=== PATIENT | female | born 1965 | race Caucasian/White ===

== ENCOUNTER 2017-01-16 07:04 | Observation (INO) | payer MEDICARE, OTHER ==
[2017-01-16] MEDS ORDERED: methylPREDNISolone Depo 80 mg/ml Inj ONE (11:17)
[2017-01-16] MEDS ORDERED: Lidocaine 1% Inj (20ml) ONE (11:18)
[2017-01-16] MEDS ORDERED: Bupivacaine HCl 0.5% PF (10 ml) Inj ONE (11:18)
[2017-01-16] MEDS ORDERED: Midazolam 2 MG/2 ML VIAL ONE (11:26)
[2017-01-16] MEDS ORDERED: Lactated Ringer's 1,000 ML IV ONE (11:28)
[2017-01-16] MEDS ORDERED: Lidocaine 1% Inj (20ml) IJ ONE (11:35)
[2017-01-16] MEDS ORDERED: methylPREDNISolone Depo 80 mg/ml Inj IM ONE (11:35)
[2017-01-16] MEDS ORDERED: Bupivacaine HCl 0.5% PF (10 ml) Inj IJ ONE (11:35)
[2017-01-16] MEDS ORDERED: Dexamethasone 4 mg/1 ml IVP PRN (12:33)
[2017-01-16] MEDS ORDERED: Morphine 4 MG/ML VIAL IVP PRN (15:30)
--- NOTE | 2017-01-16 19:28 | CARD ---
APPROVED REPORT EKG Measurement Heart [id number] <Conclusion> Demand Ventricular paced rhythm Underlying rhythm is sinus Abnormal ECG
[2017-01-16] MEDS: Lactated Ringer's 1,000 ML IV SCH (22:28)
--- NOTE | 2017-01-17 03:08 | OP ---
PROCEDURE DATE: 01/16/2017 PREOPERATIVE DIAGNOSIS: Left occipital neuralgia. POSTOPERATIVE DIAGNOSIS: Left occipital neuralgia PROCEDURE: Radiofrequency lesion of left occipital greater and lesser occipital nerves. SURGEON: Dr. Cline. CO-SURGEON AND THREADING MACHINE SETTER: Dr. Hernandez DESCRIPTION OF PROCEDURE: Patient was brought to the operating room, placed in a right lateral position, left occipital area was thoroughly prepped and draped in a sterile manner. At this point, lidocaine and epinephrine has been used in the left occipital area and occipital groove and with the help of an ultrasound, the occipital artery has been noted and medial to that, the occipital nerve anatomically identified by pressing the area. At this point, the needles have been placed near the lesser and greater occipital nerves and initially they have been stimulated and pain was noted. The sensations were noted going up to the occipital area corresponding distribution. Later the radiofrequency lesion has been applied by stimulating the nerves and giving thermal heat with radiofrequency lesions. Once this has been done, no focal deficits noted. Patient was found to be pain free. The needles have been removed and patient tolerated the procedure well. Justin Cline MD CHAN
[2017-01-17] MEDS ORDERED: Levothyroxine 100 MCG TAB PO SCH (06:30)
[2017-01-17 08:07] VITALS: BP 113/71; PULSE 69; RESP 20; TEMP 98.1; O2SAT 98
[2017-01-17] MEDS: Lactated Ringer's 1,000 ML IV SCH ×2 (09:39→09:40)
[2017-01-17] MEDS: Oxycodone/Acetaminophen 5/325 mg Tab PO PRN ×2 (09:50→13:14)
--- NOTE | 2017-01-17 09:56 | CP.PCM.CON ---
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 She had a resection of the same but since has had several recurrences with several surgeries for the same. She has been on chemotherapy with Temodar off and on since. She was admitted for radiofrequncy treatment of neuropathy.She will get her chemotherapy as soon as her insurance approves of it. Past Patient History - Infectious Disease Hx of Infectious Diseases: None - Tetanus Immunizations Tetanus Immunization: Unknown - Past Medical History & Family History Past Medical History?: Yes - Past Social History Smoking Status: Never Smoked - CARDIAC Hx Cardiac Disorders: Yes Hx Angina: Yes Hx Cardia Arrhythmia: No Hx Circulatory Problems: No Hx Congestive Heart Failure: No Hx Heart Attack: No Hx Heart Murmur: No Hx Heart Transplant: No Hx Hypercholesterolemia: Yes Hx Hypertension: Yes Hx Hypotension: Yes Hx Internal Defibrillator: No Hx Mitral Valve Prolapse: No Hx Pacemaker: Yes Hx Peripheral Edema: No Hx Peripheral Vascular Disease: No - PULMONARY Hx Respiratory Disorders: Yes Hx Asthma: Yes Hx Bronchitis: No Hx Chronic Obstructive Pulmonary Disease (COPD): No Hx Emphysema: No Hx Lung Cancer: No Hx Pneumonia: No Hx Pulmonary Edema: No Hx Pulmonary Embolism: No Hx Respiratory Aspiration: No Hx Respiratory Tract Infection: No Hx Sleep Apnea: No Hx Tuberculosis: No - NEUROLOGICAL Hx Neurological Disorder: Yes Hx Alzheimer's Disease: No HX Cerebrovascular Accident: No Hx Dementia: No Hx Dizziness: Yes Hx Meningitis: No Hx Migraine: No Hx Multiple Sclerosis: No Hx Paralysis: No Hx Parkinson's Disease: No Hx Seizures: Yes Hx Syncope: Yes Hx Transient Ischemic Attacks (TIA): No Hx Vertigo: No Other/Comment: brain tumors - HEENT Hx HEENT Problems: No Hx Blind: No Hx Cataracts: No 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) Hx Difficulty Chewing: No Hx Epistaxis: No Hx Glaucoma: No Hx Macular Degeneration: No Other/Comment: Poor vision to bilateral eyes R>L - RENAL Hx Chronic Kidney Disease: Yes Hx Kidney Stones: Yes Hx Neurogenic Bladder: No Hx Pyelonephritis: No Hx Renal (Kidney) Cancer: No Hx Renal Failure: Yes - ENDOCRINE/METABOLIC Hx Endocrine Disorders: Yes Hx Adrenal Cancer: No Hx Diabetes Insipidus: No Hx Diabetes Mellitus Type 1: Yes Hx Diabetes Mellitus Type 2: Yes Hx Hyperthyroidism: No Hx Hypothyroidism: Yes Hx Systemic Lupus Erythematosus: No - HEMATOLOGICAL/ONCOLOGICAL Hx Blood Disorders: No Hx AIDS: No Hx Anemia: Yes Hx Blood Transfusions: Yes Hx Blood Transfusion Reaction: No Hx Bruising: No Hx Cancer: Yes Hx Chemotherapy: Yes Hx Cirrhosis: No Hx Gum Bleeding: No Hx Hemophilia: No Hx Hepatitis A: No Hx Hepatitis B: No Hx Hepatitis C: No Hx Human Immunodeficiency Virus (HIV): No Hx Leukemia: No Hx Metastesis: No Hx Shingles: No Hx Sickle Cell Disease: No Hx Unexplained Bleeding: No Hx von Willebrand's Disease: No - INTEGUMENTARY Hx Dermatological Problems: No Hx Basil Cell: No Hx Fontenot: No Hx Cellulitis: No Hx Eczema: No Hx Melanoma: No Hx Psoriasis: No Hx Squamous Cell: No - MUSCULOSKELETAL/RHEUMATOLOGICAL Hx Musculoskeletal Disorders: No Hx Arthritis: No Hx Back Pain: No Hx Degenerative Joint Disease: No Hx Falls: No Hx Fractures: No Hx Gout: No Hx Herniated Disk: No Hx Myasthenia Gravis: No Hx Osteoarthritis: No Hx Osteomyelitis: No Hx Osteoporosis: No Hx Rhabdomyolysis: No Hx Rheumatoid Arthritis: Yes Hx Spinal Stenosis: No Hx Unsteady Gait: Yes - GASTROINTESTINAL Hx Gastrointestinal Disorders: No Hx Bowel Surgery: No Hx Clostridium Difficile: No Hx Colitis: No Hx Colostomy: No Hx Crohn's Disease: No Hx Diverticulitis: No Hx Esophageal Varices: No Hx Fatty Liver Disease: No Hx Gall Bladder Disease: No Hx Gastritis: No Hx Gastroesophageal Reflux: No Hx Hemorrhoids: No Hx Ileostomy: No Hx Irritable Bowel: No Hx Liver Failure: No Hx Pancreatitis: No HX Swallowing Problems: No Hx Ulcer: No - GENITOURINARY/GYNECOLOGICAL Hx Genitourinary Disorders: No Hx Bladder Cancer: No Hx Bladder Stone: No Hx Cervical Cancer: No Hx Hematuria: No Hx Incontinence: No Hx Ovarian Cancer: No Hx Postmenopausal Bleeding: No Hx Reproductive Disorders: No Hx Sexually Transmitted Disorders: No Hx Uterine Cancer: No Hx Urinary Tract Infection: No - PSYCHIATRIC Hx Psychophysiologic Disorder: No Hx Anxiety: Yes Hx Bipolar Disorder: No Hx Depression: Yes Hx Emotional Abuse: No Hx Hallucinations: No Hx Panic Symptoms: No Hx Paranoia: No Hx Post Traumatic Stress Disorder: No Hx Psychosis: No Hx Physical Abuse: No Hx Schizophrenia: No Hx Sexual Abuse: No Hx Substance Use: No - SURGICAL HISTORY Hx Surgeries: Yes Hx Abdominal Aortic Aneurysm Repair: No Hx Amputation: No Hx Angiogram: No Hx Angioplasty: No Hx Appendectomy: No Hx Arteriovenous Shunt: No Hx Arthroscopy: No Hx Bile Duct Stent: No Hx Breast Biopsy: No Hx Cataract Extraction: No Hx Cardiac Catheterization: No Hx Carotid Endarterectomy: No Hx Section: No Hx Cholecystectomy: No Hx Coronary Artery Bypass Graft: No Hx Coronary Stent: No Hx Dilation and Curettage: No Hx Eye Surgery: No Hx Femoral-Popliteal Bypass Graft: No Hx Gastric Bypass Surgery: No Hx Herniorrhaphy: No Hx Hysterectomy: Yes (partial) Hx Joint Replacement: No Hx Kidney Transplant: No Hx Liver Transplant: No Hx Mastectomy: No Hx Musculoskeletal Surgery: No Hx Open Heart Surgery: No Hx Open Reduction Internal Fixation: No Hx Orthopedic Surgery: No Hx Parathyroidectomy: No Hx Penile Implant: No Hx Pulmonary Surgery: No Hx Splenectomy: No Hx Thyroidectomy: No Hx Tonsillectomy: Yes Hx Tubal Ligation: Yes Hx Valve Replacement: No Hx Vascular Surgery: No Hx Vascular Access Device: No Other/Comment: pacemaker,brain tumor,kidney stones removed - ANESTHESIA Hx Anesthesia: Yes Hx Anesthesia Reactions: No Hx Malignant Hyperthermia: No Has any member of the family had a problem w/ anesthesia?: No Meds Allergies/Adverse Reactions: Allergies Allergy/AdvReac Type Severity Reaction Status Date / Time seasonal Allergy CONGESTION Uncoded 09/28/15 13:52 - Medications Medications: Current Medications Alprazolam (Xanax) 2 mg PO TID PRN PRN Reason: Anxiety Last Admin: 01/16/17 22:27 Dose: 2 mg Carbamazepine (Tegretol) 200 mg PO Q12 [facility] Last Admin: 01/16/17 22:28 Dose: 200 mg Famotidine (Pepcid) 20 mg PO BID [facility] Last Admin: 01/16/17 18:18 Dose: 20 mg Hydromorphone HCl (Dilaudid) 0.5 mg IVP Q15MIN PRN PRN Reason: Pain, moderate (4-7) Lactated Ringer's (Lactated Ringer's) 1,000 mls @ 100 mls/hr IV .Q10H [facility] Last Admin: 01/16/17 22:28 Dose: 100 mls/hr Levetiracetam (Keppra) 1,000 mg PO BID [facility] Last Admin: 07/18/17 20:30 Dose: 1,000 mg Levothyroxine Sodium (Synthroid) 100 mcg PO DAILY@0630 [facility] Last Admin: 01/17/17 06:14 Dose: 100 mcg Midodrine (Proamatine) 2.5 mg PO TID [facility] Last Admin: 01/16/17 20:30 Dose: 2.5 mg Montelukast Sodium (Singulair) 10 mg PO [facility] Last Admin: 01/16/17 22:28 Dose: 10 mg Morphine Sulfate (Morphine) 2 mg IVP Q6 PRN PRN Reason: Pain, severe (8-10) Last Admin: 01/17/17 02:15 Dose: 2 mg Oxycodone/Acetaminophen (Percocet 5/325 Mg Tab) 2 tab PO Q4 PRN PRN Reason: Pain, moderate (4-7) Stop: 01/19/17 15:03 Paroxetine HCl (Paxil) 40 mg PO DAILY [facility] Pregabalin (Lyrica) 75 mg PO BID [facility] Last Admin: 01/16/17 18:17 Dose: 75 mg Topiramate (Topamax) 50 mg PO BID [facility] Last Admin: 01/16/17 20:31 Dose: 50 mg Trazodone HCl (Desyrel) 100 mg PO [facility] Last Admin: 01/16/17 22:28 Dose: 100 mg Physical Exam - Additional Findings Additional findings: Physical exam; Pt is alert, well oriented in no acute distress neck; Supple, no adenopathy Chest; clear, no rales or rhonchi Heart; RSR, no murmur Abd; Soft, no mass, no h/s megaly Results - Vital Signs Recent Vital Signs: Last Vital Signs Temp 98.1 F 01/17/17 08:06 Pulse 69 01/17/17 08:06 Resp 20 01/17/17 08:06 BP 113/71 01/17/17 08:06 Pulse Ox 98 01/17/17 08:06 - Labs Labs: Laboratory Results - last 24 hr 01/16/17 01/16/17 01/16/17 12:23 16:20 21:10 POC Glucose (mg/dL) 81 101 124 H 01/17/17 06:14 POC Glucose (mg/dL) 114 H Assessment & Plan - Assessment and Plan (Free Text) Assessment: Impression; Cranial malignant meningioma Plan: Plan; Will restart chemo after discharge
--- NOTE | 2017-01-17 10:39 | CP.PCM.HP ---
History of Present Illness - History of Present Illness History of Present Illness: This is a 51 y/o female with chronic headache from chronic malignant meningioma. Has been suffering from neuropathy from the condition. Had received chemotherapy in the past. Has been on chronic pain meds. Admitted for radiofreq ablationof the occipital nerve Post op period was unremarkable. Present on Admission - Present on Admission Any Indicators Present on Admission: No History of DVT/PE: No History of Uncontrolled Diabetes: No Urinary Catheter: No Decubitus Ulcer Present: No Review of Systems - Constitutional Constitutional: Fatigue, Headache, Lethargy Past Patient History - Infectious Disease Hx of Infectious Diseases: None - Tetanus Immunizations Tetanus Immunization: Unknown - Past Medical History & Family History Past Medical History?: Yes - Past Social History Smoking Status: Never Smoked - CARDIAC Hx Cardiac Disorders: Yes Hx Angina: Yes Hx Cardia Arrhythmia: No Hx Circulatory Problems: No Hx Congestive Heart Failure: No Hx Heart Attack: No Hx Heart Murmur: No Hx Heart Transplant: No Hx Hypercholesterolemia: Yes Hx Hypertension: Yes Hx Hypotension: Yes Hx Internal Defibrillator: No Hx Mitral Valve Prolapse: No Hx Pacemaker: Yes Hx Peripheral Edema: No Hx Peripheral Vascular Disease: No - PULMONARY Hx Respiratory Disorders: Yes Hx Asthma: Yes Hx Bronchitis: No Hx Chronic Obstructive Pulmonary Disease (COPD): No Hx Emphysema: No Hx Lung Cancer: No Hx Pneumonia: No Hx Pulmonary Edema: No Hx Pulmonary Embolism: No Hx Respiratory Aspiration: No Hx Respiratory Tract Infection: No Hx Sleep Apnea: No Hx Tuberculosis: No - NEUROLOGICAL Hx Neurological Disorder: Yes Hx Alzheimer's Disease: No HX Cerebrovascular Accident: No Hx Dementia: No Hx Dizziness: Yes Hx Meningitis: No Hx Migraine: No Hx Multiple Sclerosis: No Hx Paralysis: No Hx Parkinson's Disease: No Hx Seizures: Yes Hx Syncope: Yes Hx Transient Ischemic Attacks (TIA): No Hx Vertigo: No Other/Comment: brain tumors - HEENT Hx HEENT Problems: No Hx Blind: No Hx Cataracts: No 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) Hx Difficulty Chewing: No Hx Epistaxis: No Hx Glaucoma: No Hx Macular Degeneration: No Other/Comment: Poor vision to bilateral eyes R>L - RENAL Hx Chronic Kidney Disease: Yes Hx Kidney Stones: Yes Hx Neurogenic Bladder: No Hx Pyelonephritis: No Hx Renal (Kidney) Cancer: No Hx Renal Failure: Yes - ENDOCRINE/METABOLIC Hx Endocrine Disorders: Yes Hx Adrenal Cancer: No Hx Diabetes Insipidus: No Hx Diabetes Mellitus Type 1: Yes Hx Diabetes Mellitus Type 2: Yes Hx Hyperthyroidism: No Hx Hypothyroidism: Yes Hx Systemic Lupus Erythematosus: No - HEMATOLOGICAL/ONCOLOGICAL Hx Blood Disorders: No Hx AIDS: No Hx Anemia: Yes Hx Blood Transfusions: Yes Hx Blood Transfusion Reaction: No Hx Bruising: No Hx Cancer: Yes Hx Chemotherapy: Yes Hx Cirrhosis: No Hx Gum Bleeding: No Hx Hemophilia: No Hx Hepatitis A: No Hx Hepatitis B: No Hx Hepatitis C: No Hx Human Immunodeficiency Virus (HIV): No Hx Leukemia: No Hx Metastesis: No Hx Shingles: No Hx Sickle Cell Disease: No Hx Unexplained Bleeding: No Hx von Willebrand's Disease: No - INTEGUMENTARY Hx Dermatological Problems: No Hx Basil Cell: No Hx Fontenot: No Hx Cellulitis: No Hx Eczema: No Hx Melanoma: No Hx Psoriasis: No Hx Squamous Cell: No - MUSCULOSKELETAL/RHEUMATOLOGICAL Hx Musculoskeletal Disorders: No Hx Arthritis: No Hx Back Pain: No Hx Degenerative Joint Disease: No Hx Falls: No Hx Fractures: No Hx Gout: No Hx Herniated Disk: No Hx Myasthenia Gravis: No Hx Osteoarthritis: No Hx Osteomyelitis: No Hx Osteoporosis: No Hx Rhabdomyolysis: No Hx Rheumatoid Arthritis: Yes Hx Spinal Stenosis: No Hx Unsteady Gait: Yes - GASTROINTESTINAL Hx Gastrointestinal Disorders: No Hx Bowel Surgery: No Hx Clostridium Difficile: No Hx Colitis: No Hx Colostomy: No Hx Crohn's Disease: No Hx Diverticulitis: No Hx Esophageal Varices: No Hx Fatty Liver Disease: No Hx Gall Bladder Disease: No Hx Gastritis: No Hx Gastroesophageal Reflux: No Hx Hemorrhoids: No Hx Ileostomy: No Hx Irritable Bowel: No Hx Liver Failure: No Hx Pancreatitis: No HX Swallowing Problems: No Hx Ulcer: No - GENITOURINARY/GYNECOLOGICAL Hx Genitourinary Disorders: No Hx Bladder Cancer: No Hx Bladder Stone: No Hx Cervical Cancer: No Hx Hematuria: No Hx Incontinence: No Hx Ovarian Cancer: No Hx Postmenopausal Bleeding: No Hx Reproductive Disorders: No Hx Sexually Transmitted Disorders: No Hx Uterine Cancer: No Hx Urinary Tract Infection: No - PSYCHIATRIC Hx Psychophysiologic Disorder: No Hx Anxiety: Yes Hx Bipolar Disorder: No Hx Depression: Yes Hx Emotional Abuse: No Hx Hallucinations: No Hx Panic Symptoms: No Hx Paranoia: No Hx Post Traumatic Stress Disorder: No Hx Psychosis: No Hx Physical Abuse: No Hx Schizophrenia: No Hx Sexual Abuse: No Hx Substance Use: No - SURGICAL HISTORY Hx Surgeries: Yes Hx Abdominal Aortic Aneurysm Repair: No Hx Amputation: No Hx Angiogram: No Hx Angioplasty: No Hx Appendectomy: No Hx Arteriovenous Shunt: No Hx Arthroscopy: No Hx Bile Duct Stent: No Hx Breast Biopsy: No Hx Cataract Extraction: No Hx Cardiac Catheterization: No Hx Carotid Endarterectomy: No Hx Section: No Hx Cholecystectomy: No Hx Coronary Artery Bypass Graft: No Hx Coronary Stent: No Hx Dilation and Curettage: No Hx Eye Surgery: No Hx Femoral-Popliteal Bypass Graft: No Hx Gastric Bypass Surgery: No Hx Herniorrhaphy: No Hx Hysterectomy: Yes (partial) Hx Joint Replacement: No Hx Kidney Transplant: No Hx Liver Transplant: No Hx Mastectomy: No Hx Musculoskeletal Surgery: No Hx Open Heart Surgery: No Hx Open Reduction Internal Fixation: No Hx Orthopedic Surgery: No Hx Parathyroidectomy: No Hx Penile Implant: No Hx Pulmonary Surgery: No Hx Splenectomy: No Hx Thyroidectomy: No Hx Tonsillectomy: Yes Hx Tubal Ligation: Yes Hx Valve Replacement: No Hx Vascular Surgery: No Hx Vascular Access Device: No Other/Comment: pacemaker,brain tumor,kidney stones removed - ANESTHESIA Hx Anesthesia: Yes Hx Anesthesia Reactions: No Hx Malignant Hyperthermia: No Has any member of the family had a problem w/ anesthesia?: No Meds Allergies/Adverse Reactions: Allergies Allergy/AdvReac Type Severity Reaction Status Date / Time seasonal Allergy CONGESTION Uncoded 09/28/15 13:52 Physical Exam - Head Exam Head Exam: NORMAL INSPECTION - Eye Exam Eye Exam: Normal appearance - Respiratory Exam Respiratory Exam: Clear to Auscultation Bilateral - Cardiovascular Exam Cardiovascular Exam: REGULAR RHYTHM - GI/Abdominal Exam GI & Abdominal Exam: Normal Bowel Sounds Results - Vital Signs Recent Vital Signs: Last Vital Signs Temp 98.1 F 01/17/17 08:06 Pulse 69 01/17/17 08:06 Resp 20 01/17/17 08:06 BP 113/71 01/17/17 08:06 Pulse Ox 98 01/17/17 08:06 - Labs Labs: Laboratory Results - last 24 hr 01/16/17 01/16/17 01/16/17 12:23 16:20 21:10 POC Glucose (mg/dL) 81 101 124 H 01/17/17 06:14 POC Glucose (mg/dL) 114 H Assessment & Plan (1) Headache Status: Active (2) Anemia Status: Acute (3) Hypothyroidism Status: Acute (4) Meningioma, malignant Status: Acute (5) Seizure disorder Status: Acute - Assessment and Plan (Free Text) Plan: pain meds monitor umaien for sleep pain meds DC plan for am
--- NOTE | 2017-01-17 10:43 | CP.PCM.DIS ---
Provider - Provider Date of Admission: 01/16/17 14:51 Attending physician: Yariel Hancock MD Primary care physician: Kayla Lima MD Time Spent in preparation of Discharge (in minutes): 30 Diagnosis - Discharge Diagnosis (1) Headache Status: Active (2) Anemia Status: Acute (3) Hypothyroidism Status: Acute (4) Meningioma, malignant Status: Acute (5) Seizure disorder Status: Acute Hospital Course - Lab Results Lab Results: Most Recent Lab Values POC Glucose (mg/dL) 114 mg/dL (65-110) H 01/17/17 06:14 - Hospital Course Hospital Course: This is a 51 y/o female admitted for occipital nerve block Has been suffering from neuropathy and headaches Has a hx of malignant meningioma. Post op period was unremarkable Patient was sent home in stable condition on pain meds and Zolpdipem. Discharge Exam - Head Exam Head Exam: NORMAL INSPECTION - Eye Exam Eye Exam: Normal appearance - Respiratory Exam Respiratory Exam: NORMAL BREATHING PATTERN - Cardiovascular Exam Cardiovascular Exam: REGULAR RHYTHM - GI/Abdominal Exam GI & Abdominal Exam: Normal Bowel Sounds - Neurological Exam Neurological exam: CN II-XII Intact - Psychiatric Exam Psychiatric exam: Normal Mood Discharge Plan - Follow Up Plan Condition: GOOD Disposition: HOME/ ROUTINE Instructions: Hypothyroidism (DC), Diabetes Mellitus Type 2 in Adults (DC) Additional Instructions: follow up with Dr Jensen PMD. contiue all pain meds from home Rx ambien 5 mg # 30 Referrals: Kayla Lima MD [Primary Care Provider] -
== END 2017-01-17 14:45 | disposition home or self-care (01) ==
LOC: H.OPSURG 07:04 → H.MEDSURG1 14:51
PROVIDERS: ADMIT Family Medicine; ATTEND Family Medicine
DX: M54.81 Occipital neuralgia (principal); D64.9 Anemia, unspecified; E03.9 Hypothyroidism, unspecified; G62.9 Polyneuropathy, unspecified; G40.909 Epilepsy, unspecified, not intractable, without status epilepticus; C70.0 Malignant neoplasm of cerebral meninges
CPT/HCPCS: 64999; 82948; 93005; 97162; G0378; G8978; G8979; G8980; J1040; J1170; J2250; J2270; J2405; J3010; J7120

== ENCOUNTER 2017-01-21 14:00 | Inpatient (IN) | payer MEDICARE, OTHER ==
[2017-01-21] MEDS ORDERED: Morphine 4 MG/ML VIAL IVP ONE ×2 (14:44→18:18)
--- NOTE | 2017-01-21 14:56 | ED PDOC ---
HPI: SOB/CHF/COPD Time Seen by Provider: 01/21/17 14:18 Chief Complaint (Nursing): Shortness Of Breath Chief Complaint (Provider): Shortness of breath History Per: Patient History/Exam Limitations: no limitations Onset/Duration Of Symptoms: Days (3x days) Current Symptoms Are (Timing): Still Present Current Respiratory Medications: None Severity: Moderate Associated Symptoms: Chest Pain, Dizziness. denies: Productive Cough Additional Complaint(s): 51 year old female with a pertinent medical history of brain tumors (patient is not on active chemotherapy), chronic neck pain, diabetes, seizures, and hypercholesteromia presents to the ED with complaints of shortness of breath that started on Sunday. She reports having associated symptoms of dizziness, chest pain, neck pain, throat pain, and vomiting (yesterday). She denies taking percocets for neck pain relief today because she was at home alone, and was afraid to take them alone. She reports that she was recently admitted to the hospital on 01/16/17 for a headache and had "injections put into her head for pain relief", but has since been discharged. She also reports having similar symptoms 3x years ago, when she needed a pacemaker. She denies having a cough. PMD: Dr. Melchor and Dr. Hancock Oncologist: Miguelina Lima MD water resource engineering specialist: Dr. Hernandez Neurosurgeon: Dr. Cline Past Medical History Reviewed: Historical Data, Nursing Documentation, Vital Signs Vital Signs: Last Vital Signs Temp 97.7 F 01/21/17 14:10 Pulse 84 01/21/17 16:28 Resp 18 01/21/17 14:32 BP 101/74 01/21/17 14:10 Pulse Ox 98 01/21/17 16:28 - Medical History PMH: Anemia, Anxiety, Asthma, CAD, Depression, Diabetes, HTN, Hypercholesterolemia, Hypothyroidism, Kidney Stones, Malignancy (Malignant meningioma), Chronic Kidney Disease, Rheumatoid Arthritis, Seizures Denies: Alzheimer's Disease, Arthritis, Atrial Fibrillation, Bipolar Disorder , Bronchitis, Cardia Arrhythmia, CHF, COPD, Crohn's Disease, Dementia, Diverticulitis, Emphysema, Fractures, Gastritis, Gall Bladder Disease, HIV, Hyperthyroidism, Migraine, Mitral Valve Prolapse, Multiple Sclerosis, Osteoporosis, Pancreatitis, Paranoia, Parkinson's Disease, Peripheral Edema, Pneumonia, Post Traumatic Stress Disorder, Pulmonary Embolism, Schizophrenia, Sickle Cell Disease, Sexually Transmitted Disease, Sleep Apnea, TIA - Surgical History Surgical History: Pacemaker, Tonsillectomy Denies: Appendectomy, CABG, Carotid Endarterectomy, Cholecystectomy, Coronary Stent - Family History Family History: States: Unknown Family Hx - Social History Current smoker - smoking cessation education provided: No Alcohol: None Drugs: Denies - Immunization History Hx Tetanus Toxoid Vaccination: No Hx Influenza Vaccination: No Hx Pneumococcal Vaccination: No - Home Medications Home Medications: Ambulatory Orders Medication Instructions Recorded Acetaminophen/Oxycodone Hydr 1 tab PO Q6 PRN 02/21/15 [Percocet 10/325 mg Tab] Alprazolam [Xanax] 2 mg PO TID 02/21/15 Insulin Detemir [Levemir Flexpen] 12 units SC HS 02/21/15 Levetiracetam [Keppra] 750 mg PO TID 02/21/15 Levothyroxine [Synthroid] 100 mcg PO DAILY 02/21/15 Montelukast [Singulair] 10 mg PO HS 02/21/15 Rosuvastatin Calcium [Crestor] 10 mg PO HS 02/21/15 Zolpidem [Ambien] 10 mg PO HS 02/21/15 carBAMazepine [Tegretol] 200 mg PO BID 02/21/15 Dulaglutide [Trulicity] 1.5 mg SC QWK 05/19/16 Ferrous Sulfate [Feosol] 325 mg PO TID #90 tab 05/19/16 Meclizine HCl 12.5 mg PO BID PRN 05/19/16 Midodrine [Proamatine] 5 mg PO BID 05/19/16 Paroxetine HCl [Paxil] 40 mg PO DAILY 05/19/16 Pregabalin [Lyrica] 75 mg PO TID 05/19/16 Topiramate [Topamax] 50 mg PO BID 05/19/16 Trazodone HCl 150 mg PO HS 05/19/16 traMADol [Ultram] 25 mg PO TID PRN #15 tab 05/19/16 - Allergies Allergies/Adverse Reactions: Allergies Allergy/AdvReac Type Severity Reaction Status Date / Time seasonal Allergy CONGESTION Uncoded 09/28/15 13:52 Review of Systems ROS Statement: Except As Marked, All Systems Reviewed And Found Negative Constitutional: Negative for: Fever, Chills ENT: Positive for: Throat Pain Cardiovascular: Positive for: Chest Pain Respiratory: Positive for: Shortness of Breath. Negative for: Cough Gastrointestinal: Positive for: Vomiting Musculoskeletal: Positive for: Neck Pain Neurological: Positive for: Dizziness Physical Exam - Reviewed Nursing Documentation Reviewed: Yes Vital Signs Reviewed: Yes - Physical Exam Appears: Positive for: Well, Non-toxic, No Acute Distress Head Exam: Positive for: ATRAUMATIC, NORMOCEPHALIC Skin: Positive for: Normal Color, Warm, Dry ENT: Positive for: Normal ENT Inspection Neck: Positive for: Normal Cardiovascular/Chest: Positive for: Regular Rate, Rhythm Respiratory: Positive for: Normal Breath Sounds. Negative for: Respiratory Distress Gastrointestinal/Abdominal: Positive for: Normal Exam Extremity: Positive for: Normal ROM. Negative for: Tenderness, Calf Tenderness , Swelling Neurologic/Psych: Positive for: Alert, Oriented (3x) - Laboratory Results Result Diagrams: 01/21/17 15:39 01/21/17 16:59 - ECG ECG: Positive for: Interpreted By Me, Viewed By Me ECG Rhythm: Positive for: Normal QRS, Normal ST Segment, Sinus Rhythm (normal. Rate of 84 beats per minute). Negative for: ST/T Changes Rate: 84 (normal) O2 Sat by Pulse Oximetry: 98 (98) Pulse Ox Interpretation: Normal - Radiology X-Ray: Viewed By Me, Read By Radiologist X-Ray Interpretation: No Acute Disease - Progress ED Course And Treament: Reviewed patient's previous ED visits. Patient was admitted under Dr. Cline on 01/16/17 for an occipital nerve block. Dr. Hernandez performed radio frequency ablation on occipital nerve. Confirmed patient's past medical history. Medical Decision Making Medical Decision Makin:18 Initial impression: 51 year old female with dyspnea, dysphonia, neck pain, and chest pain. Differential diagnoses include but are not limited to acute coronary syndrome, congestive heart failure, bronchitis, and acute on chronic neck pain due to neuropathies. Initial plan: * XRay chest 2 views * EKG * b-type natriuretic peptide * BMP * troponin I * CBC * reevaluation 16:12 Chest Xray read and reviewed by radiologist FINDINGS: LUNGS: No active pulmonary disease. PLEURA: No significant pleural effusion identified. No pneumothorax apparent. CARDIOVASCULAR: Normal. Pacemaker and lead in place. OSSEOUS STRUCTURES: No significant abnormalities. VISUALIZED UPPER ABDOMEN: Normal. OTHER FINDINGS: None. IMPRESSION: No active disease. Discussed with Dr Melchor who admits to Dr Hancock. Discussed with Dr Hancock who will admit for chest pain and PE work up. Scribe Attestation: Documented by Chanelle Burnett, acting as a scribe for Jaden Mckeon MD. Provider Scribe Attestation: All medical record entries made by the Scribe were at my direction and personally dictated by me. I have reviewed the chart and agree that the record accurately reflects my personal performance of the history, physical exam, medical decision making, and the department course for this patient. I have also personally directed, reviewed, and agree with the discharge instructions and disposition. Disposition - Clinical Impression Clinical Impression: Dyspnea, Chest pain, Neck pain - Patient ED Disposition Is Patient to be Admitted: Yes Discussed With DrPb: Yariel Hancock Counseled Patient/Family Regarding: Studies Performed, Diagnosis - Disposition Disposition Time: 17:59 Condition: FAIR - Pt Status Changed To: Hospital Disposition Of: Observation - POA Present On Arrival: None
[2017-01-21 15:51] LABS: BASO % 0.7 % (0.0-2.0); EOS # 0.1 K/uL (0.0-0.7); EOS % 2.7 % (0.0-4.0); HEMOGLOBIN 13.3 g/dL (12.0-16.0); MEAN CORPUSCULAR HEMOGLOBIN 27.8 pg (27.0-31.0); MEAN CORPUSCULAR HGB CONC 31.9 g/dL (33.0-37.0); MEAN PLATELET VOLUME 9.9 fl (7.2-11.7); MONO # 0.5 K/uL (0.0-0.8); NEUT # 2.6 K/uL (1.8-7.0); NEUT % 49.6 % (50.0-75.0); NRBC % 0.2 % (0.0-0.0); RBC 4.78 Mil/uL (3.80-5.20); RED CELL DISTRIBUTION WIDTH 14.1 % (11.5-14.5); WHITE BLOOD COUNT 5.3 K/uL (4.8-10.8)
--- NOTE | 2017-01-21 16:14 | RAD ---
HISTORY: dyspnea COMPARISON: No prior. TECHNIQUE: Chest PA and lateral FINDINGS: LUNGS: No active pulmonary disease. PLEURA: No significant pleural effusion identified. No pneumothorax apparent. CARDIOVASCULAR: Normal. Pacemaker and lead in place. OSSEOUS STRUCTURES: No significant abnormalities. VISUALIZED UPPER ABDOMEN: Normal. OTHER FINDINGS: None. IMPRESSION: No active disease.
[2017-01-21 17:18] LABS: ALB/GLOB RATIO 1.1 (1.0-2.1); ALBUMIN 4.8 g/dL (3.5-5.0); ALT/SGPT 27 U/L (9-52); AST/SGOT 35 U/L (14-36); BLOOD UREA NITROGEN 14 mg/dl (7-17); CALCIUM 9.9 mg/dL (8.4-10.2); GFR AFRICAN-AMERICAN > 60; GFR NON-AFRICAN AMERICAN > 60
[2017-01-21] MEDS ORDERED: Iodixanol 320 MG/ML 100 ML BOTTLE IV ONE (17:49)
[2017-01-21] MEDS ORDERED: Sodium Chloride 0.9% 50 ML IV ONE (17:49)
[2017-01-21] MEDS ORDERED: Enoxaparin 60 mg Syringe SC STA (17:57)
[2017-01-21] MEDS: Oxycodone/Acetaminophen 5/325 mg Tab PO PRN (21:28)
--- NOTE | 2017-01-21 23:59 | CP.PCM.HP ---
History of Present Illness - History of Present Illness History of Present Illness: This is a 51 y/o female recently discharged ofr headaches now complains of chest wall pain. Has a hx of chronic malignant meningioma. She had received treatment for meningioma awhile back and has been following up with DR Lee Lima. Claims that she never had this type of chest pain before, Denies any cough or palpitation or SOB. Past hx chronic malignant menigioma chronic headaches seizure disorder Present on Admission - Present on Admission Any Indicators Present on Admission: No History of DVT/PE: No History of Uncontrolled Diabetes: No Urinary Catheter: No Decubitus Ulcer Present: No Review of Systems - Constitutional Constitutional: Anorexia, Headache Past Patient History - Infectious Disease Hx of Infectious Diseases: None - Tetanus Immunizations Tetanus Immunization: Unknown - Past Medical History & Family History Past Medical History?: Yes - Past Social History Alcohol: None Drugs: Denies - CARDIAC Hx Atrial Fibrillation: No Hx Cardia Arrhythmia: No Hx Congestive Heart Failure: No Hx Hypercholesterolemia: Yes Hx Hypertension: Yes Hx Mitral Valve Prolapse: No Hx Pacemaker: Yes Hx Peripheral Edema: No - PULMONARY Hx Asthma: Yes Hx Bronchitis: No Hx Chronic Obstructive Pulmonary Disease (COPD): No Hx Emphysema: No Hx Pneumonia: No Hx Pulmonary Embolism: No Hx Sleep Apnea: No - NEUROLOGICAL Hx Alzheimer's Disease: No Hx Dementia: No Hx Migraine: No Hx Multiple Sclerosis: No Hx Parkinson's Disease: No Hx Seizures: Yes Hx Transient Ischemic Attacks (TIA): No - HEENT Hx HEENT Problems: No Hx Blind: No Hx Cataracts: No 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) Hx Difficulty Chewing: No Hx Epistaxis: No Hx Glaucoma: No Hx Macular Degeneration: No Other/Comment: Poor vision to bilateral eyes R>L - RENAL Hx Chronic Kidney Disease: Yes - ENDOCRINE/METABOLIC Hx Hyperthyroidism: No Hx Hypothyroidism: Yes - HEMATOLOGICAL/ONCOLOGICAL Hx Anemia: Yes Hx Human Immunodeficiency Virus (HIV): No Hx Sickle Cell Disease: No - INTEGUMENTARY Hx Dermatological Problems: No Hx Basil Cell: No Hx Fontenot: No Hx Cellulitis: No Hx Eczema: No Hx Melanoma: No Hx Psoriasis: No Hx Squamous Cell: No - MUSCULOSKELETAL/RHEUMATOLOGICAL Hx Arthritis: No Hx Fractures: No Hx Osteoporosis: No Hx Rheumatoid Arthritis: Yes - GASTROINTESTINAL Hx Crohn's Disease: No Hx Diverticulitis: No Hx Gall Bladder Disease: No Hx Gastritis: No Hx Pancreatitis: No - GENITOURINARY/GYNECOLOGICAL Hx Sexually Transmitted Disorders: No - PSYCHIATRIC Hx Anxiety: Yes Hx Bipolar Disorder: No Hx Depression: Yes Hx Paranoia: No Hx Post Traumatic Stress Disorder: No Hx Schizophrenia: No - SURGICAL HISTORY Hx Appendectomy: No Hx Carotid Endarterectomy: No Hx Cholecystectomy: No Hx Coronary Artery Bypass Graft: No Hx Coronary Stent: No Hx Tonsillectomy: Yes - ANESTHESIA Hx Anesthesia: Yes Hx Anesthesia Reactions: No Hx Malignant Hyperthermia: No Meds Allergies/Adverse Reactions: Allergies Allergy/AdvReac Type Severity Reaction Status Date / Time seasonal Allergy CONGESTION Uncoded 09/28/15 13:52 Physical Exam - Head Exam Head Exam: NORMAL INSPECTION - Eye Exam Eye Exam: Normal appearance - ENT Exam ENT Exam: Mucous Membranes Moist - Respiratory Exam Respiratory Exam: NORMAL BREATHING PATTERN - Cardiovascular Exam Cardiovascular Exam: REGULAR RHYTHM - GI/Abdominal Exam GI & Abdominal Exam: Normal Bowel Sounds - Neurological Exam Neurological exam: CN II-XII Intact, Oriented x3 - Psychiatric Exam Psychiatric exam: Anxious Results - Vital Signs Recent Vital Signs: Last Vital Signs Temp 97.5 F L 01/21/17 21:46 Pulse 67 01/21/17 21:46 Resp 18 01/21/17 21:46 BP 112/76 01/21/17 21:46 Pulse Ox 100 01/21/17 21:46 - Labs Result Diagrams: 01/21/17 15:39 01/21/17 16:59 Assessment & Plan (1) Chest pain Status: Acute (2) Hyperlipemia Status: Acute (3) Hypothyroidism Status: Acute (4) Intractable headache Status: Acute (5) Meningioma Status: Acute - Assessment and Plan (Free Text) Plan: cont meds cont tx Cont pain meds VQ scan or CT scan chest cont all other home meds. telemetry
[2017-01-22] MEDS ORDERED: Oxycodone/Acetaminophen 5/325 mg Tab PO PRN ×2 (00:25→00:29)
[2017-01-22] MEDS: Oxycodone/Acetaminophen 5/325 mg Tab PO PRN ×2 (00:44→05:19)
[2017-01-22] MEDS: Levothyroxine 100 MCG TAB PO SCH (06:08)
[2017-01-22] MEDS: oxyCODONE 10 mg ER Tab (oxyCONTIN) PO SCH ×2 (09:17→18:09)
[2017-01-22] MEDS ORDERED: Sodium Chloride 0.9% 50 ML IV ONE (12:35)
[2017-01-22] MEDS ORDERED: Iodixanol 320 MG/ML 100 ML BOTTLE IV ONE (12:35)
--- NOTE | 2017-01-22 13:38 | CT ---
PROCEDURE: CT Chest with contrast (Pulmonary Angiogram) HISTORY: r/o pe COMPARISON: None available. TECHNIQUE: Axial computed tomography images were obtained of the chest in the pulmonary arterial phase of enhancement. Coronal and sagittal reformatted images were created and reviewed. Intravenous contrast dose: 95 mL Visipaque 320 Radiation dose: Total exam DLP = 247.86 mGy-cm. This CT exam was performed using one or more of the following dose reduction techniques: Automated exposure control, adjustment of the mA and/or kV according to patient size, and/or use of iterative reconstruction technique. FINDINGS: PULMONARY ARTERIES: There is a filling defect in segmental branch of the left lower lobe pulmonary artery. This is a somewhat atypical small defect that may reflect chronic pulmonary embolism but cannot rule out acute pulmonary embolism. No filling defect is seen elsewhere throughout the pulmonary artery bilaterally. AORTA: No acute findings. No thoracic aortic aneurysm. LUNGS: Unremarkable. No nodule, mass or pulmonary consolidation. PLEURAL SPACES: Unremarkable. No effusion or pneuomothorax. HEART: Unremarkable. No cardiomegaly. No significant pericardial effusion. LYMPH NODES: No lymphadenopathy. BONES, CHEST WALL: Unremarkable. No fracture or destructive lesion OTHER FINDINGS: Unremarkable. IMPRESSION: Left lower lobe segmental pulmonary artery filling defect, acute versus chronic thromboembolism. No additional abnormality.
[2017-01-22] MEDS: Megestrol Acetate 40 mg/ml Cup PO SCH (14:53)
[2017-01-22] MEDS ORDERED: Dextrose 5%/Lactated Ringer's 1,000 ML IV SCH (16:45)
--- NOTE | 2017-01-22 16:57 | CARD ---
APPROVED REPORT EKG Measurement Heart [id number] <Conclusion> Normal sinus rhythm Normal ECG
[2017-01-22] MEDS: Enoxaparin 60 mg Syringe SC SCH ×2 (18:12→21:22)
--- NOTE | 2017-01-22 20:43 | CP.PCM.CON ---
History of Present Illness - History of Present Illness History of Present Illness: 51 yo female with hx or recurrent meningioma/ CVA with weakness followed by dr alvarez recently had surgery for meningioma admitted with chest pain and SOB found to have DVT Review of Systems - Constitutional Constitutional: Anorexia - EENT Eyes: Blurred Vision Ears: absent: As Per HPI, Decreased Hearing, Ear Discharge, Ear Pain, Tinnitus, Abnormal Hearing, Disequilibrium, Dizziness, Other Nose/Mouth/Throat: absent: As Per HPI, Epistaxis, Nasal Congestion, Nasal Discharge, Nasal Obstruction, Nasal Trauma, Nose Pain, Post Nasal Drip, Sinus Pain, Sinus Pressure, Bleeding Gums, Change in Voice, Dental Pain, Dry Mouth, Dysphagia, Halitosis, Hoarsness, Lip Swelling, Mouth Lesions, Mouth Pain, Odynophagia, Sore Throat, Throat Swelling, Tongue Swelling, Facial Pain, Neck Pain, Neck Mass, Other - Breasts Breasts: absent: As Per HPI, Change in Shape, Mass, Pain, Nipple Discharge, Nipple Inversion, Skin Changes, Swelling, Other - Cardiovascular Cardiovascular: As Per HPI - Respiratory Respiratory: As Per HPI, Dyspnea - Gastrointestinal Gastrointestinal: absent: As Per HPI, Abdominal Pain, Belching, Bloating, Change in Bowel Habits, Change in Stool Character, Coffee Ground Emesis, Constipation, Cramping, Diarrhea, Dyspepsia, Dysphagia, Early Satiety, Excessive Flatus, Fecal Incontinence, Heartburn, Hematemesis, Hematochezia, Loose Stools, Melena, Nausea, Odynophagia, Temesmus, Vomiting, Other - Genitourinary Genitourinary: absent: As Per HPI, Change in Urinary Stream, Difficulty Urinating, Dysuria, Flank Pain, Hematuria, Pyuria, Nocturia, Urinary Incontinence, Urinary Frequency, Urinary Hesitance, Urinary Urgency, Voiding Freq/Small Amts, Freq UTI, Hx Renal/Bladder Calculi, Hx /Renal Surgery, Bladder Distension, Other - Reproductive: Female Reproductive:Female: absent: As Per HPI, Amenorrhea, Amenorrhea/ Control, Currently Menstual, Cycle <21 Days, Cycle >35 Days, Cycle Variable, Menses 1-7 Days, Menses >/= 8 Days, Menses Variable, Cycle > 4 Weeks Between, No Menses for 6 Months, Heavy Menses, Light Menses, Normal Menses, Spotting Between Cycles , S/P Hysterectomy, Menopausal, Post Menopausal, Premenarche, Abnormal Vaginal Bleeding, Dysmenorrhea, Dyspareunia, Genital Lesions, Genital Pruritis, Pelvic Pain, Prolapse Symptoms, Sexual Dysfunction, Vaginal Discharge, Vaginal Dryness , Vaginal Odor, Vaginal Pruritis, Other - Menstruation Menstruation: absent: As Per HPI, Amenorrhea, Amenorrhea/ Control, Currently Menstual, Cycle <21 Days, Cycle >35 Days, Cycle Variable, Menses 1-7 Days, Menses >/= 8 Days, Menses Variable, Cycle > 4 Weeks Between, No Menses for 6 Months, Heavy Menses, Light Menses, Normal Menses, Spotting Between Cycles , S/P Hysterectomy, Menopausal, Post Menopausal, Premenarche, Abnormal Vaginal Bleeding, Dysmenorrhea, Other - Musculoskeletal Musculoskeletal: absent: As Per HPI, Abnormal Gait, Arthralgias, Atrophy, Back Pain, Deformity, Joint Swelling, Limited Range of Motion, Loss of Height, Muscle Cramps, Muscle Weakness, Myalgias, Neck Pain, Numbness, Radiating Pain into Limb, Stiffness, Tingling, Other - Integumentary Integumentary: absent: As Per HPI, Acne, Alopecia, Bleeding Lesions, Change in Hair, Change in Nails, Change in Pigmentation, Changing Lesions, Dry Skin, Erythema, Furuncle, Hirsutism, Lesions, New Lesions, Non-Healing Lesions, Photosensitivity, Pruritus, Rash, Skin Pain, Skin Ulcer, Sores, Striae, Swelling , Unusual Bruising, Wounds, Jaundice, Other - Neurological Neurological: absent: As Per HPI, Abnormal Gait, Abnormal Hearing, Abnormal Movements, Abnormal Speech, Behavioral Changes, Burning Sensations, Confusion, Convulsions, Disequilibrium, Dizziness, Numbness, Focal Weakness, Frequent Falls , Headaches, Lack of Coordination, Loss of Vision, Memory Loss, Paresthesias, Radicular Pain, Restless Legs, Sensory Deficit, Syncope, Tingling, Tremor, Vertigo, Weakness, Other Visual Disturbances, Other - Psychiatric Psychiatric: As Per HPI - Endocrine Endocrine: absent: As Per HPI, Change in Body Appearance, Change in Libido, Cold Intolorance, Deepening of Voice, Excessive Sweating, Fatigue, Flushing, Heat Intolorance, Increase in Ring/Shoe/Hat Size, Palpitations, Polydipsia, Polyphagia, Polyuria, Other - Hematologic/Lymphatic Hematologic: absent: As Per HPI, Easy Bleeding, Easy Bruising, Lymphadenopathy, Other Past Patient History - Infectious Disease Hx of Infectious Diseases: None - Tetanus Immunizations Tetanus Immunization: Unknown - Past Medical History & Family History Past Medical History?: Yes - Past Social History Smoking Status: Never Smoked - CARDIAC Hx Atrial Fibrillation: No Hx Cardia Arrhythmia: No Hx Congestive Heart Failure: No Hx Hypercholesterolemia: Yes Hx Hypertension: Yes Hx Mitral Valve Prolapse: No Hx Pacemaker: Yes Hx Peripheral Edema: No - PULMONARY Hx Asthma: Yes Hx Bronchitis: No Hx Chronic Obstructive Pulmonary Disease (COPD): No Hx Emphysema: No Hx Pneumonia: No Hx Pulmonary Embolism: No Hx Sleep Apnea: No - NEUROLOGICAL Hx Alzheimer's Disease: No Hx Dementia: No Hx Migraine: No Hx Multiple Sclerosis: No Hx Parkinson's Disease: No Hx Seizures: Yes Hx Transient Ischemic Attacks (TIA): No - HEENT Hx HEENT Problems: No Hx Blind: No Hx Cataracts: No 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) Hx Difficulty Chewing: No Hx Epistaxis: No Hx Glaucoma: No Hx Macular Degeneration: No Other/Comment: Poor vision to bilateral eyes R>L - RENAL Hx Chronic Kidney Disease: Yes - ENDOCRINE/METABOLIC Hx Hyperthyroidism: No Hx Hypothyroidism: Yes - HEMATOLOGICAL/ONCOLOGICAL Hx Anemia: Yes Hx Human Immunodeficiency Virus (HIV): No Hx Sickle Cell Disease: No - INTEGUMENTARY Hx Dermatological Problems: No Hx Basil Cell: No Hx Fontenot: No Hx Cellulitis: No Hx Eczema: No Hx Melanoma: No Hx Psoriasis: No Hx Squamous Cell: No - MUSCULOSKELETAL/RHEUMATOLOGICAL Hx Arthritis: No Hx Falls: Yes Hx Fractures: No Hx Osteoporosis: No Hx Rheumatoid Arthritis: Yes - GASTROINTESTINAL Hx Crohn's Disease: No Hx Diverticulitis: No Hx Gall Bladder Disease: No Hx Gastritis: No Hx Pancreatitis: No - GENITOURINARY/GYNECOLOGICAL Hx Sexually Transmitted Disorders: No - PSYCHIATRIC Hx Anxiety: Yes Hx Bipolar Disorder: No Hx Depression: Yes Hx Paranoia: No Hx Post Traumatic Stress Disorder: No Hx Schizophrenia: No Hx Substance Use: No - SURGICAL HISTORY Hx Appendectomy: No Hx Carotid Endarterectomy: No Hx Cholecystectomy: No Hx Coronary Artery Bypass Graft: No Hx Coronary Stent: No Hx Tonsillectomy: Yes Other/Comment: Partial Hysterectomy. 7 open brain surgeries - ANESTHESIA Hx Anesthesia: Yes Hx Anesthesia Reactions: No Hx Malignant Hyperthermia: No Meds Allergies/Adverse Reactions: Allergies Allergy/AdvReac Type Severity Reaction Status Date / Time seasonal Allergy CONGESTION Uncoded 09/28/15 13:52 - Medications Medications: Current Medications Alprazolam (Xanax) 2 mg PO TID PRN PRN Reason: Anxiety Last Admin: 01/22/17 20:27 Dose: 2 mg Atorvastatin Calcium (Lipitor) 20 mg PO DAILY [facility] Last Admin: 01/22/17 09:19 Dose: 20 mg Carbamazepine (Tegretol) 200 mg PO BID [facility] Last Admin: 01/22/17 18:11 Dose: 200 mg Enoxaparin Sodium (Lovenox) 50 mg SC Q12 [facility] PRN Reason: Protocol Last Admin: 01/22/17 18:12 Dose: 50 mg Home Med (Dulaglutide [Trulicity]) 1.5 mg INJ QWK [facility] Home Med (Linaclotide [Linzess]) 145 mcg PO DAILY [facility] Dextrose/Lactated Ringer's (Dextrose 5%/Lactated Ringer's) 1,000 mls @ 40 mls/ hr IV .Q24H [facility] Stop: 01/23/17 16:36 Last Admin: 01/22/17 18:13 Dose: 40 mls/hr Levetiracetam (Keppra) 1,000 mg PO TID [facility] Last Admin: 01/22/17 18:08 Dose: 1,000 mg Levothyroxine Sodium (Synthroid) 100 mcg PO DAILY@0630 [facility] Last Admin: 01/22/17 06:08 Dose: 100 mcg Megestrol Acetate (Megace) 400 mg PO DAILY [facility] Last Admin: 01/22/17 14:53 Dose: 400 mg Midodrine (Proamatine) 5 mg PO BID [facility] Last Admin: 01/22/17 18:11 Dose: 5 mg Ondansetron HCl (Zofran Inj) 4 mg IVP Q8 PRN PRN Reason: Nausea/Vomiting Last Admin: 01/22/17 18:05 Dose: 4 mg Oxycodone HCl (Oxycontin Extended Release Tab) 10 mg PO BID [facility] Stop: 01/25/17 09:01 Last Admin: 01/22/17 18:09 Dose: 10 mg Oxycodone/Acetaminophen (Percocet 5/325 Mg Tab) 1 tab PO Q4 PRN PRN Reason: Pain, moderate (4-7) Stop: 01/24/17 21:26 Last Admin: 01/21/17 21:28 Dose: 1 tab Oxycodone/Acetaminophen (Percocet 5/325 Mg Tab) 2 tab PO Q4 PRN PRN Reason: Pain, severe (8-10) Stop: 01/25/17 00:33 Last Admin: 01/22/17 05:19 Dose: 2 tab Pregabalin (Lyrica) 75 mg PO TID [facility] Last Admin: 01/22/17 18:09 Dose: 75 mg Zolpidem Tartrate (Ambien) 5 mg PO HS [facility] Last Admin: 01/22/17 00:49 Dose: 5 mg Physical Exam - Constitutional Appears: Chronically Ill - Eye Exam Eye Exam: EOMI Pupil Exam: PERRL - ENT Exam ENT Exam: Mucous Membranes Moist - Neck Exam Neck exam: Positive for: Normal Inspection - Respiratory Exam Respiratory Exam: Clear to Auscultation Bilateral - Cardiovascular Exam Cardiovascular Exam: Tachycardia, +S1, +S2 - GI/Abdominal Exam GI & Abdominal Exam: Diminished Bowel Sounds, Soft. absent: Tenderness - Rectal Exam Rectal Exam: Deferred - Exam Exam: NORMAL INSPECTION - Back Exam Back exam: absent: CVA tenderness (L), CVA tenderness (R) - Neurological Exam Neurological exam: Alert, CN II-XII Intact - Psychiatric Exam Psychiatric exam: Depressed - Skin Skin Exam: Dry Results - Vital Signs Recent Vital Signs: Last Vital Signs Temp 98.2 F 01/22/17 19:06 Pulse 78 01/22/17 19:06 Resp 20 01/22/17 19:06 BP 124/81 01/22/17 19:06 Pulse Ox 100 01/22/17 19:06 - Labs Result Diagrams: 01/21/17 15:39 01/21/17 16:59 Labs: Laboratory Results - last 24 hr 01/22/17 01/22/17 01/22/17 05:25 05:50 11:09 POC Glucose (mg/dL) 81 80 Troponin I < 0.0120 01/22/17 01/22/17 01/22/17 14:32 14:54 16:00 POC Glucose (mg/dL) 88 86 Troponin I < 0.0120 Assessment & Plan (1) Chest pain Status: Acute (2) Dyspnea Status: Acute (3) Neck pain Status: Acute (4) Craniotomy Status: Active (5) Depressive disorder Status: Active (6) Headache Status: Active - Assessment and Plan (Free Text) Assessment: no obvious signs of infection will monitor temp curve may need heme onc follow up
[2017-01-22] MEDS ORDERED: Enoxaparin 60 mg Syringe SC SCH (21:00)
--- NOTE | 2017-01-22 22:14 | CP.PCM.CON ---
History of Present Illness - History of Present Illness History of Present Illness: Patient seen and examined; chart reviewed, full consult to be dictated. Cont AC for now. Obtain ECHO and VD of Lower Ext. Will F/u [phone] cell Past Patient History - Infectious Disease Hx of Infectious Diseases: None - Tetanus Immunizations Tetanus Immunization: Unknown - Past Medical History & Family History Past Medical History?: Yes - Past Social History Smoking Status: Never Smoked - CARDIAC Hx Atrial Fibrillation: No Hx Cardia Arrhythmia: No Hx Congestive Heart Failure: No Hx Hypercholesterolemia: Yes Hx Hypertension: Yes Hx Mitral Valve Prolapse: No Hx Pacemaker: Yes Hx Peripheral Edema: No - PULMONARY Hx Asthma: Yes Hx Bronchitis: No Hx Chronic Obstructive Pulmonary Disease (COPD): No Hx Emphysema: No Hx Pneumonia: No Hx Pulmonary Embolism: No Hx Sleep Apnea: No - NEUROLOGICAL Hx Alzheimer's Disease: No Hx Dementia: No Hx Migraine: No Hx Multiple Sclerosis: No Hx Parkinson's Disease: No Hx Seizures: Yes Hx Transient Ischemic Attacks (TIA): No - HEENT Hx HEENT Problems: No Hx Blind: No Hx Cataracts: No 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) Hx Difficulty Chewing: No Hx Epistaxis: No Hx Glaucoma: No Hx Macular Degeneration: No Other/Comment: Poor vision to bilateral eyes R>L - RENAL Hx Chronic Kidney Disease: Yes - ENDOCRINE/METABOLIC Hx Hyperthyroidism: No Hx Hypothyroidism: Yes - HEMATOLOGICAL/ONCOLOGICAL Hx Anemia: Yes Hx Human Immunodeficiency Virus (HIV): No Hx Sickle Cell Disease: No - INTEGUMENTARY Hx Dermatological Problems: No Hx Basil Cell: No Hx Fontenot: No Hx Cellulitis: No Hx Eczema: No Hx Melanoma: No Hx Psoriasis: No Hx Squamous Cell: No - MUSCULOSKELETAL/RHEUMATOLOGICAL Hx Arthritis: No Hx Falls: Yes Hx Fractures: No Hx Osteoporosis: No Hx Rheumatoid Arthritis: Yes - GASTROINTESTINAL Hx Crohn's Disease: No Hx Diverticulitis: No Hx Gall Bladder Disease: No Hx Gastritis: No Hx Pancreatitis: No - GENITOURINARY/GYNECOLOGICAL Hx Sexually Transmitted Disorders: No - PSYCHIATRIC Hx Anxiety: Yes Hx Bipolar Disorder: No Hx Depression: Yes Hx Paranoia: No Hx Post Traumatic Stress Disorder: No Hx Schizophrenia: No Hx Substance Use: No - SURGICAL HISTORY Hx Appendectomy: No Hx Carotid Endarterectomy: No Hx Cholecystectomy: No Hx Coronary Artery Bypass Graft: No Hx Coronary Stent: No Hx Tonsillectomy: Yes Other/Comment: Partial Hysterectomy. 7 open brain surgeries - ANESTHESIA Hx Anesthesia: Yes Hx Anesthesia Reactions: No Hx Malignant Hyperthermia: No Meds Allergies/Adverse Reactions: Allergies Allergy/AdvReac Type Severity Reaction Status Date / Time seasonal Allergy CONGESTION Uncoded 09/28/15 13:52 - Medications Medications: Current Medications Alprazolam (Xanax) 2 mg PO TID PRN PRN Reason: Anxiety Last Admin: 01/22/17 20:27 Dose: 2 mg Atorvastatin Calcium (Lipitor) 20 mg PO DAILY [facility] Last Admin: 01/22/17 09:19 Dose: 20 mg Carbamazepine (Tegretol) 200 mg PO BID [facility] Last Admin: 01/22/17 18:11 Dose: 200 mg Enoxaparin Sodium (Lovenox) 50 mg SC Q12 [facility] PRN Reason: Protocol Last Admin: 01/22/17 21:22 Dose: Not Given Home Med (Dulaglutide [Trulicity]) 1.5 mg INJ QWK [facility] Home Med (Linaclotide [Linzess]) 145 mcg PO DAILY [facility] Dextrose/Lactated Ringer's (Dextrose 5%/Lactated Ringer's) 1,000 mls @ 40 mls/ hr IV .Q24H [facility] Stop: 01/23/17 16:36 Last Admin: 01/22/17 18:13 Dose: 40 mls/hr Levetiracetam (Keppra) 1,000 mg PO TID [facility] Last Admin: 01/22/17 18:08 Dose: 1,000 mg Levothyroxine Sodium (Synthroid) 100 mcg PO DAILY@0630 [facility] Last Admin: 01/22/17 06:08 Dose: 100 mcg Megestrol Acetate (Megace) 400 mg PO DAILY [facility] Last Admin: 01/22/17 14:53 Dose: 400 mg Midodrine (Proamatine) 5 mg PO BID [facility] Last Admin: 01/22/17 18:11 Dose: 5 mg Ondansetron HCl (Zofran Inj) 4 mg IVP Q8 PRN PRN Reason: Nausea/Vomiting Last Admin: 01/22/17 18:05 Dose: 4 mg Oxycodone HCl (Oxycontin Extended Release Tab) 10 mg PO BID [facility] Stop: 01/25/17 09:01 Last Admin: 01/22/17 18:09 Dose: 10 mg Oxycodone/Acetaminophen (Percocet 5/325 Mg Tab) 1 tab PO Q4 PRN PRN Reason: Pain, moderate (4-7) Stop: 01/24/17 21:26 Last Admin: 01/21/17 21:28 Dose: 1 tab Oxycodone/Acetaminophen (Percocet 5/325 Mg Tab) 2 tab PO Q4 PRN PRN Reason: Pain, severe (8-10) Stop: 01/25/17 00:33 Last Admin: 01/22/17 05:19 Dose: 2 tab Pregabalin (Lyrica) 75 mg PO TID [facility] Last Admin: 01/22/17 18:09 Dose: 75 mg Zolpidem Tartrate (Ambien) 5 mg PO [facility] Last Admin: 01/22/17 00:49 Dose: 5 mg Results - Vital Signs Recent Vital Signs: Last Vital Signs Temp 98.2 F 01/22/17 19:06 Pulse 78 01/22/17 19:06 Resp 20 01/22/17 19:06 BP 124/81 01/22/17 19:06 Pulse Ox 100 01/22/17 19:06 - Labs Result Diagrams: 01/21/17 15:39 01/21/17 16:59 Labs: Laboratory Results - last 24 hr 01/22/17 01/22/17 01/22/17 05:25 05:50 11:09 POC Glucose (mg/dL) 81 80 Troponin I < 0.0120 01/22/17 01/22/17 01/22/17 14:32 14:54 16:00 POC Glucose (mg/dL) 88 86 Troponin I < 0.0120
[2017-01-23] MEDS: Oxycodone/Acetaminophen 5/325 mg Tab PO PRN ×2 (01:51→20:14)
[2017-01-23] MEDS: Levothyroxine 100 MCG TAB PO SCH (06:13)
[2017-01-23] MEDS: Enoxaparin 60 mg Syringe SC SCH ×2 (08:53→21:49)
[2017-01-23] MEDS: Megestrol Acetate 40 mg/ml Cup PO SCH (08:56)
[2017-01-23] MEDS: oxyCODONE 10 mg ER Tab (oxyCONTIN) PO SCH ×2 (09:20→16:36)
--- NOTE | 2017-01-23 09:23 | CP.PCM.PN ---
Subjective - Date & Time of Evaluation Date of Evaluation: 01/22/17 Time of Evaluation: 09:40 - Subjective Subjective: Patient continues to have vague chest wall Has no SOB Still no VQ will do CT scan chest Objective - Vital Signs/Intake and Output Vital Signs (last 24 hours): Temp Pulse Resp BP Pulse Ox 98.1 F 80 20 98/68 L 99 01/23/17 08:42 01/23/17 08:42 01/23/17 08:42 01/23/17 08:42 01/23/17 08:42 Intake and Output: 01/23/17 01/23/17 06:59 18:59 Intake Total 480 Balance 480 - Medications Medications: Current Medications Alprazolam (Xanax) 2 mg PO TID PRN PRN Reason: Anxiety Last Admin: 01/22/17 20:27 Dose: 2 mg Atorvastatin Calcium (Lipitor) 20 mg PO DAILY [facility] Last Admin: 01/23/17 08:53 Dose: 20 mg Carbamazepine (Tegretol) 200 mg PO BID [facility] Last Admin: 01/23/17 08:57 Dose: 200 mg Enoxaparin Sodium (Lovenox) 50 mg SC Q12 [facility] PRN Reason: Protocol Last Admin: 01/23/17 08:53 Dose: 50 mg Home Med (Dulaglutide [Trulicity]) 1.5 mg INJ QWK [facility] Home Med (Linaclotide [Linzess]) 145 mcg PO DAILY [facility] Dextrose/Lactated Ringer's (Dextrose 5%/Lactated Ringer's) 1,000 mls @ 40 mls/ hr IV .Q24H [facility] Stop: 01/23/17 16:36 Last Admin: 01/22/17 18:13 Dose: 40 mls/hr Levetiracetam (Keppra) 1,000 mg PO TID [facility] Last Admin: 01/23/17 08:52 Dose: 1,000 mg Levothyroxine Sodium (Synthroid) 100 mcg PO DAILY@0630 [facility] Last Admin: 01/23/17 06:13 Dose: 100 mcg Megestrol Acetate (Megace) 400 mg PO DAILY [facility] Last Admin: 01/23/17 08:56 Dose: 400 mg Midodrine (Proamatine) 5 mg PO BID [facility] Last Admin: 01/23/17 08:57 Dose: 5 mg Ondansetron HCl (Zofran Inj) 4 mg IVP Q8 PRN PRN Reason: Nausea/Vomiting Last Admin: 01/22/17 18:05 Dose: 4 mg Oxycodone HCl (Oxycontin Extended Release Tab) 10 mg PO BID [facility] Stop: 01/25/17 09:01 Last Admin: 01/22/17 18:09 Dose: 10 mg Oxycodone/Acetaminophen (Percocet 5/325 Mg Tab) 1 tab PO Q4 PRN PRN Reason: Pain, moderate (4-7) Stop: 01/24/17 21:26 Last Admin: 01/23/17 01:51 Dose: 1 tab Oxycodone/Acetaminophen (Percocet 5/325 Mg Tab) 2 tab PO Q4 PRN PRN Reason: Pain, severe (8-10) Stop: 01/25/17 00:33 Last Admin: 01/22/17 05:19 Dose: 2 tab Pregabalin (Lyrica) 75 mg PO TID [facility] Last Admin: 01/22/17 18:09 Dose: 75 mg Zolpidem Tartrate (Ambien) 5 mg PO HS [facility] Last Admin: 01/22/17 23:23 Dose: 5 mg - Head Exam Head Exam: NORMAL INSPECTION - Eye Exam Eye Exam: Normal appearance - ENT Exam ENT Exam: Mucous Membranes Moist - Respiratory Exam Respiratory Exam: Clear to Ausculation Bilateral - Cardiovascular Exam Cardiovascular Exam: REGULAR RHYTHM - GI/Abdominal Exam GI & Abdominal Exam: Normal Bowel Sounds Assessment and Plan (1) Chest pain Status: Acute (2) Hyperlipemia Status: Acute (3) Hypothyroidism Status: Acute (4) Intractable headache Status: Acute (5) Meningioma Status: Acute - Assessment and Plan (Free Text) Plan: will do CT scan if VQ is not possible cont tx cont meds.
--- NOTE | 2017-01-23 11:33 | CP.PCM.PCO ---
Assessment and Plan - Assessment and Plan (Free Text) Assessment: 51 y/o female with PMHx Chronig malignant meningioma, headache, seizure disorder admitted chest pain CT chest : acute vs. chronic LL lobe thromboembolism Above discussed with ok to start anticoagulation as per Lovenox 50 mg sc q12 started Pulmonary consult with , recommendation to start Eliquis upon d/c Hematology consult with above discussed with
--- NOTE | 2017-01-23 11:35 | CARD ---
APPROVED REPORT EXAM: Two-dimensional and M-mode echocardiogram with Doppler and color Doppler. Other Information Quality : GoodRhythm : NSR INDICATION Pulmonary Embolism Chest Pain 2D DIMENSIONS IVSd0.80 (0.7-1.1cm)LVDd4.09 (3.9-5.9cm) LVOT Diameter2.02 (1.8-2.4cm)PWd0.76 (0.7-1.1cm) IVSs0.90 (0.8-1.2cm)LVDs2.77 (2.5-4.0cm) FS (%) 32.1 %PWs1.15 (0.8-1.2cm) M-Mode DIMENSIONS Left Atrium (MM)2.51 (2.5-4.0cm)IVSd1.04 (0.7-1.1cm) Aortic Root2.87 (2.2-3.7cm)LVDd4.17 (4.0-5.6cm) Aortic Cusp Exc.1.90 (1.5-2.0cm)PWd0.77 (0.7-1.1cm) IVSs1.28 cmFS (%) 31 % LVDs2.87 (2.0-3.8cm)PWs1.24 cm Mitral Valve MV E Qhjpogwj26.5cm/sMV DECEL [id number] A Fqztoukj22.1cm/s MV HXY95ciA/A ratio1.2MVA (PHT)3.70cm2 TDI E/Lateral E'0.0E/Medial E'0.0 Pulmonary Valve PV Peak Jbiwplvl29.9cm/s Tricuspid Valve TR Peak Mtewgfhc784hk/sRAP TANTWLEH30ovYyPY Peak Gr.13mmHg [id number] LEFT VENTRICLE The left ventricle is normal size. There is normal left ventricular wall thickness. The left ventricular function is normal. The left ventricular ejection fraction is - 60%. There is normal LV segmental wall motion. The left ventricular diastolic function is normal. No left ventricle thrombus noted on this study. There is no ventricular septal defect visualized. There is no left ventricular aneurysm. There is no mass noted in the left ventricle. RIGHT VENTRICLE The right ventricle is normal size. There is normal right ventricular wall thickness. The right ventricular systolic function is normal. A pacemaker lead could be seen in the RV and RA. ATRIA The left atrium size is normal. There is no thrombus suspected in the left atrium. The right atrium size is normal. The interatrial septum is intact with no evidence for an atrial septal defect. AORTIC VALVE The aortic valve is normal in structure and function. No aortic regurgitation is present. There is no aortic valvular stenosis. MITRAL VALVE The mitral valve is normal in structure and function. There is no evidence of mitral valve prolapse. There is no mitral valve stenosis. There is no mitral valve regurgitation noted. TRICUSPID VALVE The tricuspid valve is normal in structure and function. There is trace tricuspid regurgitation. Right ventricular systolic pressure is estimated at 23 mmHg. There is no tricuspid valve prolapse or vegetation. There is no tricuspid valve stenosis. PULMONIC VALVE The pulmonary valve is normal in structure and function. There is no pulmonic valvular regurgitation. GREAT VESSELS The aortic root is normal in size. The IVC is normal in size and collapses >50% with inspiration. PERICARDIAL EFFUSION There is a tiny anterior echo free space. There is no pleural effusion. <Conclusion> The left ventricle is normal in size and wall thickness. The left ventricular function is normal. The left ventricular ejection fraction is - 60%. The left atrium, right ventricle and right atrium are normal in size. The mitral, aortic and tricuspid valves are normal. There is trace tricuspid regurgitation.
--- NOTE | 2017-01-23 13:13 | CP.PCM.PN ---
Subjective - Date & Time of Evaluation Date of Evaluation: 01/23/17 Time of Evaluation: 10:00 - Subjective Subjective: pt seen and examined at bedside, no acute events overnight. Lying in bed comfortably, NAD. Denies new complaints. Objective - Vital Signs/Intake and Output Vital Signs (last 24 hours): Temp Pulse Resp BP Pulse Ox 98.4 F 69 20 114/79 96 01/23/17 12:27 01/23/17 12:27 01/23/17 12:27 01/23/17 12:27 01/23/17 12:27 Intake and Output: 01/23/17 01/23/17 06:59 18:59 Intake Total 480 Balance 480 - Medications Medications: Current Medications Alprazolam (Xanax) 2 mg PO TID PRN PRN Reason: Anxiety Last Admin: 01/22/17 20:27 Dose: 2 mg Atorvastatin Calcium (Lipitor) 20 mg PO DAILY [facility] Last Admin: 01/23/17 08:53 Dose: 20 mg Carbamazepine (Tegretol) 200 mg PO BID [facility] Last Admin: 01/23/17 08:57 Dose: 200 mg Enoxaparin Sodium (Lovenox) 50 mg SC Q12 [facility] PRN Reason: Protocol Last Admin: 01/23/17 08:53 Dose: 50 mg Home Med (Dulaglutide [Trulicity]) 1.5 mg INJ QWK [facility] Home Med (Linaclotide [Linzess]) 145 mcg PO DAILY [facility] Dextrose/Lactated Ringer's (Dextrose 5%/Lactated Ringer's) 1,000 mls @ 40 mls/ hr IV .Q24H [facility] Stop: 01/23/17 16:36 Last Admin: 01/22/17 18:13 Dose: 40 mls/hr Levetiracetam (Keppra) 1,000 mg PO TID [facility] Last Admin: 01/23/17 13:04 Dose: 1,000 mg Levothyroxine Sodium (Synthroid) 100 mcg PO DAILY@0630 [facility] Last Admin: 01/23/17 06:13 Dose: 100 mcg Megestrol Acetate (Megace) 400 mg PO DAILY [facility] Last Admin: 01/23/17 08:56 Dose: 400 mg Midodrine (Proamatine) 5 mg PO BID [facility] Last Admin: 01/23/17 08:57 Dose: 5 mg Ondansetron HCl (Zofran Inj) 4 mg IVP Q8 PRN PRN Reason: Nausea/Vomiting Last Admin: 01/22/17 18:05 Dose: 4 mg Oxycodone HCl (Oxycontin Extended Release Tab) 10 mg PO BID [facility] Stop: 01/25/17 09:01 Last Admin: 01/23/17 09:20 Dose: 10 mg Oxycodone/Acetaminophen (Percocet 5/325 Mg Tab) 1 tab PO Q4 PRN PRN Reason: Pain, moderate (4-7) Stop: 01/24/17 21:26 Last Admin: 01/23/17 01:51 Dose: 1 tab Oxycodone/Acetaminophen (Percocet 5/325 Mg Tab) 2 tab PO Q4 PRN PRN Reason: Pain, severe (8-10) Stop: 01/25/17 00:33 Last Admin: 01/22/17 05:19 Dose: 2 tab Pregabalin (Lyrica) 75 mg PO TID [facility] Last Admin: 01/23/17 13:04 Dose: 75 mg Zolpidem Tartrate (Ambien) 5 mg PO HS [facility] Last Admin: 01/22/17 23:23 Dose: 5 mg - Constitutional Appears: Non-toxic, No Acute Distress - Head Exam Head Exam: ATRAUMATIC, NORMOCEPHALIC - Eye Exam Eye Exam: EOMI Pupil Exam: PERRL - Respiratory Exam Respiratory Exam: Clear to Ausculation Bilateral, NORMAL BREATHING PATTERN. absent: Chest Wall Tenderness, Rales, Rhonchi, Wheezes, Respiratory Distress - Cardiovascular Exam Cardiovascular Exam: REGULAR RHYTHM, RRR, +S1, +S2. absent: JVD, Rubs - GI/Abdominal Exam GI & Abdominal Exam: Soft, Normal Bowel Sounds - Neurological Exam Neurological Exam: Alert, Awake, Oriented x3 - Psychiatric Exam Psychiatric exam: Normal Affect, Normal Mood
--- NOTE | 2017-01-23 13:16 | US ---
PROCEDURE: Bilateral lower extremity venous duplex Doppler. HISTORY: r/o DVT COMPARISON: None available. TECHNIQUE: Bilateral common femoral, superficial femoral, popliteal and posterior tibial veins were evaluated. Flow was assessed with color Doppler, compressibility, assessment of phasic flow and augmentation response. FINDINGS: COMMON FEMORAL VEIN: Right CFV: Unremarkable. Left CFV: Unremarkable. SUPERFICIAL FEMORAL VEIN: Right SFV: Unremarkable. Left SFV: Unremarkable. POPLITEAL VEIN: Right Popliteal: Unremarkable. Left Popliteal: Unremarkable. POSTERIOR TIBIAL VEIN: Right PTV: Unremarkable. Left PTV: Unremarkable. OTHER FINDINGS: None. IMPRESSION: No evidence of deep venous thrombosis in the right or left lower extremity. .
[2017-01-23 19:12] VITALS: O2SAT 100
--- NOTE | 2017-01-23 22:00 | CP.PCM.PN ---
Subjective - Subjective Subjective: CONSTANCE; 2/2 PE/DVT; Probable Hypercoagulable state from Malignant Meningioma. PE: Vss Afebrile. Head Neg Adeno Pos Lakia. Heart RRR, Ns1s2, neg m. lungs: Clear to A & P Abdo s, nt, pos bs ext: no c,c,e Neuro: [facility] Labs (See Below) X-ray See Below a/p ARF 2/2 Acute Pulmonary Embolism Malignant Meningioma. Cont MV maintain O2 Sat > 90%. Lower FiO2 to lowest possbile for and O2 Sat > 90% Change AC to oral AC. PUD and DVT Px Signing out of case. F/u with me at my office at [address] [phone] is the main office number. Objective - Vital Signs/Intake and Output Vital Signs (last 24 hours): Temp Pulse Resp BP Pulse Ox 98.0 F 75 20 115/79 100 01/23/17 19:12 01/23/17 19:12 01/23/17 19:12 01/23/17 19:12 01/23/17 19:12 - Medications Medications: Current Medications Alprazolam (Xanax) 2 mg PO TID PRN PRN Reason: Anxiety Last Admin: 01/23/17 14:44 Dose: 2 mg Atorvastatin Calcium (Lipitor) 20 mg PO DAILY [facility] Last Admin: 01/23/17 08:53 Dose: 20 mg Carbamazepine (Tegretol) 200 mg PO BID [facility] Last Admin: 01/23/17 16:35 Dose: 200 mg Enoxaparin Sodium (Lovenox) 50 mg SC Q12 [facility] PRN Reason: Protocol Last Admin: 01/23/17 21:49 Dose: 50 mg Home Med (Dulaglutide [Trulicity]) 1.5 mg INJ QWK [facility] Home Med (Linaclotide [Linzess]) 145 mcg PO DAILY [facility] Levetiracetam (Keppra) 1,000 mg PO TID [facility] Last Admin: 01/23/17 16:34 Dose: 1,000 mg Levothyroxine Sodium (Synthroid) 100 mcg PO DAILY@0630 [facility] Last Admin: 01/23/17 06:13 Dose: 100 mcg Megestrol Acetate (Megace) 400 mg PO DAILY [facility] Last Admin: 01/23/17 08:56 Dose: 400 mg Midodrine (Proamatine) 5 mg PO BID [facility] Last Admin: 01/23/17 16:34 Dose: 5 mg Ondansetron HCl (Zofran Inj) 4 mg IVP Q8 PRN PRN Reason: Nausea/Vomiting Last Admin: 01/22/17 18:05 Dose: 4 mg Oxycodone HCl (Oxycontin Extended Release Tab) 10 mg PO BID [facility] Stop: 01/25/17 09:01 Last Admin: 01/23/17 16:36 Dose: Not Given Oxycodone/Acetaminophen (Percocet 5/325 Mg Tab) 1 tab PO Q4 PRN PRN Reason: Pain, moderate (4-7) Stop: 01/24/17 21:26 Last Admin: 01/23/17 20:14 Dose: 1 tab Oxycodone/Acetaminophen (Percocet 5/325 Mg Tab) 2 tab PO Q4 PRN PRN Reason: Pain, severe (8-10) Stop: 01/25/17 00:33 Last Admin: 01/22/17 05:19 Dose: 2 tab Pregabalin (Lyrica) 75 mg PO TID [facility] Last Admin: 01/23/17 16:33 Dose: 75 mg Zolpidem Tartrate (Ambien) 5 mg PO [facility] Last Admin: 01/22/17 23:23 Dose: 5 mg
[2017-01-24] MEDS: Levothyroxine 100 MCG TAB PO SCH (06:27)
[2017-01-24 08:36] VITALS: BP 110/74; PULSE 63; RESP 20; TEMP 97.7
[2017-01-24] MEDS: Enoxaparin 60 mg Syringe SC SCH (09:25)
[2017-01-24] MEDS: Megestrol Acetate 40 mg/ml Cup PO SCH (09:28)
[2017-01-24] MEDS: oxyCODONE 10 mg ER Tab (oxyCONTIN) PO SCH (09:33)
--- NOTE | 2017-01-24 10:01 | CP.PCM.CON ---
History of Present Illness - History of Present Illness History of Present Illness: This is a 51 yrs old female wo is well known to me. She was diagnosed to have a malignant meningioma in the frontal area. She had surgery followed by RT,and did well for a while.But since then she has had several recurrences with multiple surgeries for the same. Last procedure was on 01/16/17, when she had radiofrequency ablation done and was discharged. She came back to the hospital on the with a c/o shortness of breath and chest pain.CT scan showed a PE, . There was no DVT and echocardiogram was negative as well. She has been started on lovenox, and will be changed to eliquis in a day or two. She is also on temodar which she will start on her returnng home Past Patient History - Infectious Disease Hx of Infectious Diseases: None - Tetanus Immunizations Tetanus Immunization: Unknown - Past Medical History & Family History Past Medical History?: Yes - Past Social History Alcohol: None Drugs: Denies - CARDIAC Hx Atrial Fibrillation: No Hx Cardia Arrhythmia: No Hx Congestive Heart Failure: No Hx Hypercholesterolemia: Yes Hx Hypertension: Yes Hx Mitral Valve Prolapse: No Hx Pacemaker: Yes Hx Peripheral Edema: No - PULMONARY Hx Asthma: Yes Hx Bronchitis: No Hx Chronic Obstructive Pulmonary Disease (COPD): No Hx Emphysema: No Hx Pneumonia: No Hx Pulmonary Embolism: No Hx Sleep Apnea: No - NEUROLOGICAL Hx Alzheimer's Disease: No Hx Dementia: No Hx Migraine: No Hx Multiple Sclerosis: No Hx Parkinson's Disease: No Hx Seizures: Yes Hx Transient Ischemic Attacks (TIA): No - HEENT Hx HEENT Problems: No Hx Blind: No Hx Cataracts: No 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) Hx Difficulty Chewing: No Hx Epistaxis: No Hx Glaucoma: No Hx Macular Degeneration: No Other/Comment: Poor vision to bilateral eyes R>L - RENAL Hx Chronic Kidney Disease: Yes - ENDOCRINE/METABOLIC Hx Hyperthyroidism: No Hx Hypothyroidism: Yes - HEMATOLOGICAL/ONCOLOGICAL Hx Anemia: Yes Hx Human Immunodeficiency Virus (HIV): No Hx Sickle Cell Disease: No - INTEGUMENTARY Hx Dermatological Problems: No Hx Basil Cell: No Hx Fontenot: No Hx Cellulitis: No Hx Eczema: No Hx Melanoma: No Hx Psoriasis: No Hx Squamous Cell: No - MUSCULOSKELETAL/RHEUMATOLOGICAL Hx Arthritis: No Hx Fractures: No Hx Osteoporosis: No Hx Rheumatoid Arthritis: Yes - GASTROINTESTINAL Hx Crohn's Disease: No Hx Diverticulitis: No Hx Gall Bladder Disease: No Hx Gastritis: No Hx Pancreatitis: No - GENITOURINARY/GYNECOLOGICAL Hx Sexually Transmitted Disorders: No - PSYCHIATRIC Hx Anxiety: Yes Hx Bipolar Disorder: No Hx Depression: Yes Hx Paranoia: No Hx Post Traumatic Stress Disorder: No Hx Schizophrenia: No - SURGICAL HISTORY Hx Appendectomy: No Hx Carotid Endarterectomy: No Hx Cholecystectomy: No Hx Coronary Artery Bypass Graft: No Hx Coronary Stent: No Hx Tonsillectomy: Yes - ANESTHESIA Hx Anesthesia: Yes Hx Anesthesia Reactions: No Hx Malignant Hyperthermia: No Meds Allergies/Adverse Reactions: Allergies Allergy/AdvReac Type Severity Reaction Status Date / Time seasonal Allergy CONGESTION Uncoded 09/28/15 13:52 - Medications Medications: Current Medications Alprazolam (Xanax) 2 mg PO TID PRN PRN Reason: Anxiety Last Admin: 01/23/17 23:03 Dose: 2 mg Atorvastatin Calcium (Lipitor) 20 mg PO DAILY [facility] Last Admin: 01/24/17 09:24 Dose: 20 mg Carbamazepine (Tegretol) 200 mg PO BID [facility] Last Admin: 01/24/17 09:29 Dose: 200 mg Enoxaparin Sodium (Lovenox) 50 mg SC Q12 [facility] PRN Reason: Protocol Last Admin: 01/24/17 09:25 Dose: 50 mg Home Med (Dulaglutide [Trulicity]) 1.5 mg INJ QWK [facility] Home Med (Linaclotide [Linzess]) 145 mcg PO DAILY [facility] Levetiracetam (Keppra) 1,000 mg PO TID [facility] Last Admin: 01/24/17 09:24 Dose: 1,000 mg Levothyroxine Sodium (Synthroid) 100 mcg PO DAILY@0630 [facility] Last Admin: 01/24/17 06:27 Dose: 100 mcg Megestrol Acetate (Megace) 400 mg PO DAILY [facility] Last Admin: 01/24/17 09:28 Dose: 400 mg Midodrine (Proamatine) 5 mg PO BID [facility] Last Admin: 01/24/17 09:28 Dose: 5 mg Ondansetron HCl (Zofran Inj) 4 mg IVP Q8 PRN PRN Reason: Nausea/Vomiting Last Admin: 01/22/17 18:05 Dose: 4 mg Oxycodone HCl (Oxycontin Extended Release Tab) 10 mg PO BID [facility] Stop: 01/25/17 09:01 Last Admin: 01/24/17 09:33 Dose: 10 mg Oxycodone/Acetaminophen (Percocet 5/325 Mg Tab) 1 tab PO Q4 PRN PRN Reason: Pain, moderate (4-7) Stop: 01/24/17 21:26 Last Admin: 01/23/17 20:14 Dose: 1 tab Oxycodone/Acetaminophen (Percocet 5/325 Mg Tab) 2 tab PO Q4 PRN PRN Reason: Pain, severe (8-10) Stop: 01/25/17 00:33 Last Admin: 01/22/17 05:19 Dose: 2 tab Pregabalin (Lyrica) 75 mg PO TID [facility] Last Admin: 01/24/17 09:33 Dose: 75 mg Zolpidem Tartrate (Ambien) 5 mg PO HS [facility] Last Admin: 01/23/17 23:03 Dose: 5 mg Physical Exam - Additional Findings Additional findings: Physical exam; SAlert. well oriented in nop acute distress neck; Supple, no adenopathy Chest; Clear, no rales or rhonchi Heart; RSR, no murur abD; Soft,no mass, hepato/spenomegaly. Results - Vital Signs Recent Vital Signs: Last Vital Signs Temp 97.7 F 01/24/17 08:35 Pulse 63 01/24/17 08:35 Resp 20 01/24/17 08:35 BP 110/74 01/24/17 08:35 Pulse Ox 100 01/24/17 08:35 - Labs Result Diagrams: 01/21/17 15:39 01/21/17 16:59 Labs: Laboratory Results - last 24 hr 01/23/17 01/23/17 01/23/17 10:52 15:57 21:21 POC Glucose (mg/dL) 127 H 127 H 109 01/24/17 05:29 POC Glucose (mg/dL) 100 Assessment & Plan - Assessment and Plan (Free Text) Assessment: Impression;brain malignant meningioma Pulmonary embolism, Plan: Plan;Would continue the anticoagulant lovenox and change to oral in a couple of days She should resume her chemotherapy when she goes home - Date & Time Date: 01/24/17 Time: 10:09
--- NOTE | 2017-01-24 12:26 | CP.PCM.DIS ---
Provider - Provider Date of Admission: 01/21/17 17:57 Attending physician: Yariel Hancock MD Time Spent in preparation of Discharge (in minutes): 35 Hospital Course - Lab Results Lab Results: Most Recent Lab Values WBC 5.3 K/uL (4.8-10.8) 01/21/17 15:39 RBC 4.78 Mil/uL (3.80-5.20) 01/21/17 15:39 Hgb 13.3 g/dL (12.0-16.0) 01/21/17 15:39 Hct 41.6 % (34.0-47.0) 01/21/17 15:39 MCV 87.0 fl (81.0-99.0) 01/21/17 15:39 MCH 27.8 pg (27.0-31.0) 01/21/17 15:39 MCHC 31.9 g/dL (33.0-37.0) L 01/21/17 15:39 RDW 14.1 % (11.5-14.5) 01/21/17 15:39 Plt Count 192 K/uL (130-400) 01/21/17 15:39 MPV 9.9 fl (7.2-11.7) 01/21/17 15:39 Neut % (Auto) 49.6 % (50.0-75.0) L 01/21/17 15:39 Lymph % (Auto) 37.0 % (20.0-40.0) 01/21/17 15:39 [place] % (Auto) 10.0 % (0.0-10.0) 01/21/17 15:39 Eos % (Auto) 2.7 % (0.0-4.0) 01/21/17 15:39 Baso % (Auto) 0.7 % (0.0-2.0) 01/21/17 15:39 Neut # 2.6 K/uL (1.8-7.0) 01/21/17 15:39 Lymph # 2.0 K/uL (1.0-4.3) 01/21/17 15:39 [place] # 0.5 K/uL (0.0-0.8) 01/21/17 15:39 Eos # 0.1 K/uL (0.0-0.7) 01/21/17 15:39 Baso # 0.0 K/uL (0.0-0.2) 01/21/17 15:39 D-Dimer, Quantitative 413 ng/mlDDU (0-230) H 01/21/17 16:59 Sodium 138 mmol/l (132-148) 01/21/17 16:59 Potassium 4.3 MMOL/L (3.6-5.0) 01/21/17 16:59 Chloride 102 mmol/L (98-107) 01/21/17 16:59 Carbon Dioxide 22 mmol/L (22-30) 01/21/17 16:59 Anion Gap 18 (10-20) 01/21/17 16:59 BUN 14 mg/dl (7-17) 01/21/17 16:59 Creatinine 0.9 mg/dL (0.7-1.2) 01/21/17 16:59 Est GFR ( Amer) > 60 01/21/17 16:59 Est GFR (Non-Af Amer) > 60 01/21/17 16:59 POC Glucose (mg/dL) 100 mg/dL (65-110) 01/24/17 05:29 Random Glucose 84 mg/dL (65-105) 01/21/17 16:59 Calcium 9.9 mg/dL (8.4-10.2) 01/21/17 16:59 Total Bilirubin 0.5 mg/dl (0.2-1.3) 01/21/17 16:59 AST 35 U/L (14-36) 01/21/17 16:59 ALT 27 U/L (9-52) 01/21/17 16:59 Alkaline Phosphatase 75 U/L (38-126) 01/21/17 16:59 Troponin I < 0.0120 ng/mL (0.00-0.120) 01/22/17 14:54 Total Protein 9.2 G/DL (6.3-8.2) H 01/21/17 16:59 Albumin 4.8 g/dL (3.5-5.0) 01/21/17 16:59 Globulin 4.4 gm/dL (2.2-3.9) H 01/21/17 16:59 Albumin/Globulin Ratio 1.1 (1.0-2.1) 01/21/17 16:59 Discharge Exam - Head Exam Head Exam: ATRAUMATIC, NORMOCEPHALIC Discharge Plan - Discharge Medications Prescriptions: Apixaban [Eliquis] 2.5 mg PO BID #60 tablet - Follow Up Plan Condition: FAIR Disposition: HOME/ ROUTINE
== END 2017-01-24 11:55 | disposition home or self-care (01) | DRG 175 ==
LOC: H.ER 14:00 → H.ERHOLD 17:57 → H.TEL 21:46
PROVIDERS: ADMIT Family Medicine; ATTEND Family Medicine
DX: I26.99 Other pulmonary embolism without acute cor pulmonale (principal); J96.00 Acute respiratory failure, unspecified whether with hypoxia or hypercapnia; C70.0 Malignant neoplasm of cerebral meninges; E11.22 Type 2 diabetes mellitus with diabetic chronic kidney disease; D68.59 Other primary thrombophilia; E03.9 Hypothyroidism, unspecified; E78.00 Pure hypercholesterolemia, unspecified; E78.5 Hyperlipidemia, unspecified; G40.909 Epilepsy, unspecified, not intractable, without status epilepticus; I12.9 Hypertensive chronic kidney disease with stage 1 through stage 4 chronic kidney disease, or unspecified chronic kidney disease; N18.9 Chronic kidney disease, unspecified; M06.9 Rheumatoid arthritis, unspecified; I25.10 Atherosclerotic heart disease of native coronary artery without angina pectoris; F41.9 Anxiety disorder, unspecified; G89.29 Other chronic pain; J45.909 Unspecified asthma, uncomplicated; F32.9 Major depressive disorder, single episode, unspecified

== ENCOUNTER 2017-04-21 14:11 | Inpatient (IN) | payer MEDICARE, OTHER ==
[2017-04-21] MEDS ORDERED: Sodium Chloride 0.9% 1,000 ML IV STA (14:24)
--- NOTE | 2017-04-21 14:25 | ED PDOC ---
HPI: Seizure Time Seen by Provider: 04/21/17 14:23 Chief Complaint (Nursing): Seizure Chief Complaint (Provider): Seizure History Per: Patient, EMS History/Exam Limitations: no limitations Additional Complaint(s): Pt. was [employer] with friends and had a seizure, whole body shaking. Friend witnessed and held her so pt. did not hit her head. Pt. was post ictal when EMS arrived. On eval, pt. aaox3. Pt. states she has a headache after the incident. No dyspnea, new weakness. No numbness, tingles. No abd pain, nausea , vomit, diarrhea, neck pain. Has chronic left eye movement issues, left side weakness. On tegretol and keppra. Past Medical History Reviewed: Nursing Documentation, Vital Signs Vital Signs: Last Vital Signs Temp 98.0 F 04/21/17 14:12 Pulse 88 04/21/17 14:12 Resp 16 04/21/17 14:12 BP 133/72 04/21/17 14:12 Pulse Ox 100 04/21/17 14:25 - Medical History PMH: Anemia, Anxiety, Asthma, CAD, Depression, Diabetes, HTN, Hypercholesterolemia, Hypothyroidism, Kidney Stones, Malignancy (Malignant meningioma), Chronic Kidney Disease, Rheumatoid Arthritis, Seizures Denies: Alzheimer's Disease, Arthritis, Atrial Fibrillation, Bipolar Disorder , Bronchitis, Cardia Arrhythmia, CHF, COPD, Crohn's Disease, Dementia, Diverticulitis, Emphysema, Fractures, Gastritis, Gall Bladder Disease, HIV, Hyperthyroidism, Migraine, Mitral Valve Prolapse, Multiple Sclerosis, Osteoporosis, Pancreatitis, Paranoia, Parkinson's Disease, Peripheral Edema, Pneumonia, Post Traumatic Stress Disorder, Pulmonary Embolism, Schizophrenia, Sickle Cell Disease, Sexually Transmitted Disease, Sleep Apnea, TIA - Surgical History Surgical History: Pacemaker, Tonsillectomy Denies: Appendectomy, CABG, Carotid Endarterectomy, Cholecystectomy, Coronary Stent - Family History Family History: States: Unknown Family Hx - Social History Alcohol: None Drugs: Denies - Immunization History Hx Tetanus Toxoid Vaccination: No Hx Influenza Vaccination: No Hx Pneumococcal Vaccination: No - Home Medications Home Medications: Ambulatory Orders Medication Instructions Recorded Acetaminophen/Oxycodone Hydr 1 tab PO Q4 01/21/17 [Percocet 10/325 mg Tab] Alprazolam [Xanax] 2 mg PO TID 01/21/17 Dulaglutide [Trulicity] 1.5 mg INJ QWK 01/21/17 Levothyroxine [Synthroid] 100 mcg PO DAILY 01/21/17 Linaclotide [Linzess] 145 mcg PO DAILY 01/21/17 Midodrine [Proamatine] 5 mg PO BID 01/21/17 Oxycodone HCl [Oxycontin] 10 mg PO BID 01/21/17 Pregabalin [Lyrica] 75 mg PO TID 01/21/17 Rosuvastatin Calcium [Crestor] 10 mg PO DAILY 01/21/17 Zolpidem [Ambien] 10 mg PO DAILY 01/21/17 carBAMazepine [Tegretol] 200 mg PO BID 01/21/17 levETIRAcetam [Keppra] 2 tab PO TID 01/21/17 Apixaban [Eliquis] 2.5 mg PO BID #60 tablet 01/24/17 - Allergies Allergies/Adverse Reactions: Allergies Allergy/AdvReac Type Severity Reaction Status Date / Time seasonal Allergy CONGESTION Uncoded 09/28/15 13:52 Review of Systems ROS Statement: Except As Marked, All Systems Reviewed And Found Negative Neurological: Positive for: Weakness (focal weakness), Headache Physical Exam - Reviewed Nursing Documentation Reviewed: Yes Vital Signs Reviewed: Yes - Physical Exam Appears: Positive for: Uncomfortable Head Exam: Positive for: ATRAUMATIC, NORMOCEPHALIC. Negative for: NORMAL INSPECTION (surgical scar left side of head and idented skull) Skin: Positive for: Normal Color, Warm, DRY Eye Exam: Positive for: PERRL. Negative for: EOMI (left eye unable to move to the left chronic for pt.), Periorbital swelling, Periorbital tenderness ENT: Positive for: Normal ENT Inspection Neck: Positive for: Normal, Painless ROM, Supple Cardiovascular/Chest: Positive for: Regular Rate, Rhythm. Negative for: Edema Respiratory: Positive for: CNT, Normal Breath Sounds Gastrointestinal/Abdominal: Positive for: Normal Exam, Bowel Sounds, Soft. Negative for: Tenderness Back: Positive for: Normal Inspection. Negative for: L CVA Tenderness, R CVA Tenderness Extremity: Positive for: Normal ROM. Negative for: Tenderness, Pedal Edema Neurologic/Psych: Positive for: Alert, Oriented. Negative for: senior director marketing II-XII ( unable to move left eye to the left (present since brain surgeries)), Motor/ Sensory Deficits, Aphasia, Facial Droop - ECG ECG: Positive for: Interpreted By Me, Viewed By Me ECG Rhythm: Positive for: Venticular Paced O2 Sat by Pulse Oximetry: 100 Pulse Ox Interpretation: Normal - Progress ED Course And Treament: 1437: Stable. Dr. Pereyra to take over care. Fu on labs, imaging. Dispo. Disposition - Clinical Impression Clinical Impression: Seizure disorder - Patient ED Disposition Is Patient to be Admitted: Transfer of Care - Disposition Disposition Time: 14:44 Condition: FAIR Patient Signed Over To: Merissa Pereyra
[2017-04-21 15:19] LABS: BASO % 0.6 % (0.0-2.0); EOS # 0.1 K/uL (0.0-0.7); EOS % 2.8 % (0.0-4.0); HEMATOCRIT 35.9 % (34.0-47.0); LYMPH # 1.6 K/uL (1.0-4.3); LYMPH % 33.4 % (20.0-40.0); MEAN CORPUSCULAR HEMOGLOBIN 28.7 pg (27.0-31.0); MEAN CORPUSCULAR HGB CONC 32.6 g/dL (33.0-37.0); MEAN PLATELET VOLUME 10.1 fl (7.2-11.7); MONO # 0.3 K/uL (0.0-0.8); MONO % 7.1 % (0.0-10.0); NEUT # 2.7 K/uL (1.8-7.0); NEUT % 56.1 % (50.0-75.0); NRBC % 0.4 % (0.0-0.0); RED CELL DISTRIBUTION WIDTH 13.7 % (11.5-14.5); WHITE BLOOD COUNT 4.9 K/uL (4.8-10.8)
--- NOTE | 2017-04-21 15:19 | ED PDOC ---
- Laboratory Results Result Diagrams: 04/21/17 15:14 04/21/17 15:14 - ECG ECG Rhythm: Positive for: Sinus Rhythm, Venticular Paced O2 Sat by Pulse Oximetry: 100 (RA) Pulse Ox Interpretation: Normal - Radiology X-Ray: Interpreted by Me X-Ray Interpretation: No Acute Disease Medical Decision Making Medical Decision Making: Time: 15:00 Patient is signed to me by Dr. Wander Schroeder, pending ER workup, reevaluation and final disposition. Had seizure-like activity in ER around 3pm resolved with Ativan 2mg. Will need hospitalization for 1600 Labs with no emergently significant lab abnormalities. Reeval pt is requesting medicine for her headache. Reports that she takes Percocet at home. EXAM: CT Head Without Intravenous Contrast EXAM DATE/TIME: 04/21/2017 2:23 PM CLINICAL HISTORY: 51 years old, female; Signs and symptoms; Syncope and collapse; Prior surgery; Surgery date: 6+ months; Surgery type: Carotid endarterectomy; Patient HX: Pat had a seizure, whole body shaking, pat state she has a headache after the incident TECHNIQUE: Axial computed tomography images of the head/brain without intravenous contrast. All CT scans at this facility use one or more dose reduction techniques, viz.: automated exposure control; ma/kV adjustment per patient size (including targeted exams where dose is matched to indication; i.e. head); or iterative reconstruction technique. Coronal and sagittal reformatted images were created and reviewed. COMPARISON: CT - HEAD W/WO CONTRAST 2015-09-28 13:59 FINDINGS: Brain: Left temporal encephalomalacia without change. Asymmetric soft tissue thickening on either side of the petrous ridge, slightly hyperdense to adjacent brain parenchyma. Partial effacement of the left lateral pontine cistern and subtle mass effect on left tani. This portion measures 5 x 20 mm in transverse and AP dimensions. Opposite side measures about 4.5 x 13 mm. No hemorrhage. No significant white matter disease. Ventricles: Unremarkable. No ventriculomegaly. Bones/joints: Again identified are left frontal craniotomy and temporal craniectomy. No acute fracture. Soft tissues: Unremarkable. Sinuses: Unremarkable as visualized. No acute sinusitis. Mastoid air cells: Partial left mastoidectomy. IMPRESSION: 1. Post operative changes left frontal temporal lobe with left temporal encephalomalacia, unchanged. 2. Stable extra-axial mass on either side of left petrous ridge, likely meningioma. 3. No acute cerebral hemorrhage or edema. Thank you for allowing us to participate in the care of your patient. Dictated and Authenticated by: Sahara Martin MD 04/21/2017 4:33 PM Eastern Time ([place] & [place]) Scribe Attestation: Documented by Grant Whatley, acting as a scribe for Merissa Pereyra MD Provider Scribe Attestation: All medical record entries made by the Scribe were at my direction and personally dictated by me. I have reviewed the chart and agree that the record accurately reflects my personal performance of the history, physical exam, medical decision making, and the department course for this patient. I have also personally directed, reviewed, and agree with the discharge instructions and disposition. Disposition Discussed With Dr.: Yariel Hancock Doctor Will See Patient In The: Hospital Counseled Patient/Family Regarding: Studies Performed, Diagnosis - Clinical Impression Clinical Impression: Seizure disorder, Recurrent seizures - POA Present On Arrival: Falls Or Trauma - Disposition Disposition: Admitted as In-Patient Disposition Time: 15:45 Condition: FAIR Forms: [employer] (Congolese)
[2017-04-21 15:30] LABS: ALB/GLOB RATIO 1.2 (1.0-2.1); ALCOHOL SERUM < 10 mg/dl (0-10); ALKALINE PHOSPHATASE 70 U/L (38-126); ALT/SGPT 38 U/L (9-52); AST/SGOT 34 U/L (14-36); BILIRUBIN,TOTAL 0.3 mg/dl (0.2-1.3); BLOOD UREA NITROGEN 10 mg/dl (7-17); CALCIUM 10.1 mg/dL (8.4-10.2); CARBON DIOXIDE 25 mmol/L (22-30); CHLORIDE 105 mmol/L (98-107); GFR AFRICAN-AMERICAN > 60; GLUCOSE,RANDOM 85 mg/dL (65-105); POTASSIUM 4.2 MMOL/L (3.6-5.0); SODIUM 143 mmol/l (132-148)
[2017-04-21 15:39] LABS: PARTIAL THROMBOPLASTIN TIME 36.3 Seconds (25.6-37.1)
--- NOTE | 2017-04-21 16:33 | CT ---
EXAM: CT Head Without Intravenous Contrast EXAM DATE/TIME: 04/21/2017 2:23 PM CLINICAL HISTORY: 51 years old, female; Signs and symptoms; Syncope and collapse; Prior surgery; Surgery date: 6+ months; Surgery type: Carotid endarterectomy; Patient HX: Pat had a seizure, whole body shaking, pat state she has a headache after the incident TECHNIQUE: Axial computed tomography images of the head/brain without intravenous contrast. All CT scans at this facility use one or more dose reduction techniques, viz.: automated exposure control; ma/kV adjustment per patient size (including targeted exams where dose is matched to indication; i.e. head); or iterative reconstruction technique. Coronal and sagittal reformatted images were created and reviewed. COMPARISON: CT - HEAD W/WO CONTRAST 2015-09-28 13:59 FINDINGS: Brain: Left temporal encephalomalacia without change. Asymmetric soft tissue thickening on either side of the petrous ridge, slightly hyperdense to adjacent brain parenchyma. Partial effacement of the left lateral pontine cistern and subtle mass effect on left tani. This portion measures 5 x 20 mm in transverse and AP dimensions. Opposite side measures about 4.5 x 13 mm. No hemorrhage. No significant white matter disease. Ventricles: Unremarkable. No ventriculomegaly. Bones/joints: Again identified are left frontal craniotomy and temporal craniectomy. No acute fracture. Soft tissues: Unremarkable. Sinuses: Unremarkable as visualized. No acute sinusitis. Mastoid air cells: Partial left mastoidectomy. IMPRESSION: 1. Post operative changes left frontal temporal lobe with left temporal encephalomalacia, unchanged. 2. Stable extra-axial mass on either side of left petrous ridge, likely meningioma. 3. No acute cerebral hemorrhage or edema.
[2017-04-21] MEDS ORDERED: Oxycodone/Acetaminophen 5/325 mg Tab PO STA (16:38)
[2017-04-21] MEDS ORDERED: oxyCODONE 10 mg ER Tab (oxyCONTIN) PO PRN (17:35)
[2017-04-21] MEDS ORDERED: HYDROmorphone 1 mg/ml ISec IVP PRN (17:39)
[2017-04-22] MEDS: Levothyroxine 100 MCG TAB PO SCH (06:49)
[2017-04-22] MEDS: HYDROmorphone 0.5 mg/0.5 ml ISec IVP PRN ×2 (06:51→21:16)
--- NOTE | 2017-04-22 07:28 | RAD ---
HISTORY: dyspnea COMPARISON: No prior. FINDINGS: LUNGS: No active pulmonary disease. PLEURA: No significant pleural effusion identified, no pneumothorax apparent. CARDIOVASCULAR: Normal. Pacemaker and lead in place. OSSEOUS STRUCTURES: No significant abnormalities. VISUALIZED UPPER ABDOMEN: Normal. OTHER FINDINGS: None. IMPRESSION: No active disease.
--- NOTE | 2017-04-22 09:01 | CARD ---
APPROVED REPORT EKG Measurement Heart [id number] <Conclusion> Atrial-sensed ventricular-paced rhythm Abnormal ECG
--- NOTE | 2017-04-22 10:26 | PCM.RRT ---
SEALER OPERATOR Nurse Assessment - Situation SEALER OPERATOR Responder Arrival Time: 10:05 SEALER OPERATOR Reason for Call: Change in Mental Status (seizure ) - IV IV Inserted during SEALER OPERATOR?: No - Respiratory Oxygen Delivery Method: Room Air - Medication Medications Administered During SEALER OPERATOR: Lorazapam 1mg IV - Diagnostic Test Ordered EKG: No - Vital Signs Vital Signs: Initial vital signs were: Afebrile BP 109/94 HR 118 O2 100 on RA - Time SEALER OPERATOR Ended Time SEALER OPERATOR Ended: 10:15 - Vital Signs at end of SEALER OPERATOR Vital Signs at end of SEALER OPERATOR: At the end of SEALER OPERATOR: afebrile BP 103/70 HR 89 O2 100 on RA - Recommendations SEALER OPERATOR Level of Care Recommendations: Remain in current setting I.Reason for SEALER OPERATOR - A) Acute Change in Patient: (Select all that apply): Acute change in mental status (seizure ) - Neurological Status (Select all that apply): Alert, Responsive, Oriented, Verbal, Follows Commands - Respiratory Oxygen Delivery Method: Room Air - Constitutional Appears: Well, Non-toxic - Head Head Exam: ATRAUMATIC, NORMAL INSPECTION, NORMOCEPHALIC - Eyes Eye Exam: EOMI, Normal appearance - Respiratory Exam Respiratory Exam: Clear to Ausculation Bilateral, NORMAL BREATHING PATTERN. absent: Wheezes - Cardiovascular Exam Cardiovascular Exam: REGULAR RHYTHM, +S1, +S2 - GI/Abdominal Exam GI & Abdominal Exam: Normal Bowel Sounds. absent: Soft, Tenderness - Neurological Exam Neurological Exam: Alert, Awake, Normal Gait, Oriented x3 - Extremities Exam Extremities Exam: Full ROM, Normal Inspection. absent: Pedal Edema, Tenderness Plan - Assessment of Findings&Treatment Plan 51 YO Female with known hx of seizure, SEALER OPERATOR was called by nurse for seizure. Pt was not given seizure medications this morning, SEALER OPERATOR called, seen seizing at bedside. Attending present, given 1mg of IV Ativan. Seizure resolved, given PO home meds. Pt stable, verbose at the end of SEALER OPERATOR.
--- NOTE | 2017-04-22 13:08 | CON ---
NEUROLOGY CONSULTATION REASON FOR CONSULTATION: Seizure. HISTORY OF PRESENT ILLNESS: The patient is a 51-year-old female with history of malignant meningioma, who was brought to the emergency room after she had 2 episodes of seizure, one of the episode was in the emergency room. The patient was given Ativan and after that, her seizure stopped. The patient apparently had several craniotomies in the past and also, has history of seizures. The patient has been taking Keppra and Tegretol. The patient was previously on Topamax; however, it was stopped as she was having loss of weight. Denies any headache or dizziness. PAST MEDICAL HISTORY: Includes seizure disorder, hypothyroidism, chronic pain syndrome. MEDICATIONS: Include Keppra 1000 mg 2 times a day, Tegretol 200 mg twice a day, Ambien, Crestor, Lyrica, OxyContin, midodrine, Linzess, Synthroid, dulaglutide, Eliquis, Xanax, Percocet p.r.n. ALLERGIES: NO KNOWN DRUG ALLERGY. FAMILY HISTORY: Reviewed and noncontributory to the case. SOCIAL HISTORY: Denies smoking, use of alcohol or illicit drugs. REVIEW OF SYSTEMS: Denies any headache, dizziness, chest pain, shortness of breath, abdominal pain, constipation, diarrhea, dysuria, cough, sputum production. PHYSICAL EXAMINATION GENERAL: The patient is a middle-aged female, lying on the bed, in no acute distress. VITAL SIGNS: Blood pressure is 110/53, heart rate is 71 per minute, breathing at the rate of 16 per minute, temperature is 98 degree Fahrenheit. HEENT: Head is normocephalic, atraumatic. NECK: Supple. There are no carotid bruits. LUNGS: Clear. CARDIOVASCULAR SYSTEM: S1 and S2 are audible. No murmurs. ABDOMEN: Soft, nontender. Bowel sounds are present. NEUROLOGY: Mental status: The patient is awake, alert, oriented to time, place and person. Her speech is fluent. Naming and repetition normal. Memory and cognition are intact. Cranial nerve examination: Pupils are 3 mm, bilaterally reactive to light. Visual love are full. Extraocular movements are intact. There is no facial asymmetry. Palate is upgoing bilaterally and tongue is midline. Motor examination: Tone is normal. Power is 5/5 bilaterally in all extremities. Reflexes +2 and symmetrical. Plantars downgoing bilaterally. LABORATORY DATA: Labs reviewed which showed WBC of 4.9, hemoglobin 11.7, hematocrit 35.9 and platelets of 220. INR is 1.2. Sodium is 143, potassium 4.2, chloride 105, carbon dioxide 25, BUN of 10, creatinine 0.9 and glucose of 85. Her urine toxicology screen is positive for opiates. She had a CT scan of the head done which shows postoperative changes, left frontotemporal lobe with left temporal encephalomalacia, unchanged from previous CT scan. Stable extra-axial mass on either side of the left petrous ridge, likely meningioma. IMPRESSION: 1. Breakthrough seizure with history of seizure disorder. 2. History of meningioma. RECOMMENDATIONS: 1. The patient said that she has been on Keppra 1000 mg twice a day and not 3 times a day. We will increase the dose of Keppra to 1250 mg two times a day. 2. The patient to be continued on Tegretol as well as Lyrica, which also has an antiseizure effect. 3. If the patient remains seizure free and stable, she may be discharged tomorrow with outpatient followup. Thank you for the opportunity to participate in the care of this patient. Yeimi Haro MD
--- NOTE | 2017-04-22 13:10 | CP.PCM.HP ---
History of Present Illness - History of Present Illness History of Present Illness: This is a 51 y/o female with hx of meningioma and seizure and recurrent headaches was admitted last night for recurrence of seizure despite being on medications. Past Patient History - Infectious Disease Hx of Infectious Diseases: None - Tetanus Immunizations Tetanus Immunization: Unknown - Past Medical History & Family History Past Medical History?: Yes - Past Social History Smoking Status: Never Smoked - CARDIAC Hx Cardiac Disorders: Yes Hx Hypercholesterolemia: Yes Hx Hypertension: Yes Hx Pacemaker: Yes - PULMONARY Hx Respiratory Disorders: Yes Hx Asthma: Yes - NEUROLOGICAL Hx Neurological Disorder: Yes Other/Comment: Malignant Meningioma - HEENT Hx HEENT Problems: No - RENAL Hx Chronic Kidney Disease: Yes - ENDOCRINE/METABOLIC Hx Endocrine Disorders: Yes Hx Diabetes Mellitus Type 2: Yes - HEMATOLOGICAL/ONCOLOGICAL Hx Blood Disorders: No Hx AIDS: No - INTEGUMENTARY Hx Dermatological Problems: No - MUSCULOSKELETAL/RHEUMATOLOGICAL Hx Arthritis: Yes Hx Falls: Yes Hx Fractures: No Hx Osteoporosis: No Hx Rheumatoid Arthritis: Yes - GASTROINTESTINAL Hx Crohn's Disease: No Hx Diverticulitis: No Hx Gall Bladder Disease: No Hx Gastritis: No Hx Pancreatitis: No - GENITOURINARY/GYNECOLOGICAL Hx Sexually Transmitted Disorders: No - PSYCHIATRIC Hx Anxiety: Yes Hx Bipolar Disorder: No Hx Depression: Yes Hx Post Traumatic Stress Disorder: No Hx Schizophrenia: No Hx Substance Use: No - SURGICAL HISTORY Hx Appendectomy: No Hx Carotid Endarterectomy: No Hx Cholecystectomy: No Hx Coronary Artery Bypass Graft: No Hx Coronary Stent: No Hx Hysterectomy: Yes Hx Tonsillectomy: Yes - ANESTHESIA Hx Anesthesia: Yes Hx Anesthesia Reactions: No Hx Malignant Hyperthermia: No Has any member of the family had a problem w/ anesthesia?: No Meds Home Medications: Home Medication List Medication Instructions Recorded Confirmed Type ALPRAZolam [Xanax] 2 mg PO Q12@1100,2300 tab 04/24/17 Rx Atorvastatin [Lipitor] 20 mg PO DAILY tab 04/24/17 Rx Dexamethasone/Tobramycin [Tobradex 1 drop OS TID bottle 04/24/17 Rx Opht Susp] Midodrine [Proamatine] 5 mg PO BID tab 04/24/17 Rx cefTRIAXone 1 gm [Rocephin 1 gram 1 gm IVPB DAILY #5 bag 04/24/17 Rx IVPB] levETIRAcetam [Keppra] 1,250 mg PO BID tab 04/24/17 Rx traZODone [Desyrel] 150 mg PO HS tab 04/24/17 Rx Allergies/Adverse Reactions: Allergies Allergy/AdvReac Type Severity Reaction Status Date / Time seasonal Allergy CONGESTION Uncoded 04/24/17 17:42 Results - Vital Signs Recent Vital Signs: Last Vital Signs Temp 97.9 F 04/22/17 12:24 Pulse 65 04/22/17 12:24 Resp 18 04/22/17 12:24 BP 106/64 04/22/17 12:24 Pulse Ox 100 04/22/17 12:24 - Labs Result Diagrams: 04/21/17 15:14 04/21/17 15:14 Labs: Laboratory Results - last 24 hr 04/21/17 04/21/17 04/21/17 14:25 15:14 15:14 WBC 4.9 RBC 4.08 Hgb 11.7 L Hct 35.9 MCV 88.0 MCH 28.7 MCHC 32.6 L RDW 13.7 Plt Count 220 MPV 10.1 Neut % (Auto) 56.1 Lymph % (Auto) 33.4 Gem % (Auto) 7.1 Eos % (Auto) 2.8 Baso % (Auto) 0.6 Neut # 2.7 Lymph # 1.6 Gem # 0.3 Eos # 0.1 Baso # 0.0 PT INR APTT Sodium 143 Potassium 4.2 Chloride 105 Carbon Dioxide 25 Anion Gap 18 BUN 10 Creatinine 0.9 Est GFR ( Amer) > 60 Est GFR (Non-Af Amer) > 60 POC Glucose (mg/dL) 85 Random Glucose 85 Lactic Acid Calcium 10.1 Total Bilirubin 0.3 AST 34 ALT 38 Alkaline Phosphatase 70 Troponin I < 0.0120 Total Protein 8.0 Albumin 4.4 Globulin 3.5 Albumin/Globulin Ratio 1.2 Urine Opiates Screen Urine Methadone Screen Ur Barbiturates Screen Ur Phencyclidine Scrn Ur Amphetamines Screen U Benzodiazepines Scrn U Oth Cocaine Metabols U Cannabinoids Screen Alcohol, Quantitative < 10 04/21/17 04/21/17 04/21/17 15:14 15:16 19:08 WBC RBC Hgb Hct MCV MCH MCHC RDW Plt Count MPV Neut % (Auto) Lymph % (Auto) Gem % (Auto) Eos % (Auto) Baso % (Auto) Neut # Lymph # Gem # Eos # Baso # PT 13.5 H INR 1.2 APTT 36.3 Sodium Potassium Chloride Carbon Dioxide Anion Gap BUN Creatinine Est GFR ( Amer) Est GFR (Non-Af Amer) POC Glucose (mg/dL) Random Glucose Lactic Acid 2.5 H Calcium Total Bilirubin AST ALT Alkaline Phosphatase Troponin I Total Protein Albumin Globulin Albumin/Globulin Ratio Urine Opiates Screen Positive H Urine Methadone Screen Negative Ur Barbiturates Screen Negative Ur Phencyclidine Scrn Negative Ur Amphetamines Screen Negative U Benzodiazepines Scrn Positive U Oth Cocaine Metabols Negative U Cannabinoids Screen Negative Alcohol, Quantitative 04/22/17 10:05 WBC RBC Hgb Hct MCV MCH MCHC RDW Plt Count MPV Neut % (Auto) Lymph % (Auto) Gem % (Auto) Eos % (Auto) Baso % (Auto) Neut # Lymph # Gem # Eos # Baso # PT INR APTT Sodium Potassium Chloride Carbon Dioxide Anion Gap BUN Creatinine Est GFR ( Amer) Est GFR (Non-Af Amer) POC Glucose (mg/dL) 89 Random Glucose Lactic Acid Calcium Total Bilirubin AST ALT Alkaline Phosphatase Troponin I Total Protein Albumin Globulin Albumin/Globulin Ratio Urine Opiates Screen Urine Methadone Screen Ur Barbiturates Screen Ur Phencyclidine Scrn Ur Amphetamines Screen U Benzodiazepines Scrn U Oth Cocaine Metabols U Cannabinoids Screen Alcohol, Quantitative
--- NOTE | 2017-04-22 13:20 | CP.PCM.CON ---
History of Present Illness - History of Present Illness History of Present Illness: 51 yo female with recurrent meningioma, seizures recently c/o chills w/o fever so far no compelling evidence of infection had nocardia in past - bacteremia IV rx in progress On chemo for meningioma compromised pt with elevated lactate in blood Review of Systems - Constitutional Constitutional: Anorexia, Chills, Malaise - EENT Eyes: absent: As Per HPI, Blind Spots, Blurred Vision, Change in Vision, Decreased Night Vision, Diplopia, Discharge, Dry Eye, Exophthalmos, Floaters, Irritation, Itchy Eyes, Loss of Peripheral Vision, Pain, Photophobia, Requires Corrective Lenses, Sees Flashes, Spots in Vision, Tunnel Vision, Other Visual Disturbances, Loss of Vision, Other Ears: absent: As Per HPI, Decreased Hearing, Ear Discharge, Ear Pain, Tinnitus, Abnormal Hearing, Disequilibrium, Dizziness, Other Nose/Mouth/Throat: absent: As Per HPI, Epistaxis, Nasal Congestion, Nasal Discharge, Nasal Obstruction, Nasal Trauma, Nose Pain, Post Nasal Drip, Sinus Pain, Sinus Pressure, Bleeding Gums, Change in Voice, Dental Pain, Dry Mouth, Dysphagia, Halitosis, Hoarsness, Lip Swelling, Mouth Lesions, Mouth Pain, Odynophagia, Sore Throat, Throat Swelling, Tongue Swelling, Facial Pain, Neck Pain, Neck Mass, Other - Breasts Breasts: absent: As Per HPI, Change in Shape, Mass, Pain, Nipple Discharge, Nipple Inversion, Skin Changes, Swelling, Other - Cardiovascular Cardiovascular: absent: As Per HPI, Acrocyanosis, Chest Pain, Chest Pain at Rest , Chest Pain with Activity, Claudication, Diaphoresis, Dyspnea, Dyspnea on Exertion, Edema, Irregular Heart Rhythm, Pain Radiating to Arm/Neck/Jaw, Leg Edema, Leg Ulcers, Lightheadedness, Orthopnea, Palpitations, Paroxysmal Nocturnal Dyspnea, Pedal Edema, Radiating Pain, Rapid Heart Rate, Slow Heart Rate, Syncope, Other - Respiratory Respiratory: absent: As Per HPI, Cough, Dyspnea, Hemoptysis, Dyspnea on Exertion , Wheezing, Snoring, Stridor, Pain on Inspiration, Chest Congestion, Excessive Mucous Production, Change in Mucous Color, Pain with Coughing, Other - Gastrointestinal Gastrointestinal: absent: As Per HPI, Abdominal Pain, Belching, Bloating, Change in Bowel Habits, Change in Stool Character, Coffee Ground Emesis, Constipation, Cramping, Diarrhea, Dyspepsia, Dysphagia, Early Satiety, Excessive Flatus, Fecal Incontinence, Heartburn, Hematemesis, Hematochezia, Loose Stools, Melena, Nausea, Odynophagia, Temesmus, Vomiting, Other - Genitourinary Genitourinary: As Per HPI - Reproductive: Female Reproductive:Female: absent: As Per HPI, Amenorrhea, Amenorrhea/ Control, Currently Menstual, Cycle <21 Days, Cycle >35 Days, Cycle Variable, Menses 1-7 Days, Menses >/= 8 Days, Menses Variable, Cycle > 4 Weeks Between, No Menses for 6 Months, Heavy Menses, Light Menses, Normal Menses, Spotting Between Cycles , S/P Hysterectomy, Menopausal, Post Menopausal, Premenarche, Abnormal Vaginal Bleeding, Dysmenorrhea, Dyspareunia, Genital Lesions, Genital Pruritis, Pelvic Pain, Prolapse Symptoms, Sexual Dysfunction, Vaginal Discharge, Vaginal Dryness , Vaginal Odor, Vaginal Pruritis, Other - Menstruation Menstruation: absent: As Per HPI, Amenorrhea, Amenorrhea/ Control, Currently Menstual, Cycle <21 Days, Cycle >35 Days, Cycle Variable, Menses 1-7 Days, Menses >/= 8 Days, Menses Variable, Cycle > 4 Weeks Between, No Menses for 6 Months, Heavy Menses, Light Menses, Normal Menses, Spotting Between Cycles , S/P Hysterectomy, Menopausal, Post Menopausal, Premenarche, Abnormal Vaginal Bleeding, Dysmenorrhea, Other - Musculoskeletal Musculoskeletal: As Per HPI - Integumentary Integumentary: absent: As Per HPI, Acne, Alopecia, Bleeding Lesions, Change in Hair, Change in Nails, Change in Pigmentation, Changing Lesions, Dry Skin, Erythema, Furuncle, Hirsutism, Lesions, New Lesions, Non-Healing Lesions, Photosensitivity, Pruritus, Rash, Skin Pain, Skin Ulcer, Sores, Striae, Swelling , Unusual Bruising, Wounds, Jaundice, Other - Neurological Neurological: As Per HPI, Abnormal Gait - Psychiatric Psychiatric: absent: As Per HPI, Abnormal Sleep Pattern, Anhedonia, Anxiety, Auditory Hallucinations, Behavioral Changes, Change in Appetite, Change in Libido, Confusion, Depression, Difficulty Concentrating, Hallucinations, Homicidal Ideation, Hopelessness, Irritability, Memory Loss, Mood Swings, Panic Attacks, Paranoia, Suicidal Ideation, Visual Hallucinations, Tactile Hallucinations, Other - Endocrine Endocrine: absent: As Per HPI, Change in Body Appearance, Change in Libido, Cold Intolorance, Deepening of Voice, Excessive Sweating, Fatigue, Flushing, Heat Intolorance, Increase in Ring/Shoe/Hat Size, Palpitations, Polydipsia, Polyphagia, Polyuria, Other - Hematologic/Lymphatic Hematologic: absent: As Per HPI, Easy Bleeding, Easy Bruising, Lymphadenopathy, Other Past Patient History - Infectious Disease Hx of Infectious Diseases: None - Tetanus Immunizations Tetanus Immunization: Unknown - Past Medical History & Family History Past Medical History?: Yes - Past Social History Smoking Status: Never Smoked - CARDIAC Hx Cardiac Disorders: Yes Hx Hypercholesterolemia: Yes Hx Hypertension: Yes Hx Pacemaker: Yes - PULMONARY Hx Respiratory Disorders: Yes Hx Asthma: Yes - NEUROLOGICAL Hx Neurological Disorder: Yes Other/Comment: Malignant Meningioma - HEENT Hx HEENT Problems: No - RENAL Hx Chronic Kidney Disease: Yes - ENDOCRINE/METABOLIC Hx Endocrine Disorders: Yes Hx Diabetes Mellitus Type 2: Yes - HEMATOLOGICAL/ONCOLOGICAL Hx Blood Disorders: Yes Hx AIDS: Yes - INTEGUMENTARY Hx Dermatological Problems: No - MUSCULOSKELETAL/RHEUMATOLOGICAL Hx Arthritis: Yes Hx Falls: Yes Hx Fractures: No Hx Osteoporosis: No Hx Rheumatoid Arthritis: Yes - GASTROINTESTINAL Hx Crohn's Disease: No Hx Diverticulitis: No Hx Gall Bladder Disease: No Hx Gastritis: No Hx Pancreatitis: No - GENITOURINARY/GYNECOLOGICAL Hx Sexually Transmitted Disorders: No - PSYCHIATRIC Hx Anxiety: Yes Hx Bipolar Disorder: No Hx Depression: Yes Hx Post Traumatic Stress Disorder: No Hx Schizophrenia: No Hx Substance Use: No - SURGICAL HISTORY Hx Appendectomy: No Hx Carotid Endarterectomy: No Hx Cholecystectomy: No Hx Coronary Artery Bypass Graft: No Hx Coronary Stent: No Hx Hysterectomy: Yes Hx Tonsillectomy: Yes - ANESTHESIA Hx Anesthesia: Yes Hx Anesthesia Reactions: No Hx Malignant Hyperthermia: No Has any member of the family had a problem w/ anesthesia?: No Meds Allergies/Adverse Reactions: Allergies Allergy/AdvReac Type Severity Reaction Status Date / Time seasonal Allergy CONGESTION Uncoded 09/28/15 13:52 - Medications Medications: Current Medications Alprazolam (Xanax) 2 mg PO BID [facility] Apixaban (Eliquis) 2.5 mg PO BID [facility] PRN Reason: Protocol Last Admin: 04/22/17 10:10 Dose: 2.5 mg Atorvastatin Calcium (Lipitor) 20 mg PO DAILY REPLACED BY [facility] Last Admin: 04/22/17 10:11 Dose: 20 mg Carbamazepine (Tegretol) 200 mg PO BID REPL[facility] BY [facility] Last Admin: 04/22/17 10:11 Dose: 200 mg Hydromorphone HCl (Dilaudid) 1 mg IVP Q6 PRN PRN Reason: Pain, severe (8-10) Levetiracetam (Keppra) 1,250 mg PO BID REPLACED BY [facility] Last Admin: 04/22/17 10:10 Dose: 1,250 mg Levothyroxine Sodium (Synthroid) 100 mcg PO DAILY@0630 REPLACED BY [facility] Last Admin: 04/22/17 06:49 Dose: 100 mcg Lorazepam (Ativan) 1 mg IVP Q6 PRN PRN Reason: Seizure activity Ondansetron HCl (Zofran Inj) 4 mg IVP Q6 PRN PRN Reason: Nausea/Vomiting Last Admin: 04/22/17 13:01 Dose: 4 mg Pregabalin (Lyrica) 75 mg PO TID REPLACED BY [facility] Last Admin: 04/22/17 10:15 Dose: 75 mg Trazodone HCl (Desyrel) 150 mg PO [facility] Physical Exam - Constitutional Appears: Non-toxic, Cachectic, Chronically Ill - Head Exam Head Exam: ATRAUMATIC, NORMAL INSPECTION, NORMOCEPHALIC - Eye Exam Eye Exam: EOMI, PERRL. absent: Scleral icterus - ENT Exam ENT Exam: Mucous Membranes Dry, Normal External Ear Exam - Neck Exam Neck exam: Negative for: Lymphadenopathy - Respiratory Exam Respiratory Exam: Decreased Breath Sounds - Cardiovascular Exam Cardiovascular Exam: REGULAR RHYTHM - GI/Abdominal Exam GI & Abdominal Exam: Diminished Bowel Sounds, Soft. absent: Tenderness - Rectal Exam Rectal Exam: Deferred - Exam Exam: NORMAL INSPECTION - Extremities Exam Extremities exam: Negative for: pedal edema - Back Exam Back exam: absent: CVA tenderness (L), CVA tenderness (R) - Neurological Exam Neurological exam: Alert, CN II-XII Intact, Oriented x3 - Psychiatric Exam Psychiatric exam: Depressed - Skin Skin Exam: Dry Results - Vital Signs Recent Vital Signs: Last Vital Signs Temp 97.9 F 04/22/17 12:24 Pulse 65 04/22/17 12:24 Resp 18 04/22/17 12:24 BP 106/64 04/22/17 12:24 Pulse Ox 100 04/22/17 12:24 - Labs Result Diagrams: 04/21/17 15:14 04/21/17 15:14 Labs: Laboratory Results - last 24 hr 04/21/17 04/21/17 04/21/17 14:25 15:14 15:14 WBC 4.9 RBC 4.08 Hgb 11.7 L Hct 35.9 MCV 88.0 MCH 28.7 MCHC 32.6 L RDW 13.7 Plt Count 220 MPV 10.1 Neut % (Auto) 56.1 Lymph % (Auto) 33.4 [place] % (Auto) 7.1 Eos % (Auto) 2.8 Baso % (Auto) 0.6 Neut # 2.7 Lymph # 1.6 [place] # 0.3 Eos # 0.1 Baso # 0.0 PT INR APTT Sodium 143 Potassium 4.2 Chloride 105 Carbon Dioxide 25 Anion Gap 18 BUN 10 Creatinine 0.9 Est GFR ( Amer) > 60 Est GFR (Non-Af Amer) > 60 POC Glucose (mg/dL) 85 Random Glucose 85 Lactic Acid Calcium 10.1 Total Bilirubin 0.3 AST 34 ALT 38 Alkaline Phosphatase 70 Troponin I < 0.0120 Total Protein 8.0 Albumin 4.4 Globulin 3.5 Albumin/Globulin Ratio 1.2 Urine Opiates Screen Urine Methadone Screen Ur Barbiturates Screen Ur Phencyclidine Scrn Ur Amphetamines Screen U Benzodiazepines Scrn U Oth Cocaine Metabols U Cannabinoids Screen Alcohol, Quantitative < 10 04/21/17 04/21/17 04/21/17 15:14 15:16 19:08 WBC RBC Hgb Hct MCV MCH MCHC RDW Plt Count MPV Neut % (Auto) Lymph % (Auto) [place] % (Auto) Eos % (Auto) Baso % (Auto) Neut # Lymph # [place] # Eos # Baso # PT 13.5 H INR 1.2 APTT 36.3 Sodium Potassium Chloride Carbon Dioxide Anion Gap BUN Creatinine Est GFR ( Amer) Est GFR (Non-Af Amer) POC Glucose (mg/dL) Random Glucose Lactic Acid 2.5 H Calcium Total Bilirubin AST ALT Alkaline Phosphatase Troponin I Total Protein Albumin Globulin Albumin/Globulin Ratio Urine Opiates Screen Positive H Urine Methadone Screen Negative Ur Barbiturates Screen Negative Ur Phencyclidine Scrn Negative Ur Amphetamines Screen Negative U Benzodiazepines Scrn Positive U Oth Cocaine Metabols Negative U Cannabinoids Screen Negative Alcohol, Quantitative 04/22/17 10:05 WBC RBC Hgb Hct MCV MCH MCHC RDW Plt Count MPV Neut % (Auto) Lymph % (Auto) [place] % (Auto) Eos % (Auto) Baso % (Auto) Neut # Lymph # [place] # Eos # Baso # PT INR APTT Sodium Potassium Chloride Carbon Dioxide Anion Gap BUN Creatinine Est GFR ( Amer) Est GFR (Non-Af Amer) POC Glucose (mg/dL) 89 Random Glucose Lactic Acid Calcium Total Bilirubin AST ALT Alkaline Phosphatase Troponin I Total Protein Albumin Globulin Albumin/Globulin Ratio Urine Opiates Screen Urine Methadone Screen Ur Barbiturates Screen Ur Phencyclidine Scrn Ur Amphetamines Screen U Benzodiazepines Scrn U Oth Cocaine Metabols U Cannabinoids Screen Alcohol, Quantitative Assessment & Plan (1) Meningioma, malignant Status: Acute (2) Recurrent seizures Status: Acute (3) Seizure disorder Status: Acute (4) Craniotomy Status: Active (5) Depressive disorder Status: Active (6) Headache Status: Active (7) Urinary tract infectious disease Status: Active (8) Meningioma Status: Acute - Assessment and Plan (Free Text) Assessment: lactic acid elevated- possibly from seizures will check cultures
[2017-04-22] MEDS: cefTRIAXone IV 1 gm in Dextros 50 ML IVPB SCH (18:01)
[2017-04-22] MEDS: Dexamethasone/Tobramycin Ophth Susp OS SCH (18:04)
[2017-04-22 18:48] LABS: RBC URINE 2 /hpf (0-3); URINE BILIRUBIN NEGATIVE (NEGATIVE); URINE BLOOD NEGATIVE (NEGATIVE); URINE COLOR YELLOW (YELLOW); URINE GLUCOSE (UA) NEG (Normal); URINE KETONE NEGATIVE (NEGATIVE); URINE LEUKOCYTE ESTERASE TRACE Leu/uL (Negative); URINE PROTEIN NEGATIVE (NEGATIVE); URINE UROBILINOGEN 0.2-1.0 mg/dL (0.2-1.0); WBC URINE 6 /hpf (0-5)
[2017-04-23] MEDS: Levothyroxine 100 MCG TAB PO SCH (06:29)
[2017-04-23] MEDS: Dexamethasone/Tobramycin Ophth Susp OS SCH ×3 (10:24→17:36)
[2017-04-23] MEDS: cefTRIAXone IV 1 gm in Dextros 50 ML IVPB SCH (10:25)
--- NOTE | 2017-04-23 12:01 | CP.PCM.PN ---
Subjective - Date & Time of Evaluation Date of Evaluation: 04/23/17 Time of Evaluation: 08:00 - Subjective Subjective: events noted s/p CARE DIRECTOR await neuro eval Objective - Vital Signs/Intake and Output Vital Signs (last 24 hours): Temp Pulse Resp BP Pulse Ox 98.4 F 74 20 95/60 L 100 04/23/17 08:25 04/23/17 08:25 04/23/17 08:25 04/23/17 08:25 04/23/17 08:25 - Medications Medications: Current Medications Alprazolam (Xanax) 2 mg PO Q12@1100,2300 [facility] Last Admin: 04/23/17 10:41 Dose: Not Given Apixaban (Eliquis) 2.5 mg PO BID [facility] PRN Reason: Protocol Last Admin: 04/23/17 10:23 Dose: 2.5 mg Atorvastatin Calcium (Lipitor) 20 mg PO DAILY [facility] Last Admin: 04/23/17 10:22 Dose: 20 mg Carbamazepine (Tegretol) 200 mg PO BID [facility] Last Admin: 04/23/17 10:23 Dose: 200 mg Hydromorphone HCl (Dilaudid) 1 mg IVP Q6 PRN PRN Reason: Pain, severe (8-10) Last Admin: 04/23/17 10:36 Dose: 1 mg Ceftriaxone Sodium (Rocephin Iv 1 Gm Duplex) 50 mls @ 50 mls/hr IVPB DAILY [facility] PRN Reason: Protocol Last Admin: 04/23/17 10:25 Dose: 50 mls/hr Levetiracetam (Keppra) 1,250 mg PO BID [facility] Last Admin: 04/23/17 10:23 Dose: 1,250 mg Levothyroxine Sodium (Synthroid) 100 mcg PO DAILY@0630 [facility] Last Admin: 04/23/17 06:29 Dose: 100 mcg Lorazepam (Ativan) 1 mg IVP Q6 PRN PRN Reason: Seizure activity Ondansetron HCl (Zofran Inj) 4 mg IVP Q6 PRN PRN Reason: Nausea/Vomiting Last Admin: 04/22/17 13:01 Dose: 4 mg Pregabalin (Lyrica) 75 mg PO TID [facility] Last Admin: 04/23/17 10:37 Dose: 75 mg Tobramycin/Dexamethasone (Tobradex Opht Susp) 1 drop OS TID [facility] Last Admin: 04/23/17 10:24 Dose: 1 drop Trazodone HCl (Desyrel) 150 mg PO HS [facility] Last Admin: 04/22/17 21:39 Dose: 150 mg - Labs Labs: 04/21/17 15:14 04/21/17 15:14 PT 13.5 Seconds (9.8-13.1) H 04/21/17 15:14 INR 1.2 (0.9-1.2) 04/21/17 15:14 APTT 36.3 Seconds (25.6-37.1) 04/21/17 15:14 Assessment and Plan (1) Meningioma, malignant Status: Acute (2) Recurrent seizures Status: Acute (3) Seizure disorder Status: Acute (4) Craniotomy Status: Active (5) Depressive disorder Status: Active (6) Headache Status: Active (7) Urinary tract infectious disease Status: Active (8) Meningioma Status: Acute
[2017-04-24] MEDS: Levothyroxine 100 MCG TAB PO SCH (06:35)
[2017-04-24 08:04] LABS: LYME DISEASE SCREEN <0.90 index
[2017-04-24] MEDS: cefTRIAXone IV 1 gm in Dextros 50 ML IVPB SCH (08:46)
[2017-04-24] MEDS: Dexamethasone/Tobramycin Ophth Susp OS SCH ×3 (08:49→17:00)
--- NOTE | 2017-04-24 10:59 | CP.PCM.PN ---
Subjective - Date & Time of Evaluation Date of Evaluation: 04/24/17 Time of Evaluation: 08:00 - Subjective Subjective: improving slowly no seizures ++ weakness Objective - Vital Signs/Intake and Output Vital Signs (last 24 hours): Temp Pulse Resp BP Pulse Ox 98.1 F 75 18 91/57 L 98 04/24/17 08:02 04/24/17 08:02 04/24/17 08:02 04/24/17 08:02 04/24/17 08:02 - Medications Medications: Current Medications Alprazolam (Xanax) 2 mg PO Q12@1100,2300 [facility] Last Admin: 04/23/17 23:35 Dose: 2 mg Apixaban (Eliquis) 2.5 mg PO BID [facility] PRN Reason: Protocol Last Admin: 04/24/17 08:48 Dose: 2.5 mg Atorvastatin Calcium (Lipitor) 20 mg PO DAILY [facility] Last Admin: 04/24/17 08:48 Dose: 20 mg Carbamazepine (Tegretol) 200 mg PO BID [facility] Last Admin: 04/24/17 08:48 Dose: 200 mg Hydromorphone HCl (Dilaudid) 1 mg IVP Q6 PRN PRN Reason: Pain, severe (8-10) Last Admin: 04/24/17 09:47 Dose: 1 mg Ceftriaxone Sodium (Rocephin Iv 1 Gm Duplex) 50 mls @ 50 mls/hr IVPB DAILY [facility] PRN Reason: Protocol Last Admin: 04/24/17 08:46 Dose: 50 mls/hr Levetiracetam (Keppra) 1,250 mg PO BID [facility] Last Admin: 04/24/17 08:47 Dose: 1,250 mg Levothyroxine Sodium (Synthroid) 100 mcg PO DAILY@0630 [facility] Last Admin: 04/24/17 06:35 Dose: 100 mcg Lorazepam (Ativan) 1 mg IVP Q6 PRN PRN Reason: Seizure activity Midodrine (Proamatine) 5 mg PO BID [facility] Ondansetron HCl (Zofran Inj) 4 mg IVP Q6 PRN PRN Reason: Nausea/Vomiting Last Admin: 04/22/17 13:01 Dose: 4 mg Pregabalin (Lyrica) 75 mg PO TID [facility] Last Admin: 04/24/17 08:59 Dose: 75 mg Tobramycin/Dexamethasone (Tobradex Opht Susp) 1 drop OS TID [facility] Last Admin: 04/24/17 08:49 Dose: 1 drop Trazodone HCl (Desyrel) 150 mg PO HS [facility] Last Admin: 04/23/17 22:03 Dose: 150 mg - Labs Labs: 04/21/17 15:14 04/21/17 15:14 PT 13.5 Seconds (9.8-13.1) H 04/21/17 15:14 INR 1.2 (0.9-1.2) 04/21/17 15:14 APTT 36.3 Seconds (25.6-37.1) 04/21/17 15:14 - Constitutional Appears: Non-toxic, Cachectic, Chronically Ill - Head Exam Head Exam: ATRAUMATIC. absent: NORMAL INSPECTION, NORMOCEPHALIC - Eye Exam Eye Exam: PERRL. absent: Scleral icterus - ENT Exam ENT Exam: Mucous Membranes Dry, Normal External Ear Exam - Neck Exam Neck Exam: absent: Lymphadenopathy - Respiratory Exam Respiratory Exam: Decreased Breath Sounds - Cardiovascular Exam Cardiovascular Exam: REGULAR RHYTHM - GI/Abdominal Exam GI & Abdominal Exam: Distended, Soft - Rectal Exam Rectal Exam: Deferred - Exam Exam: NORMAL INSPECTION - Extremities Exam Extremities Exam: absent: Pedal Edema - Back Exam Back Exam: absent: CVA tenderness (L), CVA tenderness (R) - Neurological Exam Neurological Exam: Alert, Awake, Oriented x3 - Psychiatric Exam Psychiatric exam: Depressed - Skin Skin Exam: Dry Assessment and Plan (1) Meningioma, malignant Status: Acute (2) Recurrent seizures Status: Acute (3) Seizure disorder Status: Acute (4) Craniotomy Status: Active (5) Depressive disorder Status: Active (6) Headache Status: Active (7) Urinary tract infectious disease Status: Active (8) Meningioma Status: Acute - Assessment and Plan (Free Text) Assessment: for TCU- severely deconditioned
[2017-04-24 12:34] VITALS: PULSE 76
--- NOTE | 2017-04-24 13:18 | CP.PCM.DIS ---
Provider - Provider Date of Admission: 04/21/17 15:45 Attending physician: Yariel Hancock MD Time Spent in preparation of Discharge (in minutes): 30 Diagnosis - Discharge Diagnosis (1) Seizure disorder Status: Acute (2) Lactate blood increase Status: Acute Hospital Course - Lab Results Lab Results: Micro Results 04/22/17 18:00 Urine Urine Culture - Final No Growth (<1,000 CFU/ML) 04/22/17 15:55 Blood-Venous Blood Culture - Preliminary NO GROWTH AFTER 24 HOURS 04/22/17 15:10 Blood-Venous Blood Culture - Preliminary NO GROWTH AFTER 24 HOURS Most Recent Lab Values WBC 4.9 K/uL (4.8-10.8) 04/21/17 15:14 RBC 4.08 Mil/uL (3.80-5.20) 04/21/17 15:14 Hgb 11.7 g/dL (12.0-16.0) L 04/21/17 15:14 Hct 35.9 % (34.0-47.0) 04/21/17 15:14 MCV 88.0 fl (81.0-99.0) 04/21/17 15:14 MCH 28.7 pg (27.0-31.0) 04/21/17 15:14 MCHC 32.6 g/dL (33.0-37.0) L 04/21/17 15:14 RDW 13.7 % (11.5-14.5) 04/21/17 15:14 Plt Count 220 K/uL (130-400) 04/21/17 15:14 MPV 10.1 fl (7.2-11.7) 04/21/17 15:14 Neut % (Auto) 56.1 % (50.0-75.0) 04/21/17 15:14 Lymph % (Auto) 33.4 % (20.0-40.0) 04/21/17 15:14 [place] % (Auto) 7.1 % (0.0-10.0) 04/21/17 15:14 Eos % (Auto) 2.8 % (0.0-4.0) 04/21/17 15:14 Baso % (Auto) 0.6 % (0.0-2.0) 04/21/17 15:14 Neut # 2.7 K/uL (1.8-7.0) 04/21/17 15:14 Lymph # 1.6 K/uL (1.0-4.3) 04/21/17 15:14 [place] # 0.3 K/uL (0.0-0.8) 04/21/17 15:14 Eos # 0.1 K/uL (0.0-0.7) 04/21/17 15:14 Baso # 0.0 K/uL (0.0-0.2) 04/21/17 15:14 PT 13.5 Seconds (9.8-13.1) H 04/21/17 15:14 INR 1.2 (0.9-1.2) 04/21/17 15:14 APTT 36.3 Seconds (25.6-37.1) 04/21/17 15:14 Sodium 143 mmol/l (132-148) 04/21/17 15:14 Potassium 4.2 MMOL/L (3.6-5.0) 04/21/17 15:14 Chloride 105 mmol/L (98-107) 04/21/17 15:14 Carbon Dioxide 25 mmol/L (22-30) 04/21/17 15:14 Anion Gap 18 (10-20) 04/21/17 15:14 BUN 10 mg/dl (7-17) 04/21/17 15:14 Creatinine 0.9 mg/dL (0.7-1.2) 04/21/17 15:14 Est GFR ( Amer) > 60 04/21/17 15:14 Est GFR (Non-Af Amer) > 60 04/21/17 15:14 POC Glucose (mg/dL) 95 mg/dL (65-110) 04/24/17 10:49 Random Glucose 85 mg/dL (65-105) 04/21/17 15:14 Lactic Acid 2.5 MMOL/L (0.7-2.1) H 04/21/17 15:16 Calcium 10.1 mg/dL (8.4-10.2) 04/21/17 15:14 Total Bilirubin 0.3 mg/dl (0.2-1.3) 04/21/17 15:14 AST 34 U/L (14-36) 04/21/17 15:14 ALT 38 U/L (9-52) 04/21/17 15:14 Alkaline Phosphatase 70 U/L (38-126) 04/21/17 15:14 Troponin I < 0.0120 ng/mL (0.00-0.120) 04/21/17 15:14 Total Protein 8.0 G/DL (6.3-8.2) 04/21/17 15:14 Albumin 4.4 g/dL (3.5-5.0) 04/21/17 15:14 Globulin 3.5 gm/dL (2.2-3.9) 04/21/17 15:14 Albumin/Globulin Ratio 1.2 (1.0-2.1) 04/21/17 15:14 Urine Color Yellow (YELLOW) 04/22/17 18:00 Urine Clarity Cloudy (Clear) 04/22/17 18:00 Urine pH 8.0 (5.0-8.0) 04/22/17 18:00 Ur Specific [place] 1.015 (1.003-1.030) 04/22/17 18:00 Urine Protein Negative mg/dL (NEGATIVE) 04/22/17 18:00 Urine Glucose (UA) Neg mg/dL (Normal) 04/22/17 18:00 Urine Ketones Negative mg/dL (NEGATIVE) 04/22/17 18:00 Urine Blood Negative (NEGATIVE) 04/22/17 18:00 Urine Nitrate Negative (NEGATIVE) 04/22/17 18:00 Urine Bilirubin Negative (NEGATIVE) 04/22/17 18:00 Urine Urobilinogen 0.2-1.0 mg/dL (0.2-1.0) 04/22/17 18:00 Ur Leukocyte Esterase Trace Jazmin/uL (Negative) 04/22/17 18:00 Urine RBC (Auto) 2 /hpf (0-3) 04/22/17 18:00 Urine Microscopic WBC 6 /hpf (0-5) H 04/22/17 18:00 Ur Squamous Epith Cells 1 /hpf (0-5) 04/22/17 18:00 Urine Yeast (Budding) Few /hpf (NEGATIVE) H 04/22/17 18:00 Urine Opiates Screen Positive (NEGATIVE) H 04/21/17 19:08 Urine Methadone Screen Negative (NEGATIVE) 04/21/17 19:08 Ur Barbiturates Screen Negative (NEGATIVE) 04/21/17 19:08 Ur Phencyclidine Scrn Negative (NEGATIVE) 04/21/17 19:08 Ur Amphetamines Screen Negative (NEGATIVE) 04/21/17 19:08 U Benzodiazepines Scrn Positive (NEGATIVE) 04/21/17 19:08 U Oth Cocaine Metabols Negative (NEGATIVE) 04/21/17 19:08 U Cannabinoids Screen Negative (NEGATIVE) 04/21/17 19:08 Alcohol, Quantitative < 10 mg/dl (0-10) 04/21/17 15:14 Lyme Disease Screen <0.90 index 04/22/17 14:30 - Hospital Course Hospital Course: 51 YO F was admitted after she had an eppisode of seizures. Patient was noted to have increase levels of lactate which is moslt likely secondary to the seizures. However patient had been complaining of fever and chills recently. ID was consulted. Patient was started on IV antibiotics. Patient appears to be deconditioned, will transfer to TCU for IV antibiotics and reconditioning. Discharge Exam - Head Exam Head Exam: ATRAUMATIC. absent: NORMAL INSPECTION, NORMOCEPHALIC - Eye Exam Eye Exam: EOMI, PERRL - Respiratory Exam Respiratory Exam: Decreased Breath Sounds - Cardiovascular Exam Cardiovascular Exam: REGULAR RHYTHM, +S1, +S2 - GI/Abdominal Exam GI & Abdominal Exam: Diminished Bowel Sounds, Soft - Neurological Exam Neurological exam: CN II-XII Intact - Skin Skin Exam: Dry, Warm Discharge Plan - Discharge Medications Prescriptions: cefTRIAXone 1 gm [Rocephin 1 gram IVPB] 1 gm IVPB DAILY #5 bag - Follow Up Plan Condition: FAIR Additional Instructions: pt. cleared for discharge to TCU today by and cont. Rocephin 1gm iv daily x 1 week f/u with and - Referrals: Yariel Hancock MD [Staff Provider] - Po Melchor MD [Family Provider] -
[2017-04-24 16:45] VITALS: BP 104/69; RESP 14; TEMP 97.6; O2SAT 99
== END 2017-04-24 17:30 | DRG 101 ==
LOC: H.ER 14:11 → H.ERHOLD 15:45 → H.TEL 21:53
PROVIDERS: ADMIT Family Medicine; ATTEND Family Medicine
DX: G40.909 Epilepsy, unspecified, not intractable, without status epilepticus (principal); C70.9 Malignant neoplasm of meninges, unspecified; N39.0 Urinary tract infection, site not specified; E11.22 Type 2 diabetes mellitus with diabetic chronic kidney disease; G93.89 Other specified disorders of brain; G89.4 Chronic pain syndrome; I12.9 Hypertensive chronic kidney disease with stage 1 through stage 4 chronic kidney disease, or unspecified chronic kidney disease; N18.9 Chronic kidney disease, unspecified; E03.9 Hypothyroidism, unspecified; I25.10 Atherosclerotic heart disease of native coronary artery without angina pectoris; M06.9 Rheumatoid arthritis, unspecified; J45.909 Unspecified asthma, uncomplicated; E78.00 Pure hypercholesterolemia, unspecified; D64.9 Anemia, unspecified; F32.9 Major depressive disorder, single episode, unspecified; Z95.0 Presence of cardiac pacemaker; Z79.01 Long term (current) use of anticoagulants; Z86.011 Personal history of benign neoplasm of the brain; Z87.442 Personal history of urinary calculi; Z90.710 Acquired absence of both cervix and uterus

== ENCOUNTER 2017-04-24 14:08 | Inpatient (IN) | payer OTHER ==
[2017-04-24 17:45] VITALS: BMI 18.6
[2017-04-24 18:53] VITALS: RESP 20
[2017-04-24] MEDS ORDERED: Tuberculin 5 Units/0.1 ml Inj ID ONE (19:01)
[2017-04-24] MEDS: Oxycodone/Acetaminophen 5/325 mg Tab PO PRN (21:45)
[2017-04-25] MEDS: Levothyroxine 100 MCG TAB PO SCH (06:33)
[2017-04-25] MEDS: Oxycodone/Acetaminophen 5/325 mg Tab PO PRN ×3 (06:50→20:56)
[2017-04-25] MEDS: Dexamethasone/Tobramycin Ophth Susp OS SCH ×3 (09:00→18:11)
[2017-04-25] MEDS ORDERED: cefTRIAXone IV 1 gm in Dextros 50 ML BAG IVPB SCH (09:00)
[2017-04-25] MEDS: cefTRIAXone IV 1 gm in Dextros 50 ML IVPB SCH (17:01)
--- NOTE | 2017-04-25 17:07 | CP.PCM.HP ---
History of Present Illness - History of Present Illness History of Present Illness: This is a 51 y/o female with hx of meningioma and seizure and recurrent headaches was admitted for recurrence of seizure despite being on medications. She had also complained of recent chills w/o fever. Patient was on tele. Since patient has cancer and was immunocompromised with a elevated lactate level she was put on IV antibiotics and transfered to TCU. Present on Admission - Present on Admission Any Indicators Present on Admission: No Past Patient History - Infectious Disease Hx of Infectious Diseases: None - Tetanus Immunizations Tetanus Immunization: Unknown - Past Medical History & Family History Past Medical History?: Yes - Past Social History Smoking Status: Never Smoked - CARDIAC Hx Cardiac Disorders: Yes Hx Hypercholesterolemia: Yes Hx Hypertension: Yes Hx Pacemaker: Yes - PULMONARY Hx Respiratory Disorders: Yes Hx Asthma: Yes - NEUROLOGICAL Hx Neurological Disorder: Yes Hx Seizures: Yes (recurrent) Other/Comment: Malignant Meningioma - HEENT Hx HEENT Problems: No - RENAL Hx Chronic Kidney Disease: Yes - ENDOCRINE/METABOLIC Hx Endocrine Disorders: Yes Hx Diabetes Mellitus Type 2: Yes - HEMATOLOGICAL/ONCOLOGICAL Hx Blood Disorders: Yes Hx AIDS: No Hx Human Immunodeficiency Virus (HIV): No - INTEGUMENTARY Hx Dermatological Problems: No - MUSCULOSKELETAL/RHEUMATOLOGICAL Hx Arthritis: Yes Hx Falls: No Hx Fractures: No Hx Osteoporosis: No Hx Rheumatoid Arthritis: Yes - GASTROINTESTINAL Hx Crohn's Disease: No Hx Diverticulitis: No Hx Gall Bladder Disease: No Hx Gastritis: No Hx Pancreatitis: No - GENITOURINARY/GYNECOLOGICAL Hx Sexually Transmitted Disorders: No - PSYCHIATRIC Hx Anxiety: Yes Hx Bipolar Disorder: No Hx Depression: Yes Hx Post Traumatic Stress Disorder: No Hx Schizophrenia: No Hx Substance Use: No - SURGICAL HISTORY Hx Appendectomy: No Hx Carotid Endarterectomy: No Hx Cholecystectomy: No Hx Coronary Artery Bypass Graft: No Hx Coronary Stent: No Hx Hysterectomy: Yes Hx Tonsillectomy: Yes - ANESTHESIA Hx Anesthesia: Yes Hx Anesthesia Reactions: No Hx Malignant Hyperthermia: No Meds Allergies/Adverse Reactions: Allergies Allergy/AdvReac Type Severity Reaction Status Date / Time seasonal Allergy CONGESTION Uncoded 04/24/17 17:42 Physical Exam - Constitutional Appears: No Acute Distress - Head Exam Head Exam: NORMAL INSPECTION - Eye Exam Eye Exam: Normal appearance - Respiratory Exam Respiratory Exam: Clear to Auscultation Bilateral. absent: Rhonchi, Wheezes - Cardiovascular Exam Cardiovascular Exam: REGULAR RHYTHM, +S1, +S2 - Extremities Exam Extremities exam: Negative for: calf tenderness - Neurological Exam Neurological exam: Alert, CN II-XII Intact, Oriented x3 - Skin Skin Exam: Normal Color, Warm Results - Vital Signs Recent Vital Signs: Last Vital Signs Temp 98.2 F 04/25/17 08:34 Pulse 70 04/25/17 14:39 Resp 20 04/25/17 08:34 BP 86/56 L 04/25/17 08:34 Pulse Ox 99 04/25/17 14:39 - Labs Labs: Laboratory Results - last 24 hr 04/24/17 04/25/17 04/25/17 20:36 05:40 10:35 POC Glucose (mg/dL) 116 H 93 112 H Assessment & Plan - Assessment and Plan (Free Text) Assessment: 1) Elevated lactate levels: Could be secondary to infective cause or secondary to patients seizures - Ceftriaxone IV antibiotics - ID consult appreciated 2) HLD: Lipitor 3) Constipation - Lactulose - Colase - Senokot - phosphate enema ordered today (one) 4) Seizure - Keppra 5) Hypothyroidism - Levothyroxine 6) DVT PPX - SCD ordered and encouraged ambulation - Lovenox will be placed after metabolic panel labs are received
--- NOTE | 2017-04-25 17:27 | CP.PCM.CON ---
History of Present Illness - History of Present Illness History of Present Illness: 51 y/o female with hx of meningioma and seizure and recurrent headaches was admitted for recurrence of seizure despite being on medications. She had also complained of recent chills w/o fever. Patient was on tele. Since patient has cancer and was immunocompromised with a elevated lactate level she was put on IV antibiotics and transfered to TCU. Review of Systems - Constitutional Constitutional: As Per HPI - EENT Eyes: absent: As Per HPI, Blind Spots, Blurred Vision, Change in Vision, Decreased Night Vision, Diplopia, Discharge, Dry Eye, Exophthalmos, Floaters, Irritation, Itchy Eyes, Loss of Peripheral Vision, Pain, Photophobia, Requires Corrective Lenses, Sees Flashes, Spots in Vision, Tunnel Vision, Other Visual Disturbances, Loss of Vision, Other Ears: absent: As Per HPI, Decreased Hearing, Ear Discharge, Ear Pain, Tinnitus, Abnormal Hearing, Disequilibrium, Dizziness, Other Nose/Mouth/Throat: absent: As Per HPI, Epistaxis, Nasal Congestion, Nasal Discharge, Nasal Obstruction, Nasal Trauma, Nose Pain, Post Nasal Drip, Sinus Pain, Sinus Pressure, Bleeding Gums, Change in Voice, Dental Pain, Dry Mouth, Dysphagia, Halitosis, Hoarsness, Lip Swelling, Mouth Lesions, Mouth Pain, Odynophagia, Sore Throat, Throat Swelling, Tongue Swelling, Facial Pain, Neck Pain, Neck Mass, Other - Breasts Breasts: absent: As Per HPI, Change in Shape, Mass, Pain, Nipple Discharge, Nipple Inversion, Skin Changes, Swelling, Other - Cardiovascular Cardiovascular: absent: As Per HPI, Acrocyanosis, Chest Pain, Chest Pain at Rest , Chest Pain with Activity, Claudication, Diaphoresis, Dyspnea, Dyspnea on Exertion, Edema, Irregular Heart Rhythm, Pain Radiating to Arm/Neck/Jaw, Leg Edema, Leg Ulcers, Lightheadedness, Orthopnea, Palpitations, Paroxysmal Nocturnal Dyspnea, Pedal Edema, Radiating Pain, Rapid Heart Rate, Slow Heart Rate, Syncope, Other - Respiratory Respiratory: absent: As Per HPI, Cough, Dyspnea, Hemoptysis, Dyspnea on Exertion , Wheezing, Snoring, Stridor, Pain on Inspiration, Chest Congestion, Excessive Mucous Production, Change in Mucous Color, Pain with Coughing, Other - Gastrointestinal Gastrointestinal: absent: As Per HPI, Abdominal Pain, Belching, Bloating, Change in Bowel Habits, Change in Stool Character, Coffee Ground Emesis, Constipation, Cramping, Diarrhea, Dyspepsia, Dysphagia, Early Satiety, Excessive Flatus, Fecal Incontinence, Heartburn, Hematemesis, Hematochezia, Loose Stools, Melena, Nausea, Odynophagia, Temesmus, Vomiting, Other - Genitourinary Genitourinary: absent: As Per HPI, Change in Urinary Stream, Difficulty Urinating, Dysuria, Flank Pain, Hematuria, Pyuria, Nocturia, Urinary Incontinence, Urinary Frequency, Urinary Hesitance, Urinary Urgency, Voiding Freq/Small Amts, Freq UTI, Hx Renal/Bladder Calculi, Hx /Renal Surgery, Bladder Distension, Other - Reproductive: Female Reproductive:Female: absent: As Per HPI, Amenorrhea, Amenorrhea/ Control, Currently Menstual, Cycle <21 Days, Cycle >35 Days, Cycle Variable, Menses 1-7 Days, Menses >/= 8 Days, Menses Variable, Cycle > 4 Weeks Between, No Menses for 6 Months, Heavy Menses, Light Menses, Normal Menses, Spotting Between Cycles , S/P Hysterectomy, Menopausal, Post Menopausal, Premenarche, Abnormal Vaginal Bleeding, Dysmenorrhea, Dyspareunia, Genital Lesions, Genital Pruritis, Pelvic Pain, Prolapse Symptoms, Sexual Dysfunction, Vaginal Discharge, Vaginal Dryness , Vaginal Odor, Vaginal Pruritis, Other - Menstruation Menstruation: absent: As Per HPI, Amenorrhea, Amenorrhea/ Control, Currently Menstual, Cycle <21 Days, Cycle >35 Days, Cycle Variable, Menses 1-7 Days, Menses >/= 8 Days, Menses Variable, Cycle > 4 Weeks Between, No Menses for 6 Months, Heavy Menses, Light Menses, Normal Menses, Spotting Between Cycles , S/P Hysterectomy, Menopausal, Post Menopausal, Premenarche, Abnormal Vaginal Bleeding, Dysmenorrhea, Other - Musculoskeletal Musculoskeletal: As Per HPI - Integumentary Integumentary: absent: As Per HPI, Acne, Alopecia, Bleeding Lesions, Change in Hair, Change in Nails, Change in Pigmentation, Changing Lesions, Dry Skin, Erythema, Furuncle, Hirsutism, Lesions, New Lesions, Non-Healing Lesions, Photosensitivity, Pruritus, Rash, Skin Pain, Skin Ulcer, Sores, Striae, Swelling , Unusual Bruising, Wounds, Jaundice, Other - Neurological Neurological: As Per HPI - Psychiatric Psychiatric: As Per HPI - Endocrine Endocrine: absent: As Per HPI, Change in Body Appearance, Change in Libido, Cold Intolorance, Deepening of Voice, Excessive Sweating, Fatigue, Flushing, Heat Intolorance, Increase in Ring/Shoe/Hat Size, Palpitations, Polydipsia, Polyphagia, Polyuria, Other - Hematologic/Lymphatic Hematologic: absent: As Per HPI, Easy Bleeding, Easy Bruising, Lymphadenopathy, Other Past Patient History - Infectious Disease Hx of Infectious Diseases: None - Tetanus Immunizations Tetanus Immunization: Unknown - Past Medical History & Family History Past Medical History?: Yes - Past Social History Smoking Status: Never Smoked - CARDIAC Hx Cardiac Disorders: Yes Hx Hypercholesterolemia: Yes Hx Hypertension: Yes Hx Pacemaker: Yes - PULMONARY Hx Respiratory Disorders: Yes Hx Asthma: Yes - NEUROLOGICAL Hx Neurological Disorder: Yes Hx Seizures: Yes (recurrent) Other/Comment: Malignant Meningioma - HEENT Hx HEENT Problems: No - RENAL Hx Chronic Kidney Disease: Yes - ENDOCRINE/METABOLIC Hx Endocrine Disorders: Yes Hx Diabetes Mellitus Type 2: Yes - HEMATOLOGICAL/ONCOLOGICAL Hx Blood Disorders: Yes Hx AIDS: No Hx Human Immunodeficiency Virus (HIV): No - INTEGUMENTARY Hx Dermatological Problems: No - MUSCULOSKELETAL/RHEUMATOLOGICAL Hx Arthritis: Yes Hx Falls: No Hx Fractures: No Hx Osteoporosis: No Hx Rheumatoid Arthritis: Yes - GASTROINTESTINAL Hx Crohn's Disease: No Hx Diverticulitis: No Hx Gall Bladder Disease: No Hx Gastritis: No Hx Pancreatitis: No - GENITOURINARY/GYNECOLOGICAL Hx Sexually Transmitted Disorders: No - PSYCHIATRIC Hx Anxiety: Yes Hx Bipolar Disorder: No Hx Depression: Yes Hx Post Traumatic Stress Disorder: No Hx Schizophrenia: No Hx Substance Use: No - SURGICAL HISTORY Hx Appendectomy: No Hx Carotid Endarterectomy: No Hx Cholecystectomy: No Hx Coronary Artery Bypass Graft: No Hx Coronary Stent: No Hx Hysterectomy: Yes Hx Tonsillectomy: Yes - ANESTHESIA Hx Anesthesia: Yes Hx Anesthesia Reactions: No Hx Malignant Hyperthermia: No Meds Allergies/Adverse Reactions: Allergies Allergy/AdvReac Type Severity Reaction Status Date / Time seasonal Allergy CONGESTION Uncoded 04/24/17 17:42 - Medications Medications: Current Medications Alprazolam (Xanax) 2 mg PO Q12@1100,2300 [facility] Last Admin: 04/25/17 12:33 Dose: 2 mg Apixaban (Eliquis) 2.5 mg PO BID [facility] PRN Reason: Protocol Last Admin: 04/25/17 17:04 Dose: 2.5 mg Atorvastatin Calcium (Lipitor) 20 mg PO DAILY [facility] Last Admin: 04/25/17 08:58 Dose: 20 mg Carbamazepine (Tegretol) 200 mg PO BID [facility] Last Admin: 04/25/17 17:03 Dose: 200 mg Docusate Sodium (Colace) 100 mg PO BID [facility] Last Admin: 04/25/17 17:08 Dose: 100 mg Ceftriaxone Sodium (Rocephin Iv 1 Gm Duplex) 50 mls @ 50 mls/hr IVPB DAILY@ 1700 [facility] Last Admin: 04/25/17 17:01 Dose: 50 mls/hr Lactulose (Enulose) 20 gm PO DAILY PRN PRN Reason: Constipation Levetiracetam (Keppra) 1,000 mg PO BID [facility] Last Admin: 04/25/17 17:03 Dose: 1,000 mg Levetiracetam (Keppra) 250 mg PO BID [facility] Last Admin: 04/25/17 17:03 Dose: 250 mg Levothyroxine Sodium (Synthroid) 100 mcg PO DAILY@0630 [facility] Last Admin: 04/25/17 06:33 Dose: 100 mcg Lorazepam (Ativan) 1 mg IVP Q6 PRN PRN Reason: Seizure activity Midodrine (Proamatine) 5 mg PO BID [facility] Last Admin: 04/25/17 17:04 Dose: 5 mg Ondansetron HCl (Zofran Inj) 4 mg IVP Q6 PRN PRN Reason: Nausea/Vomiting Oxycodone/Acetaminophen (Percocet 5/325 Mg Tab) 1 tab PO Q4 PRN PRN Reason: Pain, moderate (4-7) Stop: 04/27/17 21:35 Last Admin: 04/25/17 14:23 Dose: 1 tab Pregabalin (Lyrica) 75 mg PO TID [facility] Last Admin: 04/25/17 14:14 Dose: 75 mg Sennosides (Senokot Tab) 17.2 mg PO HS [facility] Tobramycin/Dexamethasone (Tobradex Opht Susp) 1 drop OS TID [facility] Last Admin: 04/25/17 12:34 Dose: 1 drop Trazodone HCl (Desyrel) 150 mg PO HS [facility] Last Admin: 04/24/17 21:38 Dose: 150 mg Physical Exam - Constitutional Appears: Non-toxic, Cachectic, Chronically Ill - Head Exam Head Exam: NORMOCEPHALIC - Eye Exam Eye Exam: PERRL - ENT Exam ENT Exam: Mucous Membranes Dry - Neck Exam Neck exam: Negative for: Lymphadenopathy, Thyromegaly - Respiratory Exam Respiratory Exam: Decreased Breath Sounds, Clear to Auscultation Bilateral - Cardiovascular Exam Cardiovascular Exam: REGULAR RHYTHM - GI/Abdominal Exam GI & Abdominal Exam: Diminished Bowel Sounds, Soft. absent: Tenderness - Rectal Exam Rectal Exam: Deferred - Exam Exam: NORMAL INSPECTION - Extremities Exam Extremities exam: Negative for: pedal edema, tenderness - Back Exam Back exam: absent: CVA tenderness (L), CVA tenderness (R) - Neurological Exam Neurological exam: Alert, CN II-XII Intact, Oriented x3, Reflexes Normal - Psychiatric Exam Psychiatric exam: Depressed Results - Vital Signs Recent Vital Signs: Last Vital Signs Temp 96.8 F L 04/25/17 17:19 Pulse 73 04/25/17 17:19 Resp 20 04/25/17 17:19 BP 96/59 L 04/25/17 17:19 Pulse Ox 100 04/25/17 17:19 - Labs Labs: Laboratory Results - last 24 hr 04/24/17 04/25/17 04/25/17 20:36 05:40 10:35 POC Glucose (mg/dL) 116 H 93 112 H Assessment & Plan (1) Craniotomy Status: Active (2) Depressive disorder Status: Active (3) Headache Status: Active (4) Mass of head Status: Active
[2017-04-26] MEDS: Levothyroxine 100 MCG TAB PO SCH (05:57)
[2017-04-26 06:15] LABS: ALB/GLOB RATIO 1.2 (1.0-2.1); ALKALINE PHOSPHATASE 48 U/L (38-126); ALT/SGPT 32 U/L (9-52); AST/SGOT 28 U/L (14-36); BILIRUBIN,TOTAL < 0.1 mg/dl (0.2-1.3); BLOOD UREA NITROGEN 11 mg/dl (7-17); CARBON DIOXIDE 28 mmol/L (22-30); CHLORIDE 99 mmol/L (98-107); GFR AFRICAN-AMERICAN > 60; GLUCOSE,RANDOM 84 mg/dL (65-105); POTASSIUM 4.3 MMOL/L (3.6-5.0); SODIUM 135 mmol/l (132-148); TOTAL PROTEIN 6.4 G/DL (6.3-8.2)
[2017-04-26] MEDS: Dexamethasone/Tobramycin Ophth Susp OS SCH ×3 (08:27→16:17)
[2017-04-26] MEDS: Oxycodone/Acetaminophen 5/325 mg Tab PO PRN ×3 (08:30→22:02)
--- NOTE | 2017-04-26 09:55 | CP.PCM.PN ---
Subjective - Date & Time of Evaluation Date of Evaluation: 04/26/17 Time of Evaluation: 09:54 - Subjective Subjective: patient feels a lot better Has no seizure has no fever. lactic acid is 1.4 Objective - Vital Signs/Intake and Output Vital Signs (last 24 hours): Temp Pulse Resp BP Pulse Ox 97.9 F 80 20 95/58 L 99 04/26/17 08:00 04/26/17 08:00 04/26/17 08:00 04/26/17 08:00 04/26/17 08:00 - Medications Medications: Current Medications Alprazolam (Xanax) 2 mg PO Q12@1100,2300 [facility] Last Admin: 04/25/17 22:02 Dose: 2 mg Apixaban (Eliquis) 2.5 mg PO BID [facility] PRN Reason: Protocol Last Admin: 04/26/17 08:25 Dose: 2.5 mg Atorvastatin Calcium (Lipitor) 20 mg PO DAILY [facility] Last Admin: 04/26/17 08:26 Dose: 20 mg Carbamazepine (Tegretol) 200 mg PO BID [facility] Last Admin: 04/26/17 08:26 Dose: 200 mg Docusate Sodium (Colace) 100 mg PO BID [facility] Last Admin: 04/26/17 08:25 Dose: 100 mg Ceftriaxone Sodium (Rocephin Iv 1 Gm Duplex) 50 mls @ 50 mls/hr IVPB DAILY@ 1700 [facility] Last Admin: 04/25/17 17:01 Dose: 50 mls/hr Lactulose (Enulose) 20 gm PO DAILY PRN PRN Reason: Constipation Levetiracetam (Keppra) 1,000 mg PO BID [facility] Last Admin: 04/26/17 08:26 Dose: 1,000 mg Levetiracetam (Keppra) 250 mg PO BID [facility] Last Admin: 04/26/17 08:26 Dose: 250 mg Levothyroxine Sodium (Synthroid) 100 mcg PO DAILY@0630 [facility] Last Admin: 04/26/17 05:57 Dose: 100 mcg Lorazepam (Ativan) 1 mg IVP Q6 PRN PRN Reason: Seizure activity Midodrine (Proamatine) 5 mg PO BID [facility] Last Admin: 04/26/17 08:26 Dose: 5 mg Ondansetron HCl (Zofran Inj) 4 mg IVP Q6 PRN PRN Reason: Nausea/Vomiting Oxycodone/Acetaminophen (Percocet 5/325 Mg Tab) 1 tab PO Q4 PRN PRN Reason: Pain, moderate (4-7) Stop: 04/27/17 21:35 Last Admin: 04/26/17 08:30 Dose: 1 tab Pregabalin (Lyrica) 75 mg PO TID [facility] Last Admin: 04/26/17 08:28 Dose: 75 mg Sennosides (Senokot Tab) 17.2 mg PO [facility] Last Admin: 04/26/17 00:21 Dose: Not Given Tobramycin/Dexamethasone (Tobradex Opht Susp) 1 drop OS TID [facility] Last Admin: 04/26/17 08:27 Dose: 1 drop Trazodone HCl (Desyrel) 150 mg PO [facility] Last Admin: 04/25/17 22:04 Dose: 150 mg - Labs Labs: 04/26/17 05:20
[2017-04-26] MEDS: cefTRIAXone IV 1 gm in Dextros 50 ML IVPB SCH (16:16)
[2017-04-27] MEDS: Oxycodone/Acetaminophen 5/325 mg Tab PO PRN ×4 (03:59→20:34)
[2017-04-27] MEDS: Levothyroxine 100 MCG TAB PO SCH (06:33)
[2017-04-27] MEDS: Dexamethasone/Tobramycin Ophth Susp OS SCH ×3 (08:53→17:55)
[2017-04-27] MEDS ORDERED: Sodium Chloride 0.9% 1,000 ML IV SCH (10:00)
--- NOTE | 2017-04-27 11:02 | CP.PCM.DIS ---
Provider - Provider Date of Admission: 04/24/17 17:45 Attending physician: Yariel Hancock MD Time Spent in preparation of Discharge (in minutes): 30 Diagnosis - Discharge Diagnosis (1) Seizure Status: Acute Hospital Course - Lab Results Lab Results: Most Recent Lab Values Sodium 135 mmol/l (132-148) 04/26/17 05:20 Potassium 4.3 MMOL/L (3.6-5.0) 04/26/17 05:20 Chloride 99 mmol/L (98-107) 04/26/17 05:20 Carbon Dioxide 28 mmol/L (22-30) 04/26/17 05:20 Anion Gap 13 (10-20) 04/26/17 05:20 BUN 11 mg/dl (7-17) 04/26/17 05:20 Creatinine 0.8 mg/dL (0.7-1.2) 04/26/17 05:20 Est GFR ( Amer) > 60 04/26/17 05:20 Est GFR (Non-Af Amer) > 60 04/26/17 05:20 POC Glucose (mg/dL) 117 mg/dL (65-110) H 04/27/17 10:35 Random Glucose 84 mg/dL (65-105) 04/26/17 05:20 Lactic Acid 1.4 MMOL/L (0.7-2.1) 04/26/17 05:20 Calcium 9.0 mg/dL (8.4-10.2) 04/26/17 05:20 Total Bilirubin < 0.1 mg/dl (0.2-1.3) L 04/26/17 05:20 AST 28 U/L (14-36) 04/26/17 05:20 ALT 32 U/L (9-52) 04/26/17 05:20 Alkaline Phosphatase 48 U/L (38-126) 04/26/17 05:20 Lactate Dehydrogenase 560 U/L (313-618) 04/26/17 05:20 Total Protein 6.4 G/DL (6.3-8.2) 04/26/17 05:20 Albumin 3.5 g/dL (3.5-5.0) D 04/26/17 05:20 Globulin 2.9 gm/dL (2.2-3.9) 04/26/17 05:20 Albumin/Globulin Ratio 1.2 (1.0-2.1) 04/26/17 05:20 - Hospital Course Hospital Course: 1) Elevated lactate levels: Could be secondary to infective cause or secondary to patients seizures - Ceftriaxone IV antibiotics while in the hospital, then patient was transfered to TCU for completing course of antibiotics - ID consult appreciated 2) HLD: Lipitor 4) Seizure - Keppra - Carbamazapine 5) Hypothyroidism - Levothyroxine - Patient is feeling well today. Appears comfortable and stable for discharge Discharge Exam - Head Exam Head Exam: NORMOCEPHALIC - Eye Exam Eye Exam: Normal appearance - Respiratory Exam Respiratory Exam: Clear to PA & Lateral, NORMAL BREATHING PATTERN. absent: Rhonchi, Wheezes - Cardiovascular Exam Cardiovascular Exam: REGULAR RHYTHM, +S1, +S2 - GI/Abdominal Exam GI & Abdominal Exam: Normal Bowel Sounds, Soft. absent: Tenderness - Neurological Exam Neurological exam: Alert, CN II-XII Intact, Oriented x3 - Skin Skin Exam: Normal Color, Warm Discharge Plan - Discharge Medications Prescriptions: carBAMazepine [Tegretol] 200 mg PO BID #60 tab levETIRAcetam [Keppra] 250 mg PO BID #60 tab - Follow Up Plan Condition: GOOD Disposition: HOME/ ROUTINE Additional Instructions: Follow up with PMD in 1 week after discharge. If symptoms worsen or reoccur please return to the ER.
--- NOTE | 2017-04-27 12:40 | CP.PCM.PN ---
Subjective - Date & Time of Evaluation Date of Evaluation: 04/27/17 Time of Evaluation: 06:00 - Subjective Subjective: afeb c/o pain fatigue and weakness Objective - Vital Signs/Intake and Output Vital Signs (last 24 hours): Temp Pulse Resp BP Pulse Ox 97 F L 68 20 86/59 L 93 L 04/27/17 08:32 04/27/17 08:32 04/27/17 08:32 04/27/17 08:32 04/27/17 08:32 - Medications Medications: Current Medications Alprazolam (Xanax) 2 mg PO Q12@1100,2300 [facility] Last Admin: 04/27/17 00:02 Dose: 2 mg Apixaban (Eliquis) 2.5 mg PO BID [facility] PRN Reason: Protocol Last Admin: 04/27/17 08:54 Dose: 2.5 mg Atorvastatin Calcium (Lipitor) 20 mg PO DAILY [facility] Last Admin: 04/27/17 08:54 Dose: 20 mg Carbamazepine (Tegretol) 200 mg PO BID [facility] Last Admin: 04/27/17 08:54 Dose: 200 mg Docusate Sodium (Colace) 100 mg PO BID [facility] Last Admin: 04/27/17 08:54 Dose: 100 mg Ceftriaxone Sodium (Rocephin Iv 1 Gm Duplex) 50 mls @ 50 mls/hr IVPB DAILY@ 1700 [facility] Last Admin: 04/26/17 16:16 Dose: 50 mls/hr Sodium Chloride (Sodium Chloride 0.9%) 1,000 mls @ 100 mls/hr IV .Q10H [facility] Stop: 04/28/17 09:54 Lactulose (Enulose) 20 gm PO DAILY PRN PRN Reason: Constipation Levetiracetam (Keppra) 1,000 mg PO BID [facility] Last Admin: 04/27/17 08:54 Dose: 1,000 mg Levetiracetam (Keppra) 250 mg PO BID [facility] Last Admin: 04/27/17 08:54 Dose: 250 mg Levothyroxine Sodium (Synthroid) 100 mcg PO DAILY@0630 [facility] Last Admin: 04/27/17 06:33 Dose: 100 mcg Lorazepam (Ativan) 1 mg IVP Q6 PRN PRN Reason: Seizure activity Midodrine (Proamatine) 5 mg PO BID [facility] Last Admin: 04/27/17 08:54 Dose: 5 mg Ondansetron HCl (Zofran Inj) 4 mg IVP Q6 PRN PRN Reason: Nausea/Vomiting Oxycodone/Acetaminophen (Percocet 5/325 Mg Tab) 1 tab PO Q4 PRN PRN Reason: Pain, moderate (4-7) Stop: 04/27/17 21:35 Last Admin: 04/27/17 10:03 Dose: 1 tab Pregabalin (Lyrica) 75 mg PO TID [facility] Last Admin: 04/27/17 10:02 Dose: 75 mg Sennosides (Senokot Tab) 17.2 mg PO [facility] Last Admin: 04/27/17 00:30 Dose: Not Given Tobramycin/Dexamethasone (Tobradex Opht Susp) 1 drop OS TID [facility] Last Admin: 04/27/17 08:53 Dose: 1 drop Trazodone HCl (Desyrel) 150 mg PO [facility] Last Admin: 04/26/17 22:01 Dose: 150 mg - Labs Labs: 04/26/17 05:20 - Constitutional Appears: Non-toxic, Cachectic, Chronically Ill - Eye Exam Eye Exam: EOMI, PERRL - ENT Exam ENT Exam: Mucous Membranes Dry - Neck Exam Neck Exam: absent: Lymphadenopathy - Respiratory Exam Respiratory Exam: Decreased Breath Sounds - Cardiovascular Exam Cardiovascular Exam: REGULAR RHYTHM - GI/Abdominal Exam GI & Abdominal Exam: Distended, Soft - Rectal Exam Rectal Exam: Deferred - Exam Exam: NORMAL INSPECTION - Back Exam Back Exam: absent: CVA tenderness (L), CVA tenderness (R) - Neurological Exam Neurological Exam: Alert, Awake - Psychiatric Exam Psychiatric exam: Depressed - Skin Skin Exam: Dry Assessment and Plan (1) Craniotomy Status: Active (2) Depressive disorder Status: Active (3) Headache Status: Active (4) Mass of head Status: Active - Assessment and Plan (Free Text) Assessment: appears depressed consider psych consult
[2017-04-27 15:54] VITALS: BP 86/57; PULSE 66; TEMP 97.3; O2SAT 100
[2017-04-27] MEDS: cefTRIAXone IV 1 gm in Dextros 50 ML IVPB SCH (18:02)
[2017-04-27] MEDS ORDERED: Lorazepam 2 mg/ml (10ml) Sol IVPB STA (21:34)
[2017-04-27] MEDS ORDERED: Lorazepam 2 mg/ml (10ml) Sol IV ONE (21:42)
--- NOTE | 2017-04-27 22:10 | PCM.RRT ---
I.Reason for [employer] - A) Acute Change in Patient: Subjective: [employer] Start Time: 9:30 [employer] Location: TCU 70-2 [employer] Reason: Active Seizure S: [employer] called by RN because patient was having a seizure episode. On arrival pt was noted to have jerking of her upper extremities with eyes open and was non verbal on NC 3L. O: Vitals BP 135/77 HR 87 T 98.1 O2sat: 100% POCG 111 [employer] Interventions: 1. 2mg Ativan IVP x1 2. CBC 3. CMP Assessment: 51 y/o female with PMHx of Meningioma and Seizure disorder with active seizure. Plan: Transferred to ED for further management. F/u on labs [employer] led by Dr. Brenda Rebolledo
== END 2017-04-27 22:07 | disposition short-term general hospital (02) | DRG 101 ==
LOC: H.TCU 17:45
PROVIDERS: ADMIT Family Medicine; ATTEND Family Medicine
PROC: 3E03329 Introduction of Other Anti-infective into Peripheral Vein, Percutaneous Approach (ICD-10-PCS; principal; 2017-04-24)
PROC: F08Z4FZ Home Management Treatment using Assistive, Adaptive, Supportive or Protective Equipment (ICD-10-PCS; 2017-04-24)
DX: G40.909 Epilepsy, unspecified, not intractable, without status epilepticus (principal); E11.22 Type 2 diabetes mellitus with diabetic chronic kidney disease; E03.9 Hypothyroidism, unspecified; E78.00 Pure hypercholesterolemia, unspecified; E78.5 Hyperlipidemia, unspecified; F32.9 Major depressive disorder, single episode, unspecified; I12.9 Hypertensive chronic kidney disease with stage 1 through stage 4 chronic kidney disease, or unspecified chronic kidney disease; J45.909 Unspecified asthma, uncomplicated; K59.00 Constipation, unspecified; M06.9 Rheumatoid arthritis, unspecified; N18.9 Chronic kidney disease, unspecified; Z86.011 Personal history of benign neoplasm of the brain; Z90.710 Acquired absence of both cervix and uterus; Z95.0 Presence of cardiac pacemaker; F41.9 Anxiety disorder, unspecified; M19.90 Unspecified osteoarthritis, unspecified site

== ENCOUNTER 2017-08-14 10:48 | Observation (INO) | payer MEDICARE, OTHER ==
[2017-08-14 10:48] VITALS: BMI 18.5
--- NOTE | 2017-08-14 11:44 | ED PDOC ---
HPI: General Adult Time Seen by Provider: 08/14/17 11:43 Chief Complaint (Nursing): Weakness/Neurological Deficit Chief Complaint (Provider): weakness History Per: Patient Additional Complaint(s): 52-year-old female with history of meningioma, recurrent headaches and seizure disorder presents to emergency department with headache status post having seizure last night. Patient also complains of generalized weakness. Patient denies fever or chills. She states that when she woke up this morning she felt unsteady on her feet. Patient does use a cane and walker from time to time to help with ambulation. She has any nausea or vomiting. Patient has mild blurred vision since seizure yesterday. Patient does not remember having seizure but was told by her boyfriend that she had one before going to bed yesterday. PMD: Dr. Melchor Past Medical History Reviewed: Historical Data, Nursing Documentation, Vital Signs Vital Signs: Last Vital Signs Temp 97.9 F 08/14/17 14:01 Pulse 68 08/14/17 14:01 Resp 16 08/14/17 14:01 BP 101/59 L 08/14/17 14:01 Pulse Ox 100 08/14/17 16:48 - Medical History PMH: Anemia, Anxiety, Arthritis, Asthma, CAD, Depression, Diabetes, Gall Bladder Disease, HTN, Hypercholesterolemia, Hypothyroidism, Kidney Stones, Malignancy (Malignant meningioma), Chronic Kidney Disease, Rheumatoid Arthritis , Schizophrenia, Seizures (recurrent), Sickle Cell Disease, Sleep Apnea - Surgical History Surgical History: Pacemaker, Tonsillectomy Other surgeries: several cranial surgeries for tumor removal - Family History Family History: States: No Known Family Hx - Living Arrangements Living Arrangements: With Friends/Others - Social History Current smoker - smoking cessation education provided: No Alcohol: Occasional Drugs: Denies - Home Medications Home Medications: Ambulatory Orders Medication Instructions Recorded Acetaminophen/Oxycodone Hydr 1 tab PO Q4 01/21/17 [Percocet 10/325 mg Tab] Levothyroxine [Synthroid] 100 mcg PO DAILY 01/21/17 Linaclotide [Linzess] 145 mcg PO DAILY 01/21/17 Oxycodone HCl [Oxycontin] 10 mg PO Q8 PRN 01/21/17 Pregabalin [Lyrica] 75 mg PO TID 01/21/17 Apixaban [Eliquis] 2.5 mg PO BID #60 tablet 01/24/17 ALPRAZolam [Xanax] 2 mg PO Q12@1100,2300 tab 04/24/17 Atorvastatin [Lipitor] 20 mg PO DAILY tab 04/24/17 Dexamethasone/Tobramycin [Tobradex 1 drop OS TID bottle 04/24/17 Opht Susp] Midodrine [Proamatine] 5 mg PO BID tab 04/24/17 traZODone [Desyrel] 150 mg PO HS tab 04/24/17 Docusate [Colace] 100 mg PO BID cap 04/27/17 carBAMazepine [Tegretol] 200 mg PO BID #60 tab 04/27/17 Levetiracetam [Keppra] 1,250 mg PO BID #60 tablet 05/01/17 - Allergies Allergies/Adverse Reactions: Allergies Allergy/AdvReac Type Severity Reaction Status Date / Time seasonal Allergy CONGESTION Uncoded 08/14/17 10:54 Review of Systems ROS Statement: Except As Marked, All Systems Reviewed And Found Negative Constitutional: Positive for: Weakness. Negative for: Fever, Chills Eyes: Positive for: Vision Change (blurry vision) Cardiovascular: Negative for: Chest Pain Respiratory: Negative for: Cough, Shortness of Breath Gastrointestinal: Negative for: Nausea, Vomiting Neurological: Positive for: Weakness, Seizures, Headache. Negative for: Incoordination, Change in Speech, Confusion, Dizziness Physical Exam - Reviewed Nursing Documentation Reviewed: Yes Vital Signs Reviewed: Yes - Physical Exam Appears: Positive for: Well, Non-toxic, No Acute Distress Head Exam: Negative for: NORMAL INSPECTION (left frontal and temporal deformity noted from previous surgeries) Skin: Negative for: Rash Eye Exam: Positive for: Normal appearance ENT: Positive for: Normal ENT Inspection Neck: Positive for: Normal Cardiovascular/Chest: Positive for: Regular Rate, Rhythm Respiratory: Positive for: Normal Breath Sounds. Negative for: Respiratory Distress Neurologic/Psych: Positive for: Alert, project manager/team coach II-XII (grossly intact), Oriented. Negative for: Motor/Sensory Deficits, Aphasia, Facial Droop - Laboratory Results Result Diagrams: 08/14/17 13:40 08/14/17 13:40 - ECG Interpretation Of ECG: NSR 72 bpm, no acute finding, reviewed by PA and ED attending O2 Sat by Pulse Oximetry: 100 Pulse Ox Interpretation: Normal - Other Rad CT head X-Ray: Read By Radiologist X-Ray Interpretation: no acute finding, no interval change bedside chest X-Ray: Viewed By Me, Read By Radiologist X-Ray Interpretation: no acute finding Medical Decision Making Medical Decision Makin52 year old with headache and seizure Plan: CT head CBC CMP Flu swab IVF IV zofran IV dilaudid EKG CXR PMD is Dr. Melchor, he states to have Dr. Hancock admit patient. Dr. Hancock made aware, states to admit to med/surg Patient is aware of and agrees with admission. Case was also discussed with Dr. Funk, patient's neurologist. He states to give patient 1 g IV Keppra. He will see patient in AM. Disposition - Clinical Impression Clinical Impression: Seizure disorder, Headache, Acute weakness - Patient ED Disposition Is Patient to be Admitted: Yes - Disposition Disposition Time: 16:47 Condition: FAIR Instructions: Weakness (ED) Forms: [employer] (Icelandic) - Pt Status Changed To: Hospital Disposition Of: Observation - POA Present On Arrival: None Results - Lab Results Lab Results: 08/14/17 08/14/17 08/14/17 14:00 13:40 13:40 WBC 3.8 L RBC 3.95 Hgb 11.1 L Hct 34.0 MCV 86.1 MCH 28.0 MCHC 32.6 L RDW 13.0 Plt Count 205 MPV 10.5 Neut % (Auto) 44.2 L Lymph % (Auto) 44.6 H [place] % (Auto) 8.5 Eos % (Auto) 2.3 Baso % (Auto) 0.4 Neut # (Auto) 1.7 L Lymph # (Auto) 1.7 [place] # (Auto) 0.3 Eos # (Auto) 0.1 Baso # (Auto) 0.0 Sodium 143 Potassium 4.8 Chloride 107 Carbon Dioxide 25 Anion Gap 16 BUN 12 Creatinine 0.9 Est GFR ( Amer) > 60 Est GFR (Non-Af Amer) > 60 Random Glucose 83 Calcium 9.3 Total Bilirubin 0.3 AST 37 H D ALT 43 Alkaline Phosphatase 68 Total Protein 7.6 Albumin 4.0 Globulin 3.5 Albumin/Globulin Ratio 1.1 Carbamazepine Influenza Typ A,B (EIA) Negative for flu a/b 08/14/17 13:40 WBC RBC Hgb Hct MCV MCH MCHC RDW Plt Count MPV Neut % (Auto) Lymph % (Auto) [place] % (Auto) Eos % (Auto) Baso % (Auto) Neut # (Auto) Lymph # (Auto) [place] # (Auto) Eos # (Auto) Baso # (Auto) Sodium Potassium Chloride Carbon Dioxide Anion Gap BUN Creatinine Est GFR ( Amer) Est GFR (Non-Af Amer) Random Glucose Calcium Total Bilirubin AST ALT Alkaline Phosphatase Total Protein Albumin Globulin Albumin/Globulin Ratio Carbamazepine 13.9 H Influenza Typ A,B (EIA)
[2017-08-14] MEDS ORDERED: Sodium Chloride 0.9% 1,000 ML IV STA (12:18)
--- NOTE | 2017-08-14 13:07 | CT ---
PROCEDURE: CT HEAD WITHOUT CONTRAST. HISTORY: headache, seizure last night COMPARISON: CT head dated 04/27/2017. TECHNIQUE: Axial computed tomography images were obtained through the head/brain without intravenous contrast. Radiation dose: Total exam DLP = 840.4 mGy-cm. This CT exam was performed using one or more of the following dose reduction techniques: Automated exposure control, adjustment of the mA and/or kV according to patient size, and/or use of iterative reconstruction technique. FINDINGS: HEMORRHAGE: No intracranial hemorrhage. BRAIN: Left temporal encephalomalacia redemonstrated. No atrophy or chronic microvascular ischemic changes. VENTRICLES: Unremarkable. No hydrocephalus. CALVARIUM: Left petrous ridge meningioma redemonstrated. Prior left frontal craniotomy and temporal craniectomy PARANASAL SINUSES: Unremarkable as visualized. No significant inflammatory changes. MASTOID AIR CELLS: Partial left mastoidectomy. OTHER FINDINGS: None. IMPRESSION: No acute intracranial pathology. Additional stable findings as above.
[2017-08-14 13:51] LABS: BASO % 0.4 % (0.0-2.0); EOS # 0.1 K/uL (0.0-0.7); EOS % 2.3 % (0.0-4.0); HEMOGLOBIN 11.1 g/dL (12.0-16.0); LYMPH # 1.7 K/uL (1.0-4.3); LYMPH % 44.6 % (20.0-40.0); MEAN CELL VOLUME 86.1 fl (81.0-99.0); MEAN CORPUSCULAR HGB CONC 32.6 g/dL (33.0-37.0); MEAN PLATELET VOLUME 10.5 fl (7.2-11.7); MONO # 0.3 K/uL (0.0-0.8); MONO % 8.5 % (0.0-10.0); NEUT # 1.7 K/uL (1.8-7.0); NEUT % 44.2 % (50.0-75.0); NRBC % 0.1 % (0.0-0.0); RBC 3.95 Mil/uL (3.80-5.20); WHITE BLOOD COUNT 3.8 K/uL (4.8-10.8)
--- NOTE | 2017-08-14 13:59 | RAD ---
HISTORY: clearance COMPARISON: Chest radiograph dated 04/21/2017. FINDINGS: LUNGS: No active pulmonary disease. PLEURA: No significant pleural effusion identified, no pneumothorax apparent. CARDIOVASCULAR: Left subclavian access pacemaker redemonstrated. Cardiomediastinal silhouette within normal limits. OSSEOUS STRUCTURES: Unchanged. VISUALIZED UPPER ABDOMEN: Normal. OTHER FINDINGS: None. IMPRESSION: No active disease.
[2017-08-14 14:39] LABS: ALB/GLOB RATIO 1.1 (1.0-2.1); ALT/SGPT 43 U/L (9-52); AST/SGOT 37 U/L (14-36); BLOOD UREA NITROGEN 12 mg/dl (7-17); CALCIUM 9.3 mg/dL (8.4-10.2); GFR AFRICAN-AMERICAN > 60; GFR NON-AFRICAN AMERICAN > 60
[2017-08-14] MEDS ORDERED: levETIRAcetam 1,000 MG in Sodium Chloride 0.9% 100 ML IVPB ONE (16:51)
[2017-08-15] MEDS ORDERED: LEVETIRACETAM PO SCH (00:45)
[2017-08-15] MEDS: Levothyroxine 100 MCG TAB PO SCH (11:48)
[2017-08-15] MEDS ORDERED: Valproate 500 MG in Sodium Chloride 0.9% 100 ML IVPB ONE (11:54)
--- NOTE | 2017-08-15 14:29 | CARD ---
APPROVED REPORT EKG Measurement Heart [id number] <Conclusion> Normal sinus rhythm Normal ECG
--- NOTE | 2017-08-15 14:30 | CP.PCM.HP ---
History of Present Illness - History of Present Illness History of Present Illness: 52 YO F with h/o meningioma, recurrent headaches and seizure disorder presented to the ER after no feeling well and having a seizure. States she just feels weak however denies any fever, chills, nausea or vomiting. Patient was told by her boyfriend she had a seizure before going to sleep two nights ago but denies any bowl or bladder incontinence during the episode. Patient states she has been taking her medication regularly. She recently had an EEG done with her neurologist Dr. Funk and he had recommended her to follow up in [place] and see a neurosurgeon, but patient did not follow up. PMD: Dr. Melchor Present on Admission - Present on Admission Any Indicators Present on Admission: No Past Patient History - Infectious Disease Hx of Infectious Diseases: None - Tetanus Immunizations Tetanus Immunization: Unknown - Past Medical History & Family History Past Medical History?: Yes - Past Social History Smoking Status: Never Smoked - CARDIAC Hx Cardiac Disorders: Yes Hx Hypercholesterolemia: Yes Hx Hypertension: Yes Hx Pacemaker: Yes - PULMONARY Hx Respiratory Disorders: Yes Hx Asthma: Yes Hx Sleep Apnea: Yes - NEUROLOGICAL Hx Neurological Disorder: Yes Hx Seizures: Yes (recurrent) - HEENT Hx HEENT Problems: Yes - RENAL Hx Chronic Kidney Disease: No - ENDOCRINE/METABOLIC Hx Endocrine Disorders: Yes Hx Diabetes Mellitus Type 2: Yes Hx Hypothyroidism: Yes - HEMATOLOGICAL/ONCOLOGICAL Hx Blood Disorders: Yes Hx Anemia: Yes - INTEGUMENTARY Hx Dermatological Problems: No - MUSCULOSKELETAL/RHEUMATOLOGICAL Hx Musculoskeletal Disorders: Yes Hx Arthritis: Yes Hx Falls: No - GASTROINTESTINAL Hx Gastrointestinal Disorders: Yes Hx Gall Bladder Disease: Yes - GENITOURINARY/GYNECOLOGICAL Hx Genitourinary Disorders: No Hx Sexually Transmitted Disorders: No - PSYCHIATRIC Hx Psychophysiologic Disorder: Yes Hx Anxiety: Yes Hx Substance Use: No - SURGICAL HISTORY Hx Surgeries: Yes Hx Tonsillectomy: Yes Other/Comment: pacemaker,cranial surgery - ANESTHESIA Hx Anesthesia: Yes Hx Anesthesia Reactions: No Hx Malignant Hyperthermia: No Has any member of the family had a problem w/ anesthesia?: No Meds Allergies/Adverse Reactions: Allergies Allergy/AdvReac Type Severity Reaction Status Date / Time seasonal Allergy CONGESTION Uncoded 08/14/17 10:54 Physical Exam - Constitutional Appears: No Acute Distress - Head Exam Head Exam: ATRAUMATIC - Eye Exam Eye Exam: Normal appearance - ENT Exam ENT Exam: Mucous Membranes Dry - Respiratory Exam Respiratory Exam: Clear to Auscultation Bilateral, NORMAL BREATHING PATTERN. absent: Rhonchi, Wheezes - Cardiovascular Exam Cardiovascular Exam: REGULAR RHYTHM, +S1, +S2 - GI/Abdominal Exam GI & Abdominal Exam: Normal Bowel Sounds, Soft. absent: Tenderness - Neurological Exam Neurological exam: Alert, CN II-XII Intact, Oriented x3 - Skin Skin Exam: Normal Color, Warm Results - Vital Signs Recent Vital Signs: Last Vital Signs Temp 98.6 F 08/15/17 13:00 Pulse 72 08/15/17 13:00 Resp 18 08/15/17 13:00 BP 109/70 08/15/17 13:00 Pulse Ox 95 08/15/17 13:00 - Labs Result Diagrams: 08/14/17 13:40 08/14/17 13:40 Labs: Laboratory Results - last 24 hr 08/14/17 08/14/17 08/14/17 13:40 13:40 14:00 Sodium 143 Potassium 4.8 Chloride 107 Carbon Dioxide 25 Anion Gap 16 BUN 12 Creatinine 0.9 Est GFR ( Amer) > 60 Est GFR (Non-Af Amer) > 60 Random Glucose 83 Calcium 9.3 Total Bilirubin 0.3 AST 37 H D ALT 43 Alkaline Phosphatase 68 Total Protein 7.6 Albumin 4.0 Globulin 3.5 Albumin/Globulin Ratio 1.1 Carbamazepine 13.9 H Influenza Typ A,B (EIA) Negative for flu a/b Assessment & Plan - Assessment and Plan (Free Text) Assessment: 52 Y/O F presents with a recurrent episode of seizures while being on appropriate treatment 1) Breakthrough seizure - C/W IV fluids - Neuro consulted - Decrease Tegretol dosage to 200 BID. - Increase Kepra to 1500 BID 2) Migraine - Depacon 500 mg slowly infused over 60 min. + Zofran 4mg. + Toradol 50mg 3) DVT prophylaxis - Lovenox - Date & Time Date: 08/15/17 Time: 14:41
[2017-08-15] MEDS: Oxycodone/Acetaminophen 5/325 mg Tab PO PRN ×2 (16:30→21:07)
--- NOTE | 2017-08-15 19:07 | CON ---
NEUROLOGY CONSULT DATE: 08/15/2017 CHIEF COMPLAINT: Seizures. HISTORY OF PRESENT ILLNESS: This is a 52-year-old woman who is well known to my office with past medical history of chronic pain syndrome, anxiety, hypertension, pacemaker, hypothyroidism, rheumatoid arthritis, hyperlipidemia, type 2 diabetes mellitus, malignant meningioma diagnosed in 1999 and have undergone multiple resections and revisions, which had seizure disorder, resolved the meningioma and where her CAT scan of the head shows left temporal encephalomalacia where the meningioma was, her EEG done on 07/04/2017 which was 48-hour ambulatory EEG did show presence of intermittent frontotemporal rhythmic activity with slowing thrill, which is consistent with her seizure activity from where it originates. Currently, no further seizures. Her blood pressures are systolically and diastolically low ever since she got admitted and she has very poor p.o. intake at home. Her headaches are more of an occipital neuralgia, for which she is on Lyrica 75 p.o. b.i.d. and not on any narcotics, which we want to avoid all narcotics. She is going to see neurosurgeon this at her office for epilepsy and for underlying history of her meningioma and seizure control. She was on Keppra 1250 p.o. b.i.d., we will increase it to 1500 mg p.o. b.i.d. now and reduce the Tegretol to 200 p.o. t.i.d. to 200 p.o. b.i.d. No further focal seizures. Case discussed with family at bedside. PAST MEDICAL HISTORY: Occipital neuralgia, history of malignant meningioma, status post multiple resections and revisions resulted in seizures, pacemaker, hypothyroidism, rheumatoid arthritis, hyperlipidemia, and type 2 diabetes mellitus. REVIEW OF SYSTEMS: A 14-point review of systems negative except in the HPI. FAMILY HISTORY: Noncontributory. SOCIAL HISTORY: No illicit drug use, smoking, or EtOH abuse. ALLERGIES: ALLERGIC TO SEASONAL ALLERGIES. MEDICATIONS: Reviewed by nurse reconciliation sheet. LABORATORY DATA: Carbamazepine level 13.9,which is elevated. Sodium is 143, potassium is 4.8, chloride is 107, carbon dioxide is 25, BUN is 12, creatinine is 0.9, and random glucose is 83. PHYSICAL EXAMINATION: GENERAL: The patient is seen up in bed, in no acute distress. VITAL SIGNS: Temperature 98.5, pulse rate 67, blood pressure 99/61, respiratory rate 18, and oxygen saturation 100% on room air. HEENT: Atraumatic and normocephalic. PERRLA. Extraocular muscles intact. NECK: Supple. No JVD. No adenopathy. LUNGS: Clear to auscultation. No adventitious sounds. HEART: S1 and S2. Normal rate and rhythm. No murmurs, rubs, or gallops. ABDOMEN: Soft, nontender, and nondistended. Bowel sounds are present. EXTREMITIES: No clubbing. No cyanosis. Peripheral pulses are 2+ felt bilaterally. NEUROLOGIC: The patient is alert and oriented to person, place, month, and year. Speech is fluent without errors, flat and effective state. Attention and thought process is slow and insight and judgment are appropriate. Immediate recall is 0/3 after 5 minutes and recent and past memory is normal. Cranial nerves II-XII are intact. Motor exam moves all extremities equally. Sensory exam decreased light tough and pinprick up to the calves bilaterally. Decreased vibration of the toes. DTRs are 2+ throughout. Coordination, [id number] intact. Rapid alternating movements are intact. Deep tendon reflexes are 1+ throughout and toes are downgoing bilaterally. No dysmetria. Gait is deferred for now. ASSESSMENT AND PLAN: This is a 52-year-old woman with history of chronic pain syndrome, anxiety, hypertension, pacemaker, hypothyroidism, rheumatoid arthritis, hyperlipidemia, type 2 diabetes mellitus, malignant meningioma diagnosed in 1999, have undergone multiple resections and revisions, which has resulted in seizure disorder and has resolved meningioma, on Keppra 1250 p.o. b.i.d. and Tegretol 200 p.o. t.i.d. as well as Lyrica for neuropathic pain for occipital neuralgia. At this time, she had breakthrough seizures secondary to transient cerebral hypoperfusion to the brain as well as poor p.o. intake and sleep deprivation. At this time, recommend: 1. Sleep hygiene. 2. Increase her Keppra to 1500 mg p.o. b.i.d. and decrease her Tegretol to 200 p.o. b.i.d. since her Tegretol level is slightly elevated. 3. Monitor electrolytes and correct accordingly. 4. I advised adequate hydration throughout the day since her systolic blood pressure is on the lower side. 5. She has [facility] and we will follow up with the neurosurgeon for further intervention of epilepsy intervention. 6. Continue with Lyrica 75 mg p.o. b.i.d. for neuropathic relief and continue current measures. She will see me back in my office in 2 weeks. Thank you for this consult and she is clinically stable. Tomas Funk MD
[2017-08-16 08:08] VITALS: O2SAT 98
[2017-08-16] MEDS: Levothyroxine 100 MCG TAB PO SCH (08:55)
[2017-08-16] MEDS: Oxycodone/Acetaminophen 5/325 mg Tab PO PRN (13:51)
--- NOTE | 2017-08-16 15:07 | CP.PCM.DIS ---
Provider - Provider Date of Admission: 08/14/17 16:47 Attending physician: Yariel Hancock MD Time Spent in preparation of Discharge (in minutes): 30 Diagnosis - Discharge Diagnosis (1) Seizure disorder Status: Chronic Hospital Course - Lab Results Lab Results: Most Recent Lab Values WBC 3.8 K/uL (4.8-10.8) L 08/14/17 13:40 RBC 3.95 Mil/uL (3.80-5.20) 08/14/17 13:40 Hgb 11.1 g/dL (12.0-16.0) L 08/14/17 13:40 Hct 34.0 % (34.0-47.0) 08/14/17 13:40 MCV 86.1 fl (81.0-99.0) 08/14/17 13:40 MCH 28.0 pg (27.0-31.0) 08/14/17 13:40 MCHC 32.6 g/dL (33.0-37.0) L 08/14/17 13:40 RDW 13.0 % (11.5-14.5) 08/14/17 13:40 Plt Count 205 K/uL (130-400) 08/14/17 13:40 MPV 10.5 fl (7.2-11.7) 08/14/17 13:40 Neut % (Auto) 44.2 % (50.0-75.0) L 08/14/17 13:40 Lymph % (Auto) 44.6 % (20.0-40.0) H 08/14/17 13:40 [place] % (Auto) 8.5 % (0.0-10.0) 08/14/17 13:40 Eos % (Auto) 2.3 % (0.0-4.0) 08/14/17 13:40 Baso % (Auto) 0.4 % (0.0-2.0) 08/14/17 13:40 Neut # (Auto) 1.7 K/uL (1.8-7.0) L 08/14/17 13:40 Lymph # (Auto) 1.7 K/uL (1.0-4.3) 08/14/17 13:40 [place] # (Auto) 0.3 K/uL (0.0-0.8) 08/14/17 13:40 Eos # (Auto) 0.1 K/uL (0.0-0.7) 08/14/17 13:40 Baso # (Auto) 0.0 K/uL (0.0-0.2) 08/14/17 13:40 Sodium 143 mmol/l (132-148) 08/14/17 13:40 Potassium 4.8 MMOL/L (3.6-5.0) 08/14/17 13:40 Chloride 107 mmol/L (98-107) 08/14/17 13:40 Carbon Dioxide 25 mmol/L (22-30) 08/14/17 13:40 Anion Gap 16 (10-20) 08/14/17 13:40 BUN 12 mg/dl (7-17) 08/14/17 13:40 Creatinine 0.9 mg/dl (0.7-1.2) 08/14/17 13:40 Est GFR ( Amer) > 60 08/14/17 13:40 Est GFR (Non-Af Amer) > 60 08/14/17 13:40 Random Glucose 83 mg/dL (65-105) 08/14/17 13:40 Calcium 9.3 mg/dL (8.4-10.2) 08/14/17 13:40 Total Bilirubin 0.3 mg/dl (0.2-1.3) 08/14/17 13:40 AST 37 U/L (14-36) H D 08/14/17 13:40 ALT 43 U/L (9-52) 08/14/17 13:40 Alkaline Phosphatase 68 U/L (38-126) 08/14/17 13:40 Total Protein 7.6 G/DL (6.3-8.2) 08/14/17 13:40 Albumin 4.0 g/dL (3.5-5.0) 08/14/17 13:40 Globulin 3.5 gm/dL (2.2-3.9) 08/14/17 13:40 Albumin/Globulin Ratio 1.1 (1.0-2.1) 08/14/17 13:40 Carbamazepine 13.9 ug/mL (4.0-12.0) H 08/14/17 13:40 Influenza Typ A,B (EIA) Negative for flu a/b (NEGATIVE) 08/14/17 14:00 - Hospital Course Hospital Course: 52 Y/O F presents with a recurrent episode of seizures while being on appropriate treatment 1) Breakthrough seizure most likely secondary to hypoperfusion secondary to dehydration - Encourage hydration - Neuro consulted - Decrease Tegretol dosage to 200 BID. - Increase Kepra to 1500 BID -F/U with neurosurgery on . F/ U with Dr. Funk neurology in 2-3 days. - Patient stable for discharge Discharge Exam - Head Exam Head Exam: ATRAUMATIC - Eye Exam Eye Exam: Normal appearance - Respiratory Exam Respiratory Exam: Clear to PA & Lateral, NORMAL BREATHING PATTERN. absent: Rales, Rhonchi, Wheezes - Cardiovascular Exam Cardiovascular Exam: REGULAR RHYTHM, +S1, +S2 - Neurological Exam Neurological exam: Alert, CN II-XII Intact, Oriented x3 - Skin Skin Exam: Normal Color, Warm Discharge Plan - Discharge Medications Prescriptions: carBAMazepine [Tegretol] 200 mg PO Q12 #60 tab levETIRAcetam [Keppra] 1,500 mg PO Q12 #60 tab - Follow Up Plan Condition: FAIR Disposition: HOME/ ROUTINE Instructions: Epilepsy (DC), Weakness (ED), Acute Headache (DC) Referrals: Tomas Funk MD [Staff Provider] - Po Melchor MD [Family Provider] -
[2017-08-16 16:57] VITALS: BP 110/71; PULSE 74; RESP 14; TEMP 98.4
[2017-08-16] MEDS ORDERED: Fluticasone-Salmeterol 100-50mcg Diskus IH SCH (20:00)
[2017-08-17] MEDS ORDERED: Levothyroxine 100 MCG TAB PO SCH (06:30)
[2017-08-17 15:06] LABS: LEVETIRACETAM 60.9 mcg/mL
--- NOTE | 2017-08-17 19:16 | CARD ---
APPROVED REPORT EKG Measurement Heart [id number] <Conclusion> Sinus rhythm with 1st degree AV block Otherwise normal ECG
[2017-08-19] MEDS ORDERED: Ergocalciferol 50,000 Intl Units Cap PO SCH (09:00)
== END 2017-08-16 18:24 | disposition home or self-care (01) ==
LOC: H.ER 10:48 → H.ERHOLD 16:47 → H.TEL 22:44
PROVIDERS: ADMIT Family Medicine; ATTEND Family Medicine
DX: G40.909 Epilepsy, unspecified, not intractable, without status epilepticus (principal); E86.0 Dehydration; D57.1 Sickle-cell disease without crisis; E11.22 Type 2 diabetes mellitus with diabetic chronic kidney disease; E03.9 Hypothyroidism, unspecified; E78.5 Hyperlipidemia, unspecified; E78.00 Pure hypercholesterolemia, unspecified; G43.909 Migraine, unspecified, not intractable, without status migrainosus; G89.4 Chronic pain syndrome; F20.9 Schizophrenia, unspecified; G47.30 Sleep apnea, unspecified; I12.9 Hypertensive chronic kidney disease with stage 1 through stage 4 chronic kidney disease, or unspecified chronic kidney disease; I25.10 Atherosclerotic heart disease of native coronary artery without angina pectoris; N18.9 Chronic kidney disease, unspecified; F32.9 Major depressive disorder, single episode, unspecified; M06.9 Rheumatoid arthritis, unspecified; J45.909 Unspecified asthma, uncomplicated; M54.81 Occipital neuralgia; Z79.01 Long term (current) use of anticoagulants; Z85.848 Personal history of malignant neoplasm of other parts of nervous tissue; Z86.011 Personal history of benign neoplasm of the brain; Z87.442 Personal history of urinary calculi; Z95.0 Presence of cardiac pacemaker
CPT/HCPCS: 70450; 71045; 80053; 80156; 80299; 85025; 87804; 93005; 96374; 99285; G0378; J1170; J1953; J2060; J2405; J7040

== ENCOUNTER 2018-07-31 14:09 | Inpatient (IN) | payer MEDICARE, OTHER ==
[2018-07-31 14:09] VITALS: BMI 18.5
--- NOTE | 2018-07-31 15:39 | ED PDOC ---
HPI: Seizure Time Seen by Provider: 07/31/18 14:30 Chief Complaint (Nursing): Seizure Chief Complaint (Provider): Seizure History Per: Patient, Family History/Exam Limitations: no limitations Number Of Seizures: Multiple Length Of Seizures (Duration): Seconds (30) Additional Complaint(s): Zully Longoria is a 53 year old female, with a past medical history of seizures, w ho was brought to the emergency department by EMS due to recurrent seizures noted by homemaker as well as a seizure while in ED witnessed by nurse. Seizures were of the upper extremities and lasting about x30 secs. After cessation of seizures, patient was immediately awake, alert and responsive. Unclear if patient is compliant with her anti-seizure medications of Tegretol and Keppra. Patient states she had a brain tumor at [facility] x2 weeks ago, however she has no surgical scars noted on scalp. Patient denies any fever, chills, headache or other medical complaints. PMD: Po Melchor Past Medical History Reviewed: Historical Data, Nursing Documentation, Vital Signs Vital Signs: Last Vital Signs Temp 98.0 F 07/31/18 14:36 Pulse 85 07/31/18 14:36 Resp 20 07/31/18 14:36 BP 109/59 L 07/31/18 14:36 Pulse Ox 100 07/31/18 14:36 - Medical History PMH: Anemia, Anxiety, Arthritis, Asthma, CAD, Depression, Diabetes, Gall Bladder Disease, HTN, Hypercholesterolemia, Hypothyroidism, Kidney Stones, Malignancy (Malignant meningioma), Chronic Kidney Disease, Rheumatoid Arthritis, Schizophrenia, Seizures (recurrent), Sickle Cell Disease, Sleep Apnea Denies: Alzheimer's Disease, Atrial Fibrillation, Bipolar Disorder, Bronchitis, Cardia Arrhythmia, CHF, COPD, Crohn's Disease, Dementia, Diverticulitis, Emphysema, Fractures, Gastritis, HIV, Hyperthyroidism, Migraine, Mitral Valve Prolapse, Multiple Sclerosis, Osteoporosis, Pancreatitis, Paranoia, Parkinson's Disease, Peripheral Edema, Pneumonia, Post Traumatic Stress Disorder, Pulmonary Embolism, Sexually Transmitted Disease, TIA - Surgical History Surgical History: Pacemaker (LEFT CHEST WALL), Tonsillectomy Denies: Appendectomy, CABG, Carotid Endarterectomy, Cholecystectomy, Coronary Stent - Family History Family History: States: Unknown Family Hx - Social History Current smoker - smoking cessation education provided: No Alcohol: None Drugs: Denies - Immunization History Hx Tetanus Toxoid Vaccination: No Hx Influenza Vaccination: No Hx Pneumococcal Vaccination: No - Home Medications Home Medications: Ambulatory Orders Medication Instructions Recorded Levothyroxine [Synthroid] 100 mcg PO DAILY 01/21/17 Pregabalin [Lyrica] 75 mg PO QAM 01/21/17 Midodrine [Proamatine] 5 mg PO BID tab 04/24/17 traZODone [Desyrel] 150 mg PO HS tab 04/24/17 ALPRAZolam [Xanax] 2 mg PO Q12 08/14/17 Dulaglutide [Trulicity] 1.5 mg SC SUN 08/14/17 Ergocalciferol (Vitamin D2) 50,000 unit PO SUN 08/14/17 [Vitamin D2] Fluticasone/Vilanterol [Breo 1 puff IH DAILY 08/14/17 Ellipta 100-25 Mcg INH] Lubiprostone [Amitiza] 24 mcg PO BID PRN 08/14/17 Rosuvastatin Calcium [Crestor] 10 mg PO HS 08/14/17 Zolpidem [Ambien] 10 mg PO HS 08/14/17 carBAMazepine [Tegretol] 200 mg PO Q12 #60 tab 08/16/17 Levetiracetam 1,500 mg PO Q12 07/31/18 Montelukast [Singulair] 10 mg PO HS 07/31/18 Pregabalin [Lyrica] 100 mg PO HS 07/31/18 oxyCODONE/Acetaminophen [Percocet 1 tab PO Q4 PRN 07/31/18 5/325 mg Tab] - Allergies Allergies/Adverse Reactions: Allergies Allergy/AdvReac Type Severity Reaction Status Date / Time seasonal Allergy CONGESTION Uncoded 07/31/18 14:12 Review of Systems ROS Statement: Except As Marked, All Systems Reviewed And Found Negative Constitutional: Negative for: Fever, Chills Neurological: Positive for: Seizures. Negative for: Headache Physical Exam - Reviewed Nursing Documentation Reviewed: Yes Vital Signs Reviewed: Yes - Physical Exam Appears: Positive for: No Acute Distress Head Exam: Positive for: ATRAUMATIC, NORMAL INSPECTION, NORMOCEPHALIC Skin: Positive for: Normal Color, Warm, Dry Eye Exam: Positive for: Normal appearance, EOMI, PERRL ENT: Positive for: Normal ENT Inspection Neck: Positive for: Normal, Painless ROM, Supple Cardiovascular/Chest: Positive for: Regular Rate, Rhythm. Negative for: Murmur Respiratory: Positive for: Normal Breath Sounds. Negative for: Respiratory Distress Gastrointestinal/Abdominal: Positive for: Normal Exam, Soft. Negative for: Tenderness, Guarding, Rebound Back: Positive for: Normal Inspection. Negative for: L CVA Tenderness, R CVA Tenderness, Vertebral Tenderness Extremity: Positive for: Normal ROM (upper and lower extremities). Negative for: Tenderness, Deformity, Swelling Neurologic/Psych: Positive for: Alert, policy services representative II-XII (intact), Oriented (x3), Cerebellar Tests (normal). Negative for: Motor/Sensory Deficits (No focal deficits), Aphasia, Facial Droop - ECG O2 Sat by Pulse Oximetry: 100 (RA) Pulse Ox Interpretation: Normal Medical Decision Making Medical Decision Making: Time: 14:30 Initial Impression: Seizure disorder and recurrent, unclear if due to noncompliance. Will take CT Initial Plan: --Head w/o contrast [CT] --EKG --CMP --Magnesium --Valproic acid --CBC w/ differential --Chest portable [RAD] --Levetiracetam --Reevaluation CXR FINDINGS: LUNGS: No active pulmonary disease. Bilateral hyperaeration-as before. PLEURA: No significant pleural effusion identified, no pneumothorax apparent. CARDIOVASCULAR: No aortic atherosclerotic calcification present. Normal cardiac size. No pulmonary vascular congestion. Single lead pacemaker device in place appears satisfactory no change OSSEOUS STRUCTURES: Partly visualized is a metallic hardware local spine fusion plate VISUALIZED UPPER ABDOMEN: Normal. OTHER FINDINGS: None. IMPRESSION: No active disease. No interval pathology noted. 15:[address] FINDINGS: HEMORRHAGE: No intracranial hemorrhage. BRAIN: The prior posterior left petrous ridge sessile extra-axial mass compatible with a meningioma here is similar with the 2016 image. There is some mass effect on the left anterior cerebral peduncle. This is not changed.The similar hyperdensity in the left internal auditory canal region is also similar and compatible with this same pathology. No interval hemorrhage seen. the left temporal lobe encephalomalacia and atrophy appear similar. VENTRICLES: Unremarkable. No hydrocephalus. CALVARIUM: The extensive left fronto temporal and left temporal occipital craniectomy changes The prior partial resection of the temporal left mastoid air cells is hree noted. Some probable wax in the left external auditory canal is similar in appearance as well PARANASAL SINUSES: Minimal ethmoidal sinus mucosal thickening inflammatory changes small concomitant retention cyst here possible. Findings of the right are more extensive than MASTOID AIR CELLS: Postsurgical changes stable in the left as above.. No inflammatory changes. Previously. OTHER FINDINGS: None. IMPRESSION: No interval hemorrhage seen. The left posterior petrous ridge extra-axial hyperdense mass are compatible with a meningioma here. The current mass effect on the left anterior cerebral peduncle is similar to the prior studies. Including 2016 study. No new areas of mass effect seen. Of the hyperdensity in the left internal auditory canal region also compatible with meningioma appearance as well. Extensive postsurgical changes-craniectomy changes and mostly left temporal lobe encephalomalacia changes these findings appear similar to prior studies. Scribe Attestation: Documented by Juvencio Bentley, acting as a scribe for Rj Diggs MD Witnessed shaking uppper ext while sitting up lasted approx 30 secs aborted by Ativan 2 mg IV. Provider Scribe Attestation: All medical record entries made by the Scribe were at my direction and personally dictated by me. I have reviewed the chart and agree that the record accurately reflects my personal performance of the history, physical exam, medical decision making, and the department course for this patient. I have also personally directed, reviewed, and agree with the discharge instructions and disposition. Disposition - Clinical Impression Clinical Impression: Seizure - Patient ED Disposition Is Patient to be Admitted: Yes - Disposition Disposition Time: 16:15 Condition: FAIR Forms: [employer] ([place]) - Pt Status Changed To: Hospital Disposition Of: Observation - POA Present On Arrival: None
--- NOTE | 2018-07-31 15:58 | CT ---
Date of service: 07/31/2018 PROCEDURE: CT HEAD WITHOUT CONTRAST. HISTORY: r/o bleed COMPARISON: 08/14/2017 CT head. Comparison with 09/28/2015 also made. TECHNIQUE: Axial computed tomography images were obtained through the head/brain without intravenous contrast. Radiation dose: Total exam DLP = 761.9 mGy-cm. This CT exam was performed using one or more of the following dose reduction techniques: Automated exposure control, adjustment of the mA and/or kV according to patient size, and/or use of iterative reconstruction technique. FINDINGS: HEMORRHAGE: No intracranial hemorrhage. BRAIN: The prior posterior left petrous ridge sessile extra-axial mass compatible with a meningioma here is similar with the 2016 image. There is some mass effect on the left anterior cerebral peduncle. This is not changed.The similar hyperdensity in the left internal auditory canal region is also similar and compatible with this same pathology. No interval hemorrhage seen. the left temporal lobe encephalomalacia and atrophy appear similar. VENTRICLES: Unremarkable. No hydrocephalus. CALVARIUM: The extensive left fronto temporal and left temporal occipital craniectomy changes The prior partial resection of the temporal left mastoid air cells is hree noted. Some probable wax in the left external auditory canal is similar in appearance as well PARANASAL SINUSES: Minimal ethmoidal sinus mucosal thickening inflammatory changes small concomitant retention cyst here possible. Findings of the right are more extensive than MASTOID AIR CELLS: Postsurgical changes stable in the left as above.. No inflammatory changes. Previously. OTHER FINDINGS: None. IMPRESSION: No interval hemorrhage seen. The left posterior petrous ridge extra-axial hyperdense mass are compatible with a meningioma here. The current mass effect on the left anterior cerebral peduncle is similar to the prior studies. Including 2016 study. No new areas of mass effect seen. Of the hyperdensity in the left internal auditory canal region also compatible with meningioma appearance as well. Extensive postsurgical changes-craniectomy changes and mostly left temporal lobe encephalomalacia changes these findings appear similar to prior studies.
--- NOTE | 2018-07-31 16:03 | RAD ---
Date of service: 07/31/2018 HISTORY: cough COMPARISON: 06/10/2018 FINDINGS: LUNGS: No active pulmonary disease. Bilateral hyperaeration-as before. PLEURA: No significant pleural effusion identified, no pneumothorax apparent. CARDIOVASCULAR: No aortic atherosclerotic calcification present. Normal cardiac size. No pulmonary vascular congestion. Single lead pacemaker device in place appears satisfactory no change OSSEOUS STRUCTURES: Partly visualized is a metallic hardware local spine fusion plate VISUALIZED UPPER ABDOMEN: Normal. OTHER FINDINGS: None. IMPRESSION: No active disease. No interval pathology noted.
[2018-07-31 17:21] LABS: BASO % 0.4 % (0.0-2.0); EOS # 0.1 K/uL (0.0-0.7); EOS % 2.2 % (0.0-4.0); HEMOGLOBIN 11.5 g/dL (12.0-16.0); LYMPH # 1.5 K/uL (1.0-4.3); MEAN CORPUSCULAR HEMOGLOBIN 28.6 pg (27.0-31.0); MEAN CORPUSCULAR HGB CONC 32.8 g/dL (33.0-37.0); MEAN PLATELET VOLUME 9.5 fl (7.2-11.7); MONO # 0.5 K/uL (0.0-0.8); NEUT # 3.1 K/uL (1.8-7.0); NEUT % 58.4 % (50.0-75.0); RBC 4.01 Mil/uL (3.80-5.20); RED CELL DISTRIBUTION WIDTH 13.9 % (11.5-14.5); WHITE BLOOD COUNT 5.3 K/uL (4.8-10.8)
[2018-07-31 17:34] LABS: ALB/GLOB RATIO 1.1 (1.0-2.1); ALBUMIN 4.2 g/dL (3.5-5.0); ALT/SGPT 31 U/L (9-52); AST/SGOT 45 U/L (14-36); BLOOD UREA NITROGEN 11 mg/dl (7-17); CALCIUM 9.9 mg/dL (8.4-10.2); GFR NON-AFRICAN AMERICAN > 60
[2018-07-31] MEDS ORDERED: Morphine 4 MG/ML VIAL ONE (18:35)
[2018-07-31] MEDS ORDERED: Ergocalciferol 50,000 Intl Units Cap PO SCH (22:15)
[2018-08-01] MEDS: Levothyroxine 100 MCG TAB PO SCH (05:38)
[2018-08-01 06:07] LABS: BASO % 0.7 % (0.0-2.0); EOS # 0.2 K/uL (0.0-0.7); EOS % 3.9 % (0.0-4.0); LYMPH # 1.6 K/uL (1.0-4.3); MEAN CELL VOLUME 87.4 fl (81.0-99.0); MEAN CORPUSCULAR HEMOGLOBIN 28.9 pg (27.0-31.0); MEAN CORPUSCULAR HGB CONC 33.1 g/dL (33.0-37.0); MEAN PLATELET VOLUME 9.8 fl (7.2-11.7); MONO # 0.3 K/uL (0.0-0.8); MONO % 8.5 % (0.0-10.0); NEUT # 1.9 K/uL (1.8-7.0); NEUT % 46.9 % (50.0-75.0); NRBC % 0.1 % (0.0-0.0); RBC 3.46 Mil/uL (3.80-5.20); RED CELL DISTRIBUTION WIDTH 13.7 % (11.5-14.5); WHITE BLOOD COUNT 4.1 K/uL (4.8-10.8)
[2018-08-01 06:33] LABS: LDL CHOLESTEROL 47 mg/dL (0-129); T4 8.55 ug/dl (5.5-11.0)
[2018-08-01 06:47] LABS: T3 0.909 nmol/L (1.49-2.60)
[2018-08-01 06:55] LABS: ALBUMIN 3.5 g/dL (3.5-5.0); ALT/SGPT 31 U/L (9-52); AST/SGOT 28 U/L (14-36); BLOOD UREA NITROGEN 10 mg/dl (7-17); CALCIUM 9.2 mg/dL (8.4-10.2); GFR NON-AFRICAN AMERICAN > 60; HDL CHOLESTEROL 68 MG/DL (30-70)
--- NOTE | 2018-08-01 09:58 | CP.PCM.HP ---
History of Present Illness - History of Present Illness History of Present Illness: 53 year old female, with a past medical history of seizures, who was brought to the emergency department by EMS due to recurrent seizures noted by homemaker as well as a seizure while in ED witnessed by nurse. Patient states history of brain tumor that was removed. Patient seen and examined at bedside today. Interim events noted. Neurology consult pending. Denies chest pain, sob, palpitations. Patient states pain by surgical site and back. Meds: as per chart Allergies: as per chart Family hx: non contributory Present on Admission - Present on Admission Any Indicators Present on Admission: No Review of Systems - Review of Systems All systems: reviewed and no additional remarkable complaints except (mentioned above) Past Patient History - Infectious Disease Hx of Infectious Diseases: None - Tetanus Immunizations Tetanus Immunization: Unknown - Past Medical History & Family History Past Medical History?: Yes Past Family History: Reviewed and not pertinent - Past Social History Smoking Status: Never Smoked - CARDIAC Hx Cardiac Disorders: Yes - PULMONARY Hx Asthma: Yes Hx Bronchitis: No Hx Chronic Obstructive Pulmonary Disease (COPD): No Hx Emphysema: No Hx Pneumonia: No Hx Pulmonary Embolism: No Hx Sleep Apnea: Yes - NEUROLOGICAL Hx Neurological Disorder: Yes - HEENT Hx HEENT Problems: Yes - RENAL Hx Chronic Kidney Disease: Yes - ENDOCRINE/METABOLIC Hx Endocrine Disorders: Yes - HEMATOLOGICAL/ONCOLOGICAL Hx AIDS: No Hx Human Immunodeficiency Virus (HIV): No - INTEGUMENTARY Hx Dermatological Problems: No - MUSCULOSKELETAL/RHEUMATOLOGICAL Hx Falls: No - GASTROINTESTINAL Hx Crohn's Disease: No Hx Diverticulitis: No Hx Gall Bladder Disease: Yes Hx Gastritis: No Hx Pancreatitis: No - GENITOURINARY/GYNECOLOGICAL Hx Sexually Transmitted Disorders: No - PSYCHIATRIC Hx Substance Use: No - SURGICAL HISTORY Hx Appendectomy: No Hx Carotid Endarterectomy: No Hx Cholecystectomy: No Hx Coronary Artery Bypass Graft: No Hx Coronary Stent: No Hx Tonsillectomy: Yes - ANESTHESIA Hx Anesthesia: Yes Hx Anesthesia Reactions: No Hx Malignant Hyperthermia: No Meds Allergies/Adverse Reactions: Allergies Allergy/AdvReac Type Severity Reaction Status Date / Time seasonal Allergy CONGESTION Uncoded 07/31/18 14:12 Physical Exam - Constitutional Appears: Non-toxic, No Acute Distress - Head Exam Head Exam: NORMOCEPHALIC - Eye Exam Eye Exam: Normal appearance - Respiratory Exam Respiratory Exam: NORMAL BREATHING PATTERN - Cardiovascular Exam Cardiovascular Exam: +S1, +S2 - Neurological Exam Neurological exam: Alert, Oriented x3 - Psychiatric Exam Psychiatric exam: Normal Affect, Normal Mood - Skin Skin Exam: Normal Color, Warm Results - Vital Signs Recent Vital Signs: Last Vital Signs Temp 97.8 F 08/01/18 08:15 Pulse 69 08/01/18 08:15 Resp 18 08/01/18 08:15 BP 97/62 L 08/01/18 08:15 Pulse Ox 100 08/01/18 08:15 - Labs Result Diagrams: 08/01/18 05:35 08/01/18 05:35 Labs: Laboratory Results - last 24 hr 07/31/18 07/31/18 08/01/18 16:35 16:35 05:35 WBC 5.3 4.1 L RBC 4.01 3.46 L Hgb 11.5 L 10.0 L Hct 34.9 30.2 L MCV 87.0 87.4 MCH 28.6 28.9 MCHC 32.8 L 33.1 RDW 13.9 13.7 Plt Count 207 185 MPV 9.5 9.8 Neut % (Auto) 58.4 46.9 L Lymph % (Auto) 29.0 40.0 Nobles % (Auto) 10.0 8.5 Eos % (Auto) 2.2 3.9 Baso % (Auto) 0.4 0.7 Neut # (Auto) 3.1 1.9 Lymph # (Auto) 1.5 1.6 Nobles # (Auto) 0.5 0.3 Eos # (Auto) 0.1 0.2 Baso # (Auto) 0.0 0.0 Sodium 140 Potassium 3.6 Chloride 101 Carbon Dioxide 27 Anion Gap 16 BUN 11 Creatinine 0.9 Est GFR ( Amer) > 60 Est GFR (Non-Af Amer) > 60 Random Glucose 85 Calcium 9.9 Phosphorus Magnesium 1.6 Total Bilirubin 0.2 AST 45 H D ALT 31 Alkaline Phosphatase 74 Total Protein 8.0 Albumin 4.2 Globulin 3.9 Albumin/Globulin Ratio 1.1 Triglycerides Cholesterol LDL Cholesterol Direct HDL Cholesterol Thyroxine (T4) Total T3 TSH 3rd Generation 08/01/18 05:35 WBC RBC Hgb Hct MCV MCH MCHC RDW Plt Count MPV Neut % (Auto) Lymph % (Auto) Nobles % (Auto) Eos % (Auto) Baso % (Auto) Neut # (Auto) Lymph # (Auto) Nobles # (Auto) Eos # (Auto) Baso # (Auto) Sodium 138 Potassium 3.9 Chloride 101 Carbon Dioxide 28 Anion Gap 13 BUN 10 Creatinine 0.9 Est GFR ( Amer) > 60 Est GFR (Non-Af Amer) > 60 Random Glucose 83 Calcium 9.2 Phosphorus 5.0 H Magnesium 1.6 Total Bilirubin 0.2 AST 28 ALT 31 Alkaline Phosphatase 66 Total Protein 6.9 Albumin 3.5 Globulin 3.4 Albumin/Globulin Ratio 1.0 Triglycerides 50 D Cholesterol 128 LDL Cholesterol Direct 47 HDL Cholesterol 68 Thyroxine (T4) 8.55 Total T3 0.909 L TSH 3rd Generation 1.83 Assessment & Plan (1) Seizure Status: Acute - Assessment and Plan (Free Text) Plan: available diagnostic data reviewed discussed with patients PCP, Dr. Melchor. Reviewed patients BELL PERSON aware pending neurology consultation appreciate recommendations monitor labs monitor vitals adjust pain meds to control pain rest of plan as ordered
[2018-08-01] MEDS ORDERED: Oxycodone/Acetaminophen 5/325 mg Tab PO PRN (11:03)
--- NOTE | 2018-08-01 11:55 | CARD ---
APPROVED REPORT Date of service: 07/31/2018 EKG Measurement Heart [id number] <Conclusion> Normal sinus rhythm Normal ECG
[2018-08-01] MEDS: HYDROmorphone 0.5 mg/0.5 ml ISec IVP PRN (15:05)
--- NOTE | 2018-08-01 15:39 | CP.PCM.CON ---
History of Present Illness - History of Present Illness History of Present Illness: Neurology Consultation Note: Consult requested by Dr. Burrell Mrs. Longoria is a 53-year-old woman with a past medical history of left temporal lobe resection for brain tumor (likely meningioma), with epilepsy who had several witnessed seizures yesterday and was admitted for further management. The patient is currently back to her baseline, she is on Tegretol (200 Q12) and Keppra (1500 Q12), she states that she takes all of her medications regularly. She recently had reconstructive surgery to the area of previous tumor resection in the temporal region and was told that she had a seizure while on the OR table. The patient sees a neurologist at [place], who is managing her seizure medications and recently performed video EEG. Review of Systems - Review of Systems Systems not reviewed;Unavailable: Altered Mental Status Past Patient History - Infectious Disease Hx of Infectious Diseases: None - Tetanus Immunizations Tetanus Immunization: Unknown - Past Medical History & Family History Past Medical History?: Yes - Past Social History Smoking Status: Never Smoked - CARDIAC Hx Cardiac Disorders: Yes - PULMONARY Hx Asthma: Yes Hx Bronchitis: No Hx Chronic Obstructive Pulmonary Disease (COPD): No Hx Emphysema: No Hx Pneumonia: No Hx Pulmonary Embolism: No Hx Sleep Apnea: Yes - NEUROLOGICAL Hx Neurological Disorder: Yes - HEENT Hx HEENT Problems: Yes - RENAL Hx Chronic Kidney Disease: Yes - ENDOCRINE/METABOLIC Hx Endocrine Disorders: Yes - HEMATOLOGICAL/ONCOLOGICAL Hx AIDS: No Hx Human Immunodeficiency Virus (HIV): No - INTEGUMENTARY Hx Dermatological Problems: No - MUSCULOSKELETAL/RHEUMATOLOGICAL Hx Falls: No - GASTROINTESTINAL Hx Crohn's Disease: No Hx Diverticulitis: No Hx Gall Bladder Disease: Yes Hx Gastritis: No Hx Pancreatitis: No - GENITOURINARY/GYNECOLOGICAL Hx Sexually Transmitted Disorders: No - PSYCHIATRIC Hx Substance Use: No - SURGICAL HISTORY Hx Appendectomy: No Hx Carotid Endarterectomy: No Hx Cholecystectomy: No Hx Coronary Artery Bypass Graft: No Hx Coronary Stent: No Hx Tonsillectomy: Yes - ANESTHESIA Hx Anesthesia: Yes Hx Anesthesia Reactions: No Hx Malignant Hyperthermia: No Meds Allergies/Adverse Reactions: Allergies Allergy/AdvReac Type Severity Reaction Status Date / Time seasonal Allergy CONGESTION Uncoded 07/31/18 14:12 - Medications Medications: Current Medications Acetaminophen (Tylenol 325mg Tab) 650 mg PO Q6 PRN PRN Reason: Pain, Mild (1-3) Atorvastatin Calcium (Lipitor) 20 mg PO HS COUNT INCLUDES THE [facility] Last Admin: 08/01/18 09:12 Dose: Not Given Carbamazepine (Tegretol) 200 mg PO Q12 COUNT INCLUDES THE [facility] Last Admin: 08/01/18 09:13 Dose: 200 mg Ergocalciferol (Drisdol 50,000 Intl Units Cap) 1 cap PO Q7D COUNT INCLUDES THE [facility] Last Admin: 07/31/18 23:06 Dose: 1 cap Home Med (Lubiprostone [Amitiza]) 24 mcg PO BID COUNT INCLUDES THE [facility] Hydromorphone HCl (Dilaudid) 0.5 mg IVP Q6 PRN PRN Reason: Pain, severe (8-10) Last Admin: 08/01/18 15:05 Dose: 0.5 mg Levothyroxine Sodium (Synthroid) 100 mcg PO DAILY@0630 COUNT INCLUDES THE [facility] Last Admin: 08/01/18 05:38 Dose: 100 mcg Lorazepam (Ativan) 2 mg IVP Q3 PRN PRN Reason: Seizure activity Last Admin: 08/01/18 10:56 Dose: 2 mg Midodrine (Proamatine) 5 mg PO BID COUNT INCLUDES THE [facility] Last Admin: 08/01/18 09:12 Dose: 5 mg Montelukast Sodium (Singulair) 10 mg PO HS COUNT INCLUDES THE [facility] Last Admin: 07/31/18 23:06 Dose: 10 mg Ondansetron HCl (Zofran Inj) 4 mg IVP Q6 PRN PRN Reason: Nausea/Vomiting Oxycodone/Acetaminophen (Percocet 5/325 Mg Tab) 1 tab PO Q4 PRN PRN Reason: Pain, moderate (4-7) Stop: 08/04/18 11:04 Pregabalin (Lyrica) 75 mg PO BID COUNT INCLUDES THE [facility] Last Admin: 08/01/18 09:12 Dose: 75 mg Pregabalin (Lyrica) 100 mg PO [facility] Last Admin: 07/31/18 23:43 Dose: 100 mg Fluticasone/Salmeterol (Advair Diskus 100/50) 1 puff IH Q12 COUNT INCLUDES THE [facility] Trazodone HCl (Desyrel) 150 mg PO [facility] Last Admin: 07/31/18 23:06 Dose: 150 mg Zolpidem Tartrate (Ambien) 5 mg PO HS PRN PRN Reason: Insomnia Physical Exam - Constitutional Appears: Well - Head Exam Head Exam: ATRAUMATIC, NORMAL INSPECTION, NORMOCEPHALIC - Eye Exam Eye Exam: EOMI, Normal appearance, PERRL Pupil Exam: NORMAL ACCOMODATION, PERRL - ENT Exam ENT Exam: Mucous Membranes Moist, Normal Exam - Neck Exam Neck exam: Positive for: Normal Inspection - Respiratory Exam Respiratory Exam: Clear to Auscultation Bilateral, NORMAL BREATHING PATTERN - Cardiovascular Exam Cardiovascular Exam: REGULAR RHYTHM, +S1, +S2 - GI/Abdominal Exam GI & Abdominal Exam: Normal Bowel Sounds, Soft. absent: Tenderness - Extremities Exam Extremities exam: Positive for: normal inspection - Back Exam Back exam: NORMAL INSPECTION - Neurological Exam Neurological exam: Abnormal Gait, Alert, CN II-XII Intact, Oriented x3, Reflexes Normal Additional comments: She has some difficulty with recall and memory is slightly impaired. She has left lower extremity weakness with 3/5 strength proximally and 3/5 strength distally. Reflexes are brisk on the left side as well. Upgoing plantar response on the right. Sensation is intact thoughout. - Psychiatric Exam Psychiatric exam: Normal Affect, Normal Mood - Skin Skin Exam: Dry, Intact, Normal Color, Warm Results - Vital Signs Recent Vital Signs: Last Vital Signs Temp 97.8 F 08/01/18 12:05 Pulse 76 08/01/18 12:05 Resp 18 08/01/18 12:05 BP 94/61 L 08/01/18 12:05 Pulse Ox 99 08/01/18 12:05 - Labs Result Diagrams: 08/01/18 05:35 08/01/18 05:35 Labs: Laboratory Results - last 24 hr 07/31/18 07/31/18 08/01/18 16:35 16:35 05:35 WBC 5.3 4.1 L RBC 4.01 3.46 L Hgb 11.5 L 10.0 L Hct 34.9 30.2 L MCV 87.0 87.4 MCH 28.6 28.9 MCHC 32.8 L 33.1 RDW 13.9 13.7 Plt Count 207 185 MPV 9.5 9.8 Neut % (Auto) 58.4 46.9 L Lymph % (Auto) 29.0 40.0 [place] % (Auto) 10.0 8.5 Eos % (Auto) 2.2 3.9 Baso % (Auto) 0.4 0.7 Neut # (Auto) 3.1 1.9 Lymph # (Auto) 1.5 1.6 [place] # (Auto) 0.5 0.3 Eos # (Auto) 0.1 0.2 Baso # (Auto) 0.0 0.0 Sodium 140 Potassium 3.6 Chloride 101 Carbon Dioxide 27 Anion Gap 16 BUN 11 Creatinine 0.9 Est GFR ( Amer) > 60 Est GFR (Non-Af Amer) > 60 Random Glucose 85 Hemoglobin A1c Calcium 9.9 Phosphorus Magnesium 1.6 Total Bilirubin 0.2 AST 45 H D ALT 31 Alkaline Phosphatase 74 Total Protein 8.0 Albumin 4.2 Globulin 3.9 Albumin/Globulin Ratio 1.1 Triglycerides Cholesterol LDL Cholesterol Direct HDL Cholesterol Thyroxine (T4) Total T3 TSH 3rd Generation 08/01/18 08/01/18 05:35 05:35 WBC RBC Hgb Hct MCV MCH MCHC RDW Plt Count MPV Neut % (Auto) Lymph % (Auto) [place] % (Auto) Eos % (Auto) Baso % (Auto) Neut # (Auto) Lymph # (Auto) [place] # (Auto) Eos # (Auto) Baso # (Auto) Sodium 138 Potassium 3.9 Chloride 101 Carbon Dioxide 28 Anion Gap 13 BUN 10 Creatinine 0.9 Est GFR ( Amer) > 60 Est GFR (Non-Af Amer) > 60 Random Glucose 83 Hemoglobin A1c 5.4 Calcium 9.2 Phosphorus 5.0 H Magnesium 1.6 Total Bilirubin 0.2 AST 28 ALT 31 Alkaline Phosphatase 66 Total Protein 6.9 Albumin 3.5 Globulin 3.4 Albumin/Globulin Ratio 1.0 Triglycerides 50 D Cholesterol 128 LDL Cholesterol Direct 47 HDL Cholesterol 68 Thyroxine (T4) 8.55 Total T3 0.909 L TSH 3rd Generation 1.83 Assessment & Plan (1) Seizure Assessment and Plan: Will check carbamazepine and levatiracetam levels and adjust dosing based on levels. The patient's seizures are difficult to control and she may continue to have seizures despite being on multiple medications. Follow up with outpatient neurologist. Thank you for this consultation. Status: Acute
[2018-08-01] MEDS: Fluticasone-Salmeterol 100-50mcg Diskus IH SCH (21:44)
[2018-08-02] MEDS: Levothyroxine 100 MCG TAB PO SCH (06:15)
[2018-08-02] MEDS: HYDROmorphone 0.5 mg/0.5 ml ISec IVP PRN (06:19)
[2018-08-02] MEDS: Fluticasone-Salmeterol 100-50mcg Diskus IH SCH ×2 (09:35→21:19)
[2018-08-03] MEDS: Levothyroxine 100 MCG TAB PO SCH (07:16)
[2018-08-03] MEDS: Fluticasone-Salmeterol 100-50mcg Diskus IH SCH ×2 (08:46→21:13)
[2018-08-03] MEDS: HYDROmorphone 0.5 mg/0.5 ml ISec IVP PRN (17:32)
[2018-08-04] MEDS: Levothyroxine 100 MCG TAB PO SCH (05:35)
[2018-08-04 08:40] VITALS: PULSE 71; O2SAT 100
[2018-08-04] MEDS: Fluticasone-Salmeterol 100-50mcg Diskus IH SCH (08:55)
[2018-08-04] MEDS ORDERED: Apap-Butalbital-Caffeine 325-50-40mg Tab PO ONE (14:00)
[2018-08-04 15:52] VITALS: BP 98/63; RESP 17; TEMP 98.2
[2018-08-06 14:15] LABS: PREGABALIN 3.4 mcg/mL
--- NOTE | 2018-08-06 19:02 | CP.PCM.PN ---
Subjective - Date & Time of Evaluation Date of Evaluation: 08/02/18 Time of Evaluation: 11:00 - Subjective Subjective: Patient is stable Has some dizziness and recurrent headaches CT scan showed hemangioma of the same size. Objective - Vital Signs/Intake and Output Vital Signs (last 24 hours): Temp Pulse Resp BP Pulse Ox 98.2 F 71 17 98/63 L 100 08/04/18 15:51 08/04/18 15:51 08/04/18 15:51 08/04/18 15:51 08/04/18 15:51 - Labs Labs: 08/01/18 05:35 08/01/18 05:35 - Head Exam Head Exam: NORMAL INSPECTION - Eye Exam Eye Exam: Normal appearance - ENT Exam ENT Exam: Mucous Membranes Moist - Respiratory Exam Respiratory Exam: Clear to Ausculation Bilateral - Cardiovascular Exam Cardiovascular Exam: REGULAR RHYTHM - GI/Abdominal Exam GI & Abdominal Exam: Normal Bowel Sounds Assessment and Plan (1) Epileptic seizures Status: Acute (2) Meningioma, malignant Status: Acute - Assessment and Plan (Free Text) Plan: Con tmeds Follow up with Neurology cont monitor
--- NOTE | 2018-08-06 19:05 | CP.PCM.PN ---
Subjective - Date & Time of Evaluation Date of Evaluation: 08/03/18 Time of Evaluation: 16:35 - Subjective Subjective: Patient is stable Has no chest pain or SOB Afebrile Has no seizure but feels weak. Objective - Vital Signs/Intake and Output Vital Signs (last 24 hours): Temp Pulse Resp BP Pulse Ox 98.2 F 71 17 98/63 L 100 08/04/18 15:51 08/04/18 15:51 08/04/18 15:51 08/04/18 15:51 08/04/18 15:51 - Labs Labs: 08/01/18 05:35 08/01/18 05:35 - Head Exam Head Exam: NORMAL INSPECTION - Eye Exam Eye Exam: Normal appearance - ENT Exam ENT Exam: Mucous Membranes Moist - Respiratory Exam Respiratory Exam: Clear to Ausculation Bilateral - Cardiovascular Exam Cardiovascular Exam: REGULAR RHYTHM - GI/Abdominal Exam GI & Abdominal Exam: Normal Bowel Sounds Assessment and Plan (1) Epileptic seizures Status: Acute (2) Meningioma, malignant Status: Acute - Assessment and Plan (Free Text) Plan: Con tmeds Cont tx Cont PT discharge plans
--- NOTE | 2018-08-06 19:08 | CP.PCM.DIS ---
Provider - Provider Date of Admission: 08/02/18 13:47 Attending physician: Jaret Burrell MD Consults: 07/31/18 19:00 Neurology Consult Routine Comment: Consulting Provider: Mendez Henry Consulting Physician: Mendez Henry Reason for Consult: seizures, meningioma Time Spent in preparation of Discharge (in minutes): 30 Diagnosis - Discharge Diagnosis (1) Epileptic seizures Status: Acute (2) Meningioma, malignant Status: Acute Hospital Course - Lab Results Lab Results: Most Recent Lab Values WBC 4.1 K/uL (4.8-10.8) L 08/01/18 05:35 RBC 3.46 Mil/uL (3.80-5.20) L 08/01/18 05:35 Hgb 10.0 g/dL (12.0-16.0) L 08/01/18 05:35 Hct 30.2 % (34.0-47.0) L 08/01/18 05:35 MCV 87.4 fl (81.0-99.0) 08/01/18 05:35 MCH 28.9 pg (27.0-31.0) 08/01/18 05:35 MCHC 33.1 g/dL (33.0-37.0) 08/01/18 05:35 RDW 13.7 % (11.5-14.5) 08/01/18 05:35 Plt Count 185 K/uL (130-400) 08/01/18 05:35 MPV 9.8 fl (7.2-11.7) 08/01/18 05:35 Neut % (Auto) 46.9 % (50.0-75.0) L 08/01/18 05:35 Lymph % (Auto) 40.0 % (20.0-40.0) 08/01/18 05:35 [place] % (Auto) 8.5 % (0.0-10.0) 08/01/18 05:35 Eos % (Auto) 3.9 % (0.0-4.0) 08/01/18 05:35 Baso % (Auto) 0.7 % (0.0-2.0) 08/01/18 05:35 Neut # (Auto) 1.9 K/uL (1.8-7.0) 08/01/18 05:35 Lymph # (Auto) 1.6 K/uL (1.0-4.3) 08/01/18 05:35 [place] # (Auto) 0.3 K/uL (0.0-0.8) 08/01/18 05:35 Eos # (Auto) 0.2 K/uL (0.0-0.7) 08/01/18 05:35 Baso # (Auto) 0.0 K/uL (0.0-0.2) 08/01/18 05:35 Sodium 138 mmol/l (132-148) 08/01/18 05:35 Potassium 3.9 MMOL/L (3.6-5.0) 08/01/18 05:35 Chloride 101 mmol/L (98-107) 08/01/18 05:35 Carbon Dioxide 28 mmol/L (22-30) 08/01/18 05:35 Anion Gap 13 (10-20) 08/01/18 05:35 BUN 10 mg/dl (7-17) 08/01/18 05:35 Creatinine 0.9 mg/dl (0.7-1.2) 08/01/18 05:35 Est GFR ( Amer) > 60 08/01/18 05:35 Est GFR (Non-Af Amer) > 60 08/01/18 05:35 Random Glucose 83 mg/dL (65-105) 08/01/18 05:35 Hemoglobin A1c 5.4 % (4.2-6.5) 08/01/18 05:35 Calcium 9.2 mg/dL (8.4-10.2) 08/01/18 05:35 Phosphorus 5.0 mg/dl (2.5-4.5) H 08/01/18 05:35 Magnesium 1.6 MG/DL (1.6-2.3) 08/01/18 05:35 Total Bilirubin 0.2 mg/dl (0.2-1.3) 08/01/18 05:35 AST 28 U/L (14-36) 08/01/18 05:35 ALT 31 U/L (9-52) 08/01/18 05:35 Alkaline Phosphatase 66 U/L (38-126) 08/01/18 05:35 Total Protein 6.9 G/DL (6.3-8.2) 08/01/18 05:35 Albumin 3.5 g/dL (3.5-5.0) 08/01/18 05:35 Globulin 3.4 gm/dL (2.2-3.9) 08/01/18 05:35 Albumin/Globulin Ratio 1.0 (1.0-2.1) 08/01/18 05:35 Triglycerides 50 mg/DL (0-149) D 08/01/18 05:35 Cholesterol 128 mg/dL (0-199) 08/01/18 05:35 LDL Cholesterol Direct 47 mg/dL (0-129) 08/01/18 05:35 HDL Cholesterol 68 MG/DL (30-70) 08/01/18 05:35 Thyroxine (T4) 8.55 ug/dl (5.5-11.0) 08/01/18 05:35 Total T3 0.909 nmol/L (1.49-2.60) L 08/01/18 05:35 TSH 3rd Generation 1.83 mIU/ML (0.46-4.68) 08/01/18 05:35 Carbamazepine 11.2 ug/mL (4.0-12.0) 08/01/18 16:34 Pregabalin 3.4 mcg/mL 08/01/18 16:34 Levetiracetam 6.8 mcg/mL 08/01/18 16:34 - Hospital Course Hospital Course: This is a 53 y/o female with hx of meningioma and recurrent seizure. She was admitted due to intractable seizure despite being on Keppra. She follows up with Dr Baldemar Funk. Discharge Exam - Head Exam Head Exam: NORMAL INSPECTION - Eye Exam Eye Exam: Normal appearance - Respiratory Exam Respiratory Exam: NORMAL BREATHING PATTERN - Cardiovascular Exam Cardiovascular Exam: REGULAR RHYTHM - GI/Abdominal Exam GI & Abdominal Exam: Normal Bowel Sounds - Neurological Exam Neurological exam: CN II-XII Intact - Psychiatric Exam Psychiatric exam: Normal Mood Discharge Plan - Follow Up Plan Condition: FAIR Disposition: HOME/ ROUTINE Instructions: Seizures, Adult (DC) Additional Instructions: Follow up with Dr. Funk and primary care physician. Continue all home medi cations. Referrals: Tomas Funk MD [Staff Provider] -
[2018-08-07] MEDS ORDERED: Ergocalciferol 50,000 Intl Units Cap PO SCH (14:52)
--- NOTE | 2018-08-07 19:33 | PQF ---
PROVIDER RESPONSE TEXT: Stable asthma, unknown type. REVIEWER QUERY TEXT: Asthma Specificity and Type Asthma is documented in the Medical Record. Please specify the severity and type: if known ie. 1. Stable or Exacerbation ----AND---- 2. Type -- Mild intermittent -- Mild persistent -- Moderate persistent -- Severe persistent -- Other, please specify H and P: Respiratory: Exam: NORMAL BREATHING PATTERN Hx. includes: Asthma - Advair Diskus The patient's Clinical Indicators include: -- Query created by: Yas Auguste on 08/02/2018 3:44 PM Electronically signed by: Jaret Burrell 08/07/2018 7:30 PM
--- NOTE | 2018-08-07 19:34 | PQF ---
PROVIDER RESPONSE TEXT: Provider was unable to determine a response for this query. REVIEWER QUERY TEXT: Rheumatoid Arthritis Specificity Hx. Rheumatoid arthritis is documented in the Medical Record. If in agreement: Please clarify the s pecific site and laterality. Please also specify any associated conditions Such as -- Bursitis -- Felty?s syndrome -- Juvenile (Please specify type) -- Myopathy -- Nodule -- Organ involvement (Please indicate organ involved and specific disorder) -- Polyneuropathy -- With Rheumatoid Factor -- Other, please specify -Disagree ER note includes: Hx. RA -Lyrica The patient's Clinical Indicators include: ---- Query created by: Yas Auguste on 08/02/2018 3:47 PM Electronically signed by: Jaret Burrell 08/07/2018 7:30 PM
== END 2018-08-04 16:00 | disposition home or self-care (01) | DRG 101 ==
LOC: H.ER 14:09 → H.ERHOLD 16:09 → H.TEL 20:51 → OBSVTOIN 08-02 13:47
PROVIDERS: ADMIT Family Medicine; ATTEND Family Medicine
DX: G40.919 Epilepsy, unspecified, intractable, without status epilepticus (principal); J45.909 Unspecified asthma, uncomplicated; D57.1 Sickle-cell disease without crisis; M06.9 Rheumatoid arthritis, unspecified; E03.9 Hypothyroidism, unspecified; E11.22 Type 2 diabetes mellitus with diabetic chronic kidney disease; E78.00 Pure hypercholesterolemia, unspecified; G47.30 Sleep apnea, unspecified; I25.10 Atherosclerotic heart disease of native coronary artery without angina pectoris; I12.9 Hypertensive chronic kidney disease with stage 1 through stage 4 chronic kidney disease, or unspecified chronic kidney disease; F32.9 Major depressive disorder, single episode, unspecified; N18.9 Chronic kidney disease, unspecified; Z79.890 Hormone replacement therapy; Z95.0 Presence of cardiac pacemaker; M19.90 Unspecified osteoarthritis, unspecified site; F20.9 Schizophrenia, unspecified; Z85.848 Personal history of malignant neoplasm of other parts of nervous tissue